=== PATIENT | female | born 1985 | race Caucasian/White ===

== ENCOUNTER 2021-10-06 13:30 | Outpatient (CLI) | payer SELFPAY | END 2021-10-06 13:31 | disposition home or self-care (01) | LOC: NFLDREF 10-12 15:04 | PROVIDERS: Visit Provider Physician Assistant | DX: O30.041 Twin pregnancy, dichorionic/diamniotic, first trimester (principal); Z3A.01 Less than 8 weeks gestation of pregnancy; Z11.3 Encounter for screening for infections with a predominantly sexual mode of transmission; Z36.89 Encounter for other specified antenatal screening | CPT/HCPCS: 36415; 76817; 86592; 86703; 86762; 86803; 86850; 86900; 86901; 87086; 87340; 87491; 87591 ==

== ENCOUNTER 2022-01-05 10:29 | Outpatient (CLI) | payer OTHER, SELFPAY ==
--- OUTSIDE RECORDS SUMMARY | 2022-01-05 11:50 | XMS_ITS | Encounter Summary ---
:1985 Author Organization [place] Address [address] [facility] [address] Care Team Providers Name Role Phone Preeti Bravo MD Unavailable Reason for Visit Reason Comments Ultrasound L2-Di/di twins, AMA, obesity Encounter Details Date Type Department Care Team Description 01/01/2022 Office Visit [facility] Preeti Tapia MD [address] [place], [place] [id number] Dichorionic Maternal Candy Arnold DO [address] [place] [address] diamniotic twin Medicine Center in second [place] trimester (Primary [address]) [address] [place] [address] Social History Tobacco Use Types Packs/Day Years Used Date Smoking Tobacco: Never Assessed Sex Assigned at Date Recorded Not on file COVID-19 Exposure Response Date Recorded In the last 10 days, have you been in contact with No / Unsu re 01/01/2022 8:32 AM PRESSURE DISPATCHER someone who was confirmed or suspected to have Coronavirus/COVID-19? documented as of this encounter Progress Notes Candy Arnold DO - 01/01/2022 10:00 AM CST Please see Imaging tab under Chart Review for details of today's US. Candy Arnold DO SURE DISPATCHER documented in this encounter Plan of Treatment Not on filedocumented as of this encounter Visit Diagnoses Diagnosis Dichorionic diamniotic twin in second trimester - Primary Twin , antepartum documented in this encounter Care Teams Software Configuration Analyst Relationship Specialty Start Date End Date Preeti Bravo MD Assigned OBGYN Provider 11/11/[address] [place] [address] [address] [place] [address] documented as of this encounter
--- OUTSIDE RECORDS SUMMARY | 2022-01-05 11:50 | XMS_ITS | Encounter Summary ---
:1985 Author Organization [place] Address [address] [place] [address] Care Team Providers Name Role Phone Unavailable Primary Care Provider Unavailable Reason for Visit Reason Comments Drug Screen preemployment [employer] Encounter Details Date Type Department Care Team Description 05/29/2007 Office Visit [facility] Health Nurse, Maye [facility] EXAM[facility] System in [place] [facility] SURVEY (Primary Dx) Occupational Medicin e [address] [place] [address] [address] [place] [address] Social History Tobacco Use Types Packs/Day Years Used Date Smoking Tobacco: Never Assessed Sex Assigned at Date Recorded Not on file documented as of this encounter Nursing Notes 05/29/2007 12:15 PM CDT >> KRISS GREEN 05/29/2007 12:18 pm Pre employment uds for [employer] uneventful collection. documented in this encounter Plan of Treatment Not on filedocumented as of this encounter Visit Diagnoses Diagnosis Health examination of defined subpopulat ion - Primary documented in this encounter
--- OUTSIDE RECORDS SUMMARY | 2022-01-05 11:50 | XMS_ITS | Clinical Summary ---
:1985 Author Organization [facility] Address [address] [place] [id number] Care Team Providers Name Role Phone Preeti Bravo MD Unavailable Encounters Date Type Specialty Care Team Description 01/01/2022 Office Visit Maternal and Preeti Bravo Dichorionic Medicine diamniotic twin Arnold, in se cond Candy Galvan, trimester ( Primary DO Dx) 01/01/2022 Hospital Encounter Radiology. Preeti Bravo, Dichpepito onic diamniotic twin in first trimester; Multigravida of advanced maternal age in first trimester Candy Arnold DO 01/01/2022 Travel 11/03/2021 Office Visit Maternal and May Dichorionic diamniotic twin in first trimester (Primary Dx); Medicine Franklyn Interiano Multigravida of advanced maternal age in first trimester MD Lawrence Novak Sabrina, MD 11/03/2021 Office Visit Maternal and [place] Multigravida of advanced maternal age in first trimester (Primary Dx); Medicine Franklyn Interiano re lated condition, antepartum; MD Kishore Twin Preeti Bravo MD Stoner, Natalie E 11/03/2021 Hospital Encounter Radiology. Rosette, May il related Franklyn Interiano conditionKishore MD antepartum Preeti Bravo MD 11/03/2021 Travel 10/28/2021 PRE VISIT Maternal and [place] Ultrasound Medicine DEON Weaver (US-confirm chorionicity); Genetic Front Desk Receptionist ing (-twin pregna ncy, AMA) 10/12/2021 Transcribe Orders Maternal and Fitzloff, May Pregnan cy related Medicine condition, antepartum (Mary Lou leilani Dx) 10/07/2021 Transcribe Orders Maternal and Fitzloff, May Pregnan cy related Medicine condition, antepartum (Mary Lou leilani Dx) 10/06/2021 Medical Correspondence Scan, MATER NAL Non-Provider MEDICINE CENTER PROVIDER SERVIC E REQUEST- OUTPAT [facility] from Last 3 Months Social History Tobacco Use Types Packs/Day Years Used Date Smoking Tobacco: Never Assessed Estimated Date of Delivery Comments Yes 05/23/2022 Based on last menstr ual period of 08/16/2021 Sex Assigned at Date Recorded Not on file COVID-19 Exposure Response Date Recorded In the last 10 days, have you been in contact with No / Unsu re 01/01/2022 8:32 AM EXPLOSIVE OPERATOR FUSE someone who was confirmed or suspected to have Coronavirus/COVID-19? Plan of Treatment Health Maintenance Due Date Last Done Comments ADVANCE CARE PLANNING 1985 ANNUAL REVIEW OF HM ORDERS 1985 HEPATITIS B IMMUNIZATION (1 1985 of 3 - 3-dose series) YEARLY PREVENTIVE VISIT 1985 COVID-19 Vaccine (#1) 05/24/1986 HIV SCREENING 2000 HEPATITIS C SCREENING 11/24/2003 PHQ-2 (once per calendar 02/14/2021 year) INFLUENZA VACCINE (#1) 2021 12/11/2008, 12/11/2008 MATERNAL SCREENING 11/29/2021 OBGCT (OB) 01/31/2022 DTAP/TDAP/TD IMMUNIZATION (4 03/30/2023 03/30/2013, - Td or Tdap) 03/12/2013, 05/28/1998 PAP 10/06/2024 10/06/2021, 11/25/2020 IPV IMMUNIZATION Aged Out No longer eligi ble based on patient's age to complete this to pic MENINGITIS IMMUNIZATION Aged Out No longe r eligible based on patient's age to complete this to pic Pneumococcal Vaccine: Aged Out No longer eligible based Pediatrics (0 to 5 Years) and on patient's age to At-Risk Patients (6 to 64 comple te this topic Years) Procedures Procedure Name Priority Date/Time Associated Comments Diagnosis MFM TWINS US Routine 01/01/2022 10:01 Dichorionic Results for this COMPREHENSIVE AM EXPLOSIVE OPERATOR FUSE diamniotic twin procedure a re in in first the resul ts trimester section. Multigravida of advanced maternal age in first trimester MFM TWINS NUCHAL Routine 11/03/2021 9:43 AM related Results for this TRANSLUCENCY W US CDT condition, procedure are in antepartum the results section. from Last 3 Months Results MFM Twins US Comprehensive (01/01/2022 10:01 AM EXPLOSIVE OPERATOR FUSE) Anatomical Region Laterality Modality Ultrasound Specimen (Source) Anatomical Collection Method Collection Time Re ceived Time Location / / Volume Laterality 01/01/2022 8:22 AM EXPLOSIVE OPERATOR FUSE Impressions 01/01/2022 4:57 PM EXPLOSIVE OPERATOR FUSE IMPRESSION 1) Diamniotic dichorionic twin at 19 5/7 weeks gestational age. 2) None of the anomalies commonly detect ed by ultrasound were evident in the detailed anatomic survey described above in either twin. 3) Growth parameters and estimated weight were consistent with an appropriate for gestation age pattern of growth in both twins. The intertwin discordance is within normal limits. 4) The amniotic fluid volume appeared no rmal around both twins. Narrative 01/01/2022 4:57 PM EXPLOSIVE OPERATOR FUSE Comprehensive Pat. Name: MILKA COREA Study Date: 03/03/2021 8:22am Pat. NO: [id number] Referring ??MD: ANDRÉS TOMAS Site: [facility] Engineering Model Maker: Leilani Horne RD MS : 1985 Age: 36 INDICATION Advanced Maternal Age, Obesity - BMI 36. Dichorionic, Diamniotic Twin gestation. METHOD Transabdominal ultrasound examination. V iew: Suboptimal view: limited by maternal body habitus Twin . Dichorionic-diamniotic. Number of fetuses: 2 DATING ? Date ?Details ?Gest. age ?NANCY LMP ?08/16/2021 ? 19 w + 5 d ? 05/23/2022 Prior assessment ? GA: 7 w + 1 d ?19 w + 4 d ? 05/24/2022 U/S Fetus 1 ? 01/01/2022 ? based upon AC, BPD, Femur, HC ? 20 w + 3 d ? 05/18/2022 U/S Fetus 2 ?based upon AC, BPD, Femur, HC ?20 w + 2 d ? 05/19/2022 Assigned dating ?Dating performed on 01/01/2022, based on the LMP ? 19 w + 5 d ? 05/23/2022 Fetus 1: GENERAL EVALUATION Cardiac activity present. FHR 149 bpm. movements present. Presentation breech, maternal left. Placenta Anterior, thick dividing membra ne. Umbilical cord 3 vessel cord. Amniotic fluid Amount of AF: normal. MVP 6.0 cm. Fetus 2: GENERAL EVALUATION Cardiac activity present. FHR 153 bpm. movements present. Presentation breech, maternal right. Placenta Posterior, thick dividing membr ane. Umbilical cord 3 vessel cord. Amniotic fluid Amount of AF: normal. MVP 6.2 cm. Fetus 1: BIOMETRY Main Biometry: BPD ?47.8 ?mm ? 20w 3d ?Hadlock OFD ?64.8 ?mm ? 20w 4d ?Nicolaides HC ?180.8 ?mm ?20w 3d ?Hadlock Cerebellum tr ?21.2 ? mm ?20w 1d ?Nicolaides AC ?150.3 ?mm ?20w 2d ?64% ?Hadlock Femur ?33.6 ? mm ?20w 4d ?Hadlock Humerus ?32.0 ?mm ? 20w 5d ?Tatiana Weight Calculation: EFW ? 352 ? g ? 82% ?Hadlock EFW (lb,oz) ? 0 lb 12 ? oz EFW by ? Hadlock ([id number]) EFW discordance ? 0.6 ? % Head / Face / Neck Biometry: Other Sports Coach Or Instructor ? 6.5 ? mm CM ?5.6 ? mm Nasal bone ? 6.8 ? mm Nuchal fold ? 5.0 ? mm Fetus 2: BIOMETRY Main Biometry: BPD ?46.2 ?mm ? 20w 0d ?Hadlock OFD ?63.1 ?mm ? 20w 2d ?Nicolaides HC ?175.2 ?mm ?20w 0d ?Hadlock Cerebellum tr ?19.8 ? mm ?18w 6d ?Nicolaides AC ?145.4 ?mm ?19w 6d ?49% ?Hadlock Femur ?35.6 ? mm ?21w 2d ?Hadlock Humerus ?34.4 ?mm ? 21w 5d ?Tatiana Weight Calculation: EFW ? 354 ? g ? 83% ?Hadlock EFW (lb,oz) ? 0 lb 12 ? oz EFW by ? Hadlock ([id number]) EFW discordance ? 0.6 ? % Head / Face / Neck Biometry: Other Sports Coach Or Instructor ? 6.8 ? mm CM ?5.1 ? mm Nasal bone ? 6.6 ? mm Nuchal fold ? 4.8 ? mm Fetus 1: ANATOMY The following structures appear normal: Head / Neck ? Cranium. Head size. Head shape. Lateral ventricles. Choroid plexus. Midline falx. Cavum septi pellucidi. Cerebellum. Cisterna magna. ? Parenchyma. Thalami. Vermis. ? Neck. Nuchal fold. Face ? Lips. Profile. Nose. Maxilla. Mandible. Orbits. Lens. Heart / Thorax ?4-chamber view. RVOT view. LVOT view. Situs. Aortic arch view. Bicaval view. Ductal arch view. Superior vena cava. Inferior vena cava. 3-vessel ? view. 6-kjaquj-tgcpjgn view. Cardiac position. Cardiac size. Cardiac rhythm. ? Right lung. Left lung. Diaphragm. Abdomen ? Abdominal wall. Cord insertion. Stomach. Kidneys. Bladder. Liver. Bowel. Genitals. Spine ?Cervical spine. Thoracic spine. Lumbar spine. Sacral spine. Extremities / Skeleton ?Rig ht hand. Left hand. Right foot. Left foot. Gender: female. Fetus 2: ANATOMY The following structures appear normal: Head / Neck ? Cranium. Head size. Head shape. Lateral ventricles. Choroid plexus. Midline falx. Cavum septi pellucidi. Cerebellum. Cisterna magna. ? Parenchyma. Thalami. Vermis. ? Neck. Nuchal fold. Face ? Lips. Profile. Nose. Maxilla. Mandible. Orbits. Lens. Heart / Thorax ?4-chamber view. RVOT view. LVOT view. Situs. Aortic arch view. Bicaval view. Ductal arch view. Superior vena cava. Inferior vena cava. 3-vessel ? view. 1-rpbiew-lpgtkkg view. Cardiac position. Cardiac size. Cardiac rhythm. ? Right lung. Left lung. Diaphragm. Abdomen ? Abdominal wall. Cord insertion. Stomach. Kidneys. Bladder. Liver. Bowel. Genitals. Spine ?Cervical spine. Thoracic spine. Lumbar spine. Sacral spine. Extremities / Skeleton ?Rig ht hand. Left hand. Right foot. Left foot. Gender: female. MATERNAL STRUCTURES Cervix ?Visualized ? Appearance: Appears Closed ? Approach - Transabdominal: Cervical length 56.7 mm Right Ovary ?Visualized Left Ovary ?Visualized RECOMMENDATION We discussed the findings on today's ult rasound with the patient. Patient declined genetic screening. We r eviewed the limitations of ultrasound in the diagnosis of aneuploidy and defects. Serial growth US every 4 weeks are advis ed with primary ob team. Patient should be started on a baby ASA due to moderate risk factors for preE- discussed this recommendation with patient today. S Weekly BPPs at 36 weeks unless indicated earlier. Delivery at 38 weeks. Return to primary provider for continued care. Thank you for the opportunity to partici drake in the care of this patient. If you have questions regarding today's evaluation or if we can be of further service, please contact the [facility]. anomalies may be present but not detected Procedure Note Candy Arnodl DO - 01/01/2022 Comprehensive Pat. Name:Akbar COREA Date:12/15 8:22am Pat. NO: [id number] MD:MAY [facility]Leilani Horne RDMS :1985Age:36 INDICATION Advanced Maternal Age, Obesity - BMI 36. Dichorionic, Diamniotic Twin gestation. METHOD Transabdominal ultrasound examination. V iew: Suboptimal view: limited by maternal body habitus Twin . Dichorionic-diamniotic. Number of fetuses: 2 DATING Date Details Gest. age NANCY LMP 08/16/2021 19 w + 5 d 05/23/2022 Prior assessment 10/06/2021 GA: 7 w + 1 d 19 w + 4 d 05/24/2022 U/S Fetus 1 01/01/2022 based upon AC, BP D, Femur, HC 20 w + 3 d 05/18/2022 U/S Fetus 2 based upon AC, BPD, Femur, H C 20 w + 2 d 05/19/2022 Assigned dating Dating performed on 12/15, based on the LMP 19 w + 5 d 05/23/2022 Fetus 1: GENERAL EVALUATION Cardiac activity present. FHR 149 bpm. movements present. Presentation breech, maternal left. Placenta Anterior, thick dividing membra ne. Umbilical cord 3 vessel cord. Amniotic fluid Amount of AF: normal. MVP 6.0 cm. Fetus 2: GENERAL EVALUATION Cardiac activity present. FHR 153 bpm. movements present. Presentation breech, maternal right. Placenta Posterior, thick dividing membr ane. Umbilical cord 3 vessel cord. Amniotic fluid Amount of AF: normal. MVP 6.2 cm. Fetus 1: BIOMETRY Main Biometry: BPD 47.8 mm 20w 3d Hadlock OFD 64.8 mm 20w 4d Nicolaides HC 180.8 mm 20w 3d Hadlock Cerebellum tr 21.2 mm 20w 1d Nicolaides AC 150.3 mm 20w 2d 64% Hadlock Femur 33.6 mm 20w 4d Hadlock Humerus 32.0 mm 20w 5d Tatiana Weight Calculation: EFW 352 g 82% Hadlock EFW (lb,oz) 0 lb 12 oz EFW by Hadlock ([id number]) EFW discordance 0.6 % Head / Face / Neck Biometry: Other Sports Coach Or Instructor 6.5 mm CM 5.6 mm Nasal bone 6.8 mm Nuchal fold 5.0 mm Fetus 2: BIOMETRY Main Biometry: BPD 46.2 mm 20w 0d Hadlock OFD 63.1 mm 20w 2d Nicolaides HC 175.2 mm 20w 0d Hadlock Cerebellum tr 19.8 mm 18w 6d Nicolaides AC 145.4 mm 19w 6d 49% Hadlock Femur 35.6 mm 21w 2d Hadlock Humerus 34.4 mm 21w 5d [facility] Weight Calculation: EFW 354 g 83% Hadlock EFW (lb,oz) 0 lb 12 oz EFW by Hadlock ([id number]) EFW discordance 0.6 % Head / Face / Neck Biometry: Other Sports Coach Or Instructor 6.8 mm CM 5.1 mm Nasal bone 6.6 mm Nuchal fold 4.8 mm Fetus 1: ANATOMY The following structures appear normal: Head / Neck Cranium. Head size. Head sha pe. Lateral ventricles. Choroid plexus. Midline falx. Cavum septi pellucidi. Cerebellum. Cisterna magna. Parenchyma. Thalami. Vermis. Neck. Nuchal fold. Face Lips. Profile. Nose. Maxilla. Sera ble. Orbits. Lens. Heart / Thorax 4-chamber view. RVOT view . LVOT view. Situs. Aortic arch view. Bicaval view. Ductal arch view. Superior vena cava. Inferior vena cava. 3-vessel view. 3-joaefw-zveddrz view. Cardiac po sition. Cardiac size. Cardiac rhythm. Right lung. Left lung. Diaphragm. Abdomen Abdominal wall. Cord insertion. Stomach. Kidneys. Bladder. Liver. Bowel. Genitals. Spine Cervical spine. Thoracic spine. Beatriz mbar spine. Sacral spine. Extremities / Skeleton Right hand. Left hand. Right foot. Left foot. Gender: female. Fetus 2: ANATOMY The following structures appear normal: Head / Neck Cranium. Head size. Head sha pe. Lateral ventricles. Choroid plexus. Midline falx. Cavum septi pellucidi. Cerebellum. Cisterna magna. Parenchyma. Thalami. Vermis. Neck. Nuchal fold. Face Lips. Profile. Nose. Maxilla. Sera ble. Orbits. Lens. Heart / Thorax 4-chamber view. RVOT view . LVOT view. Situs. Aortic arch view. Bicaval view. Ductal arch view. Superior vena cava. Inferior vena cava. 3-vessel view. 9-tzxgmk-drupewh view. Cardiac po sition. Cardiac size. Cardiac rhythm. Right lung. Left lung. Diaphragm. Abdomen Abdominal wall. Cord insertion. Stomach. Kidneys. Bladder. Liver. Bowel. Genitals. Spine Cervical spine. Thoracic spine. Beatriz mbar spine. Sacral spine. Extremities / Skeleton Right hand. Left hand. Right foot. Left foot. Gender: female. MATERNAL STRUCTURES Cervix Visualized Appearance: Appears Closed Approach - Transabdominal: Cervical katie gth 56.7 mm Right Ovary Visualized Left Ovary Visualized RECOMMENDATION We discussed the findings on today's joe rasrashaad with the patient. Patient declined genetic screening. We r eviewed the limitations of ultrasound in the diagnosis of aneuploidy and defects. Serial growth US every 4 weeks are advis ed with primary ob team. Patient should be started on a baby ASA due to moderate risk factors for preE- discussed this recommendation with patient today. S Weekly BPPs at 36 weeks unless indicated earlier. Delivery at 38 weeks. Return to primary provider for continued care. Thank you for the opportunity to partici drake in the care of this patient. If you have questions regarding today's evaluation or if we can be of further service, please contact the [facility]. anomalies may be present but not detected IMPRESSION 1) Diamniotic dichorionic twin at 19 5/7 weeks gestational age. 2) None of the anomalies commonly detect ed by ultrasound were evident in the detailed anatomic survey described above in either twin. 3) Growth parameters and estimated weight were consistent with an appropriate for gestation age pattern of growth in both twins. The intertwin discordance is within normal limits. 4) The amniotic fluid volume appeared no rmal around both twins. Preeti Bravo MD [facility] US ORDERABLES [facility] Twins Nuchal Trans w/US (11/03/2021 9:43 AM CDT) Anatomical Region Laterality Modality Ultrasound Specimen (Source) Anatomical Collection Method Collection Time Re ceived Time Location / / Volume Laterality 11/03/2021 9:03 AM CDT Impressions 11/03/2021 10:25 AM CDT IMPRESSION 1. Dichorionic diamniotic twins at 11w2d here for first trimester aneuploidy risk assessment. 2. There are separate placentas with a t hick inter-twin membrane consistent with a dichorionic diamniotic twin intrauterine . 3. Measurements are consistent with esta blished dates for both twins. 4. The nuchal translucency measurement i s within the normal range in both twins. 5. The nasal bone was visualized in both twins. 6. Visualized anatomy appears normal for early gestational age. 7. Evidence of prior subchorionic hemorr justen noted in lower placenta. Narrative 11/03/2021 10:25 AM CDT NT Pat. Name: MILKA COREA Study Date: 0 11/03/2021 9:03am Pat. NO: [id number] Referring ??MD: ANDRÉS TOMAS Site: [facility] Engineering Model Maker: Mabel Nielson RDMS : 1985 Age: 35 INDICATION Twins- Confirm Chorionicity, Advanced Ma ternal Age, Obesity - BMI 36 METHOD Transabdominal ultrasound examination. V iew: Suboptimal view: limited by maternal body habitus Twin . Number of fetuses: 2 Membrane Description: thick dividing mem brane visualized between fetuses 1 and 2 DATING ? Date ?Details ?Gest. age ?NANCY LMP ?08/16/2021 ? 11 w + 2 d ? 05/23/2022 Prior assessment ? 8/ ? GA: 7 w + 1 d ?11 w + 1 d ? 05/24/2022 U/S Fetus 1 ? 11/03/2021 ? based upon CRL ?11 w + 6 d ?05/19/2022 U/S Fetus 2 ?based upon CRL ? 12 w + 0 d ? 05/18/2022 Assigned dating ?Dating performed on 11/03/2021, based on the LMP ?11 w + 2 d ?05/23/2022 Fetus 1: GENERAL EVALUATION Cardiac activity present. Placenta anterior, thick dividing membra ne. Cord vessels normal insertion. Amniotic fluid normal amount. A subchorionic bleed was seen in the low er uterus that measured 16 x 9 x 7 mm and 19 x 13 x 21 mm . Fetus 2: GENERAL EVALUATION Cardiac activity present. Placenta posterior, thick dividing membr ane. Cord vessels normal insertion. Amniotic fluid normal amount. Fetus 1: BIOMETRY FHR ?167 ? bpm CRL ? 51.0 ? mm ?11w 6d ?Hadlock NT ? 1.20 ?mm Fetus 2: BIOMETRY FHR ?167 ? bpm CRL ? 52.8 ? mm ? 12w 0d ? Hadlock NT ? 1.10 ? mm Fetus 1: ANATOMY Face: Nasal bone present Neck: Normal Nuchal Translucency The following structures appear normal: Cranium. Abdominal wall. Stomach. Arms. Legs. The following structures could not be vi sualized: Bladder. Fetus 2: ANATOMY Face: Nasal bone present Neck: Normal Nuchal Translucency The following structures appear normal: Cranium. Abdominal wall. Stomach. Kokie rOnofre Arms. Legs. MATERNAL STRUCTURES Cervix ?Visualized ? Appearance: Appears Closed Right Ovary ?Not visualized Left Ovary ?Not visualized RECOMMENDATION Thank-you for referring your patient for a nuchal translucency ultrasound. We discussed the results of the ultrasou nd with the patient. She also met with genetic counseling and opted not to proceed with any genetic testing today. We discussed the finding of a subchorion ic hemorrhage on today's ultrasound. She reports bleeding early in the first trimester but did not have any subsequent symptoms. Today, we were also able to confirm that this is a dichorionic diamniotic twin intrauterine . Multiple gestation is associated with higher rates of almost every potential complication of , wit h the exceptions of post-term and macrosomia. Twin pregnancies are associated with higher rates of hypertensive disorders of , gestational diab etes, growth restriction and/or discordant growth, malpresentation, and hemorrhage. The most serious risk is that of spontaneous deli very (PTD), which plays a major role in the increased mortality and short-term and long-term morbidity observed in these infants. Higher rates of intrauterine gr owth restriction (IUGR), congenital anomalies, and cerebral palsy also contribute to adverse outcome in twin births. More than 50% of twin gestations are likely to be deliver ed via . Dichorionic/diamniotic twin pregnancies have the most favorable outcomes of twin pregnancies. Recommendations include a targeted comprehensive anatomy examination at 18-20 weeks followed by serial growth ultrasound every 4 weeks until delivery. The routine use of antepartum testing, such as nonstress tests (NST), biophysical profiles (BPP), amniotic fluid determination, and Doppler velocimetry in uncomplicated DCDA twin pregnancies has not been demonstrated to be beneficial. Kumar catherine, it is our practice to offer weekly BPP (or NST and MVP) starting at 36w0d. Mode of delivery is dependent on presentation as well as the comfort of her providers with potential breech extraction. Recommend delivery at 38-38w6d gestation if otherwise undelivered, given the increased risk of adverse outcomes with prolonged gestatio n. She was scheduled for her comprehensive anatomy examination today. Return to primary provider for continued care. If you have questions regarding today's evaluation or if we can be of further service, please contact the [facility]. anomalies may be present but not detected Procedure Note Preeti Bravo MD - 11/03/2021 NT Pat. Name:Akbar COREA Date:10/16 9:03am Pat. NO: [id number] MD:YANELI SERRANO [facility]LA Brandt :1985Age:35 INDICATION Twins- Confirm Chorionicity, Advanced Ma ternal Age, Obesity - BMI 36 METHOD Transabdominal ultrasound examination. V iew: Suboptimal view: limited by maternal body habitus Twin . Number of fetuses: 2 Membrane Description: thick dividing mem brane visualized between fetuses 1 and 2 DATING Date Details Gest. age NANCY LMP 08/16/2021 11 w + 2 d 05/23/2022 Prior assessment 10/06/2021 GA: 7 w + 1 d 11 w + 1 d 05/24/2022 U/S Fetus 1 11/03/2021 based upon CRL 11 w + 6 d 05/19/2022 U/S Fetus 2 based upon CRL 12 w + 0 d Assigned dating Dating performed on 10/16, based on the LMP 11 w + 2 d 05/23/2022 Fetus 1: GENERAL EVALUATION Cardiac activity present. Placenta anterior, thick dividing membra ne. Cord vessels normal insertion. Amniotic fluid normal amount. A subchorionic bleed was seen in the low er uterus that measured 16 x 9 x 7 mm and 19 x 13 x 21 mm . Fetus 2: GENERAL EVALUATION Cardiac activity present. Placenta posterior, thick dividing membr ane. Cord vessels normal insertion. Amniotic fluid normal amount. Fetus 1: BIOMETRY FHR 167 bpm CRL 51.0 mm 11w 6d Hadlock NT 1.20 mm Fetus 2: BIOMETRY FHR 167 bpm CRL 52.8 mm 12w 0d Hadlock NT 1.10 mm Fetus 1: ANATOMY Face: Nasal bone present Neck: Normal Nuchal Translucency The following structures appear normal: Cranium. Abdominal wall. Stomach. Arms. Legs. The following structures could not be vi sualized: Bladder. Fetus 2: ANATOMY Face: Nasal bone present Neck: Normal Nuchal Translucency The following structures appear normal: Cranium. Abdominal wall. Stomach. Bladde r. Arms. Legs. MATERNAL STRUCTURES Cervix Visualized Appearance: Appears Closed Right Ovary Not visualized Left Ovary Not visualized RECOMMENDATION Thank-you for referring your patient for a nuchal translucency ultrasound. We discussed the results of the ultrasou nd with the patient. She also met with genetic counseling and opted not to proceed with any genetic testing today. We discussed the finding of a subchorion ic hemorrhage on today's ultrasound. She reports bleeding early in the first trimester but did not have any subsequent symptoms. Today, we were also able to confirm that this is a dichorionic diamniotic twin intrauterine . Multiple gestation is associated with higher rates of almost every potential complication of , wit h the exceptions of post-term and macrosomia. Twin pregnancies are associated with higher rates of hypertensive disorders of , gestational diab etes, growth restriction and/or discordant growth, malpresentation, and hemorrhage. The most serious risk is that of spontaneous deli very (PTD), which plays a major role in the increased mortality and short-term and long-term morbidity observed in these infants. Higher rates of intrauterine gr owth restriction (IUGR), congenital anomalies, and cerebral palsy also contribute to adverse outcome in twin births. More than 50% of twin gestations are likely to be deliver ed via . Dichorionic/diamniotic twin pregnancies have the most favorable outcomes of twin pregnancies. Recommendations include a targeted comprehensive anatomy examination at 18-20 weeks followed by serial growth ultrasound every 4 weeks until delivery. The routine use of antepartum testing, such as nonstress tests (NST), biophysical profiles (BPP), amniotic fluid determination, and Doppler velocimetry in uncomplicated DCDA twin pregnancies has not been demonstrated to be beneficial. Kumar catherine, it is our practice to offer weekly BPP (or NST and MVP) starting at 36w0d. Mode of delivery is dependent on presentation as well as the comfort of her providers with potential breech extraction. Recommend delivery at 38-38w6d gestation if otherwise undelivered, given the increased risk of adverse outcomes with prolonged gestatio n. She was scheduled for her comprehensive anatomy examination today. Return to primary provider for continued care. If you have questions regarding today's evaluation or if we can be of further service, please contact the [facility]. anomalies may be present but not detected IMPRESSION 1. Dichorionic diamniotic twins at 11w2d here for first trimester aneuploidy risk assessment. 2. There are separate placentas with a t hick inter-twin membrane consistent with a dichorionic diamniotic twin intrauterine . 3. Measurements are consistent with esta blished dates for both twins. 4. The nuchal translucency measurement i s within the normal range in both twins. 5. The nasal bone was visualized in both twins. 6. Visualized anatomy appears normal for early gestational age. 7. Evidence of prior subchorionic hemorr justen noted in lower placenta. 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
--- OUTSIDE RECORDS SUMMARY | 2022-01-05 11:50 | XMS_ITS | Clinical Summary ---
:1985 Author Organization [facility] [place] [address] Care Team Providers Name Role Phone Clinic, No Pcp Or Primary Care Provider Unavailable Allergies Active Allergy Reactions Severity Noted Date Comments Chicken Derived 04/12/2006 Pork/Porcine Containing Products 04/12/19 07 Medications Medication Sig Dispensed Refills Start Date End Date Status ZYRTEC 10 MG TAB take 1 tablet 0 08/07/2007 Active (10 mg) by oral route once daily FLUoxetine (PROZAC) 10 Take 1 capsule 90 capsule 1 02/24/2016 Active mg capsuleIndications: by mouth every Depression with anxiety morning. To take with 20 mg for total daily dose of 30 mg FLUoxetine (PROZAC) 20 Take 1 capsule 90 capsule 1 02/24/2016 Active mg capsuleIndications: by mouth every Depression with anxiety morning. Take with 10 mg dose for a total of 30 mg daily. desogestrel-ethinyl Take 1 tablet by 3 Package 3 02/24/2016 Active estradiol 0.15-30 mouth once mg-mcg (ORTHO-CEPT, daily. 28,) tabletIndications: General counseling for prescription of oral contraceptives acyclovir (ZOVIRAX) 800 Take 1 tablet by 35 tablet 4 7 Active mg tabletIndications: mouth 5 times Herpes simplex without daily. mention of complication Active Problems Problem Noted Date Depression with anxiety 12/20/2013 ASCUS with positive high risk HPV cervical 05/15/2010 Overview: 05/2010. Plan: Pap/HPV 02/2019 Unspecified asthma(493.90) 04/25/2008 Moderate dysplasia of cervix 04/22/2006 Overview: Colposcopy x3 BALJINDER ll on colpo 03/2005 BALJINDER l on colpo 07/22/2005 Neg on colpo 07/02/10 NIL pap/neg HPV testing on 10/10/13 Therefore paps q3 years Allergic rhinitis due to animal (cat) (dog) hair and d bonnie 04/12/2006 BALJINDER II (cervical intraepithelial neoplasia II) 006 Overview: 04/01/2005 [place]: BALJINDER II ASCCP recommends: History of CIN2 - CIN3 : Cotesting every 3 years for 20 years. Plan: Pap/HPV 02/2019 Low grade squamous intraepithelial lesion (LGSIL) at r isk for high grade 03/04/2005 squamous intraepithelial lesion (HGSIL) on cytologic s mear of cervix Overview: 03/04/2005 Cannot exclude HSIL Resolved Problems Problem Noted Date Resolved Date Supervision of normal first 06/18/2008 Major depressive disorder, single episode, moderate 09/12/19 08 01/27/2012 Allergic rhinitis, cause unspecified 04/12/2006 Encounters Date Type Specialty Care Team Description 10/07/2021 Lab Requisition Lizabeth Dinero PA-C from Last 3 Months Immunizations Name Administration Dates Next Due Tdap 03/12/2013 Family History Medical History Relation Name Comments Good Health Father Cancer Maternal Grandmother pancreatic cancer Diabetes Maternal Grandmother Hyperlipidemia Maternal Grandmother Good Health Mother Cancer-breast Other maternal great a unt Cancer-breast Paternal Grandmother Hyperlipidemia Sister Relation Name Status Comments Father Maternal Grandmother Mother Other Paternal Grandmother Sister Social History Tobacco Use Types Packs/Day Years Used Date Former Smoker Quit: 02/14/19 05 Smokeless Tobacco: Never Used Tobacco Cessation: Counseling Given: Yes Alcohol Use Standard Drinks/Week Comments Yes 0 (1 standard drink = 0.6 oz pure alcoho l) 1x/month Alcohol Habits Answer Date Recorded How often do you have a drink containing alcohol? Not asked How many drinks containing alcohol do you have on a typical Not asked day when you are drinking? How often do you have six or more drinks on one occasion? No t asked Comment: 1x/month 01/27/2012 Sex Assigned at Date Recorded Not on file Obstetrics History Para Term AB IAB SAB Ectopic Multiple Living Live Births 4 1 1 3 3 1 Date Outcome GA Total Labor/2nd/3rd Weight Sex Delivery Anes PTL Shirlene A 1 A5 Name Clin Labor Term 41w 4.68 kg M 0d (10 lb 5 oz) SAB 4w0 d SAB 4w0 d SAB 4w0 d Last Filed Vital Signs Vital Sign Reading Time Taken Comments Blood Pressure 121/74 02/24/2016 10:39 AM SCENIC ARTIST Pulse 80 02/24/2016 10:39 AM SCENIC ARTIST Temperature 36.7 ??C (98 ??F) 11/04/2015 9:15 AM CDT Respiratory Rate - - Oxygen Saturation 97% 02/24/2016 10:39 AM SCENIC ARTIST Inhaled Oxygen Concentration - - Weight 100.2 kg (220 lb 12.8 oz) 02/24/2016 10:39 AM SCENIC ARTIST Height 170.2 cm (5' 7) 02/24/2016 10:39 AM SCENIC ARTIST Body Mass Index 34.58 02/24/2016 10:39 AM SCENIC ARTIST Plan of Treatment Health Maintenance Due Date Last Done Comments COVID-19 vaccine series (#1) 05/24/1986 BMI (ht and wt on same day) for 02/23/2017 02/24/2016, 10/16, age 18+ 05/30/2015 Depression screening for age 12+ 02/23/2017 02/24/2016, 09/2015, 04/22/2015 Influenza for age 9-49 10/15/2021 Tetanus booster 03/12/2023 03/12/2013 Pap test for age 21-65 10/06/2024 10/06/2021, 10/06/2021, 11/25/2020, Additional history exists Hepatitis C screening for age Completed 05/06/2006 18-79 Tdap Completed 03/12/2013 Procedures Procedure Name Priority Date/Time Associated Diagnosis Comme nts LAB TRACKING EVENT Routine 10/06/2021 1:30 PM CDT TRAVEL FREIGHT AND PASSENGER AGENT THIN PREP PAP Routine 10/06/2021 1:30 PM Resu lts for this SCREEN IMAGED CDT procedure are in the results section. HPV THIN PREP Routine 10/06/2021 1:30 PM Results for this CDT procedure are i n the results section. from Last 3 Months Results LAB TRACKING EVENT (10/06/2021 1:30 PM CDT) Specimen Anatomical Collection Method Collection Time Receive d Time (Source) Location / / Volume Laterality Other (Other) Client Collect / 10/06/2021 1:30 PM 09/15 4:15 Unknown CDT PM CDT Lizabeth Dinero PA-C LAB BILL ONLY Performing Organization Address City/State/ZIP Code Phon e Number [facility] [address] [place] [address] LABORATORY-CENTRAL 2000 LABORATORY (ABNORMAL) TRAVEL FREIGHT AND PASSENGER AGENT THIN PREP PAP SCREEN IMAGED (10/06/2021 1:30 PM CDT) Component Value Ref Test Analysis Performed At [facility] gist Range Method Time Signature Case Report Gynecologic Cytology Report ? Case: [id number] ? 10/21/2021 [facility] Authorizing Provider: ??Lizabeth So PA-C ?Collected: ? 10/06/2021 1330 ? 5:14 PM HEALTH Ordering Location: ? [facility] CENTRAL LAB ?Received: ?10/07/2021 1642 ? CDT [place] BORATORY-C First Screen: ? Selina Castillo ? ENTRAL Pathologist: ? Jose Rosado MD ? LABORATORY Specimen: ?TRAVEL FREIGHT AND PASSENGER AGENT ThinPrep Vial Screening, Cervical ? INTERPRETATI LOW GRADE SQUAMOUS (none) 10/21/2021 [facility] Electronically ON/RESULT INTRAEPITHELIAL 5:14 PM HEALTH sign ed by LESION (LSIL) (A) CDT LABORATORY-C Jose Rosado MD on LABORATORY 10/21/2021 at 5:14 PM ORGANISM(S) Shift in ethna 10/21/2021 [facility] suggestive of 5:14 PM HEALTH bacterial CDT LABORATORY-C vaginosis ENTRAL LABORATORY SPECIMEN Satisfactory for evaluation 10/21/2021 [facility] ADE[facility]AC[facility] No endocervical component seen in a patient 5:14 PM HEALTH CDT LABORATORY-C ENTRAL LABORATORY HPV REQUEST HPV and PAP 10/21/2021 [facility] 5:14 PM HEALTH CDT LABORATORY-C ENTRAL LABORATORY Date of LMP 10/21/2021 [facility] 5:14 PM HEALTH CDT LABORATORY-C ENTRAL LABORATORY Comment: unknown Last Pap Date 10/24/2018 10/21/2021 5:14 PM [facility] CDT LABORATORY-CENTRAL LABORATORY Abnormal Pap or [place] No 10/21/2021 5:14 PM [facility] Bx in last 5 years CDT LABORATORY- CENTRAL LABORATORY Menstrual Status 10/21/2021 5:14 PM ABHILASH [facility] CDT LABORATORY-CENTRAL LABORATORY [place] Bx Done Today No 10/21/2021 5:14 PM AL Ey[facility] T LABORATORY-CENTRAL LABORATORY Additional 10/21/2021 5:14 PM [facility] Information CDT LABORATORY-CENTRAL LABORATORY Comment: Interpreted at [facility], Central Laboratory - [address], [place] [address] Automated Review Successful 10/21/2021 5:14 PM CDT [facility] LABORATORY-CENTRAL L ABORATORY Comment: Specimen processed successfully by automated telegraph service clerk device, ThinPrep Imaging System, [employer] ANCILLARY TESTING HPV Ordered, 10/21/2021 5:14 PM [facility] TRAVEL FREIGHT AND PASSENGER AGENT Please see CDT LABORATORY-CENTRAL separate report LABORATORY Note The pap test is a 10/21/2021 5:14 PM AL Eyen[facility]ze screening CDT LABORATORY-CENTRAL technique, not a LABORATORY diagnostic procedure. It is used primarily to screen for squamous cancers and precursor lesions. Published studies have shown that it is subject to both false negative and false positive results. The pap test should not be used as the sole means to diagnose or exclude pre-malignant and malignant lesions. Specimen Anatomical Collection Method Collection Time Receive d Time (Source) Location / / Volume Laterality Other (Cervical) 10/06/2021 1:30 PM 10/07 4:42 CDT PM CDT May Meryl Dinero PA-C PATHOLOGY/CYTOLOGY Performing Organization Address City/[facility] Code Phon e Number [facility] [phone] [place] [address] [place] [address] LABORATORY-CENTRAL 1999 LABORATORY (ABNORMAL) HPV HIGH RISK (10/06/2021 1:30 PM CDT) [facility] gist Method Time Signature TYPE 16 Negative Negative 10/09/2021 [facility] 2:56 PM CDT LABORATORY-[place] TRAL LABORATORY TYPE 18 Negative Negative 10/09/2021 [facility] 2:56 PM CDT LABORATORY-[place] TRAL LABORATORY OTHER HIGH Positive (A) Negative 10/09/2021 [facility] RISK TYPES 2:56 PM CDT LABORATORY-[place] TRAL LABORATORY Specimen Anatomical Collection Method Collection Time Receive d Time (Source) Location / / Volume Laterality Other (Cervical) 10/06/2021 1:30 PM 10/07 4:42 CDT PM CDT Narrative [facility] LABORATORY-CENTRAL LABORAT ORY - 10/09/2021 2:56 PM CDT Specimen is positive for the DNA of any one of, or combination of, the following high risk HPV types: 31, 33, 35, 39, 45, 51, 52, 56, 58, 59, 66, 68. HPV types 16 and 18 DNA were undetectable or below the pre-set threshold. ? Methodology: Felecia Farnaz 4800 HPV Test May Meryl Dinero PA-C MICROBIOLOGY Performing Organization Address City/[facility] Phon e Number [facility] [address] [place] [address] [place] [address] LABORATORY-CENTRAL 1999 LABORATORY from Last 3 Months Care Teams Television Mechanic Relationship Specialty Start Date End Date Clinic, No Pcp Or PCP - General 09/17/16 .
--- OUTSIDE RECORDS SUMMARY | 2022-01-05 11:50 | XMS_ITS | Encounter Summary ---
:1985 Author Organization [facility] Address [address] [place] [address] Care Team Providers Name Role Phone Unavailable Primary Care Provider Unavailable Reason for Referral Consultation (Routine: Next available opening) - Pending Review Specialty Diagnoses / Procedures Referred By Contact Refer red To Contact Diagnoses related condition, antepartum Lizabeth Dinero [place] [address] [place] [address] Referral ID Status Reason Start Date Expiration Date Visits V isits Requested Authorized [id number] Pending 10/12/2021 10/12/2022 1 1 Review Encounter Details Date Type Department Care Team Description 10/12/2021 Transcribe Orders [facility] Rosette Ap ril related Maternal [facility] MEDICAL antepartum (Primary [place] [address] [address]) [address] [place], [place] [address] [address] [place], [place] [phone] [address] (Work) [phone] Social History Tobacco Use Types Packs/Day Years Used Date Smoking Tobacco: Never Assessed Sex Assigned at Date Recorded Not on file documented as of this encounter Plan of Treatment Scheduled Referrals Name Type Priority Associated Diagnoses Order S cheduambrose MFM Genetic Referral Routine: Next related Expected: Counseling available opening condition, 10/12/2021 antepartum (Approximate), Expires: 11/05/2021 documented as of this encounter Visit Diagnoses Diagnosis related condition, antepartum - Primary documented in this encounter
--- OUTSIDE RECORDS SUMMARY | 2022-01-05 11:50 | XMS_ITS | Encounter Summary ---
:1985 Author Organization [facility] Address [address] [place] [address] Care Team Providers Name Role Phone Unavailable Primary Care Provider Unavailable Reason for Referral Diagnostic Imaging Ultrasound (Routine) - Pending Review Specialty Diagnoses / Procedures Referred By Contact Refer red To Contact Diagnoses Dichorionic diamniotic twin in first trimester Multigravida of advanced maternal age in first trimester Preeti Bravo MD Procedures MFM Twins [facility] [address] [facility] [address] [place], [place] [address] Referral ID Status Reason Start Date Expiration Date Visits V isits Requested Authorized [id number] Pending 11/03/2021 11/03/2022 1 1 Review Reason for Visit Reason Comments Genetic Counseling AMA Ultrasound 1st trimester complete-Confi rm chorionicity, AMA, obesity Encounter Details Date Type Department Care Team Description 11/03/2021 Office Visit [facility] [place] [address] [facility] [place] [id number] Dichorionic diamniotic twin in first trimester (Primary Dx); Maternal Franklyn Interiano MD [address] [facility] [address] [place] [address] Multigravida of advanced maternal age in first trimester Medicine Center Preeti Bravo MD [address] [facility] [address] [place] [address] Ault Yaritza [facility] [address] [place] [address] Social History Tobacco Use Types Packs/Day Years Used Date Smoking Tobacco: Never Assessed Sex Assigned at Date Recorded Not on file COVID-19 Exposure Response Date Recorded In the last 10 days, have you been in contact with No / Unsu re 11/03/2021 7:41 AM CDT someone who was confirmed or suspected to have Coronavirus/COVID-19? documented as of this encounter Progress Notes Preeti Bravo MD - 11/03/2021 9:15 AM CDT Please see the full imaging report from the ViewPoint program under the imaging tab. Preeti Bravo MD Maternal Medicine documented in this encounter Plan of Treatment Not on filedocumented as of this encounter Results MFM Twins US Comprehensive (01/01/2022 10:01 AM ADMISSIONS CONSULTANT) Anatomical Region Laterality Modality Ultrasound Specimen (Source) Anatomical Collection Method Collection Time Re ceived Time Location / / Volume Laterality 01/01/2022 8:22 AM ADMISSIONS CONSULTANT Impressions 01/01/2022 4:57 PM ADMISSIONS CONSULTANT IMPRESSION 1) Diamniotic dichorionic twin at 19 [...] around both twins. Narrative 01/01/2022 4:57 PM ADMISSIONS CONSULTANT Comprehensive Pat. Name: MILKA COREA Study Date: 03/03/2021 8:22am Pat. NO: [id number] Referring ??MD: ANDRÉS TOMAS Site: [facility] Supervisor Cap And Hat Production: Leilani Horne RD MS : 1985 Age: 36 INDICATION Advanced Maternal Age, Obesity - BMI 36. Dichorionic, Diamniotic Twin gestation. METHOD Transabdominal ultrasound examination. V iew: Suboptimal view: limited by maternal body habitus Twin . Dichorionic-diamniotic. Number of fetuses: 2 DATING ? Date ?Details ?Gest. age ?NANCY LMP ?08/16/2021 ? 19 w + 5 d ? 05/23/2022 Prior assessment ? 8/ [...] 12 ? oz EFW by ? [place] ([id number]) EFW discordance ? 0.6 ? % Head / Face / Neck Biometry: Extrusion Process Operator ? 6.5 ? mm CM ?5.6 ? [...] 12 ? oz EFW by ? [place] ([id number]) EFW discordance ? 0.6 ? % Head / Face / Neck Biometry: Extrusion Process Operator ? 6.8 ? mm CM ?5.1 ? [...] cava. Inferior vena cava. 3-vessel ? view. 0-kizclk-orufblf view. Cardiac position. Cardiac size. Cardiac rhythm. [...] cava. Inferior vena cava. 3-vessel ? view. 6-oeghyp-fezwsns view. Cardiac position. Cardiac size. Cardiac rhythm. [...] We discussed the findings on today's ult rasrashaad with the patient. Patient declined genetic [...] present but not detected Procedure Note Candy Arnold, - 01/01/2022 Comprehensive Pat. Name:Akbar COREA Date:12/15 8:22am Pat. NO: [id number] MD:YANELI SERRANO [facility]Leilani Horne RDMS :1985Age:36 INDICATION Advanced [...] 0 lb 12 oz EFW by [place] ([id number]) EFW discordance 0.6 % Head / Face / Neck Biometry: Extrusion Process Operator 6.5 mm CM 5.6 mm Nasal bone 6.8 mm Nuchal fold 5.0 mm Fetus 2: BIOMETRY Main Biometry: BPD 46.2 mm 20w 0d [place] OFD 63.1 mm 20w 2d Nicolaides HC 175.2 mm 20w 0d [place] Cerebellum tr 19.8 mm 18w 6d Nicolaides AC 145.4 mm 19w 6d 49% [place] Femur 35.6 mm 21w 2d [place] Humerus 34.4 mm 21w 5d Tatiana Weight Calculation: EFW 354 g 83% [place] EFW (lb,oz) 0 lb 12 oz EFW by [place] ([id number]-FL) EFW discordance 0.6 % Head / Face / Neck Biometry: Extrusion Process Operator 6.8 mm CM 5.1 mm Nasal bone [...] vena cava. Inferior vena cava. 3-vessel view. 0-ddcrgn-zbebkxc view. Cardiac po sition. Cardiac size. Cardiac [...] vena cava. Inferior vena cava. 3-vessel view. 4-vtemdk-azkspfh view. Cardiac po sition. Cardiac size. Cardiac [...] RECOMMENDATION We discussed the findings on today's [facility] rasound with the patient. Patient declined genetic [...] rmal around both twins. Preeti Bravo MD [facility] US ORDERABLES documented in this encounter Visit Diagnoses Diagnosis Dichorionic diamniotic twin in first trimester - Primary Twin , antepartum Multigravida of advanced maternal age in first trimester Dichorionic diamniotic twin in first trimester Twin , antepartum Multigravida of advanced maternal age in first trimester documented in this encounter
--- OUTSIDE RECORDS SUMMARY | 2022-01-05 11:50 | XMS_ITS | Encounter Summary ---
:1985 Author Organization [facility] Address [address] [place] [address] Care Team Providers Name Role Phone Preeti Bravo MD Unavailable Reason for Visit Reason Comments Ultrasound US-confirm chorionicity Genetic Counseling GC-twin , AMA Encounter Details Date Type Department Care Team Description 10/28/2021 PRE VISIT [facility] [place] Ultra sound (US-confirm Maternal Medicine RN chor [facility]); Genetic Center [place] [facility] (GC-twin [address] pregnanc y, AMA) [address] [place] [address] Social History Tobacco Use Types Packs/Day Years Used Date Smoking Tobacco: Never Assessed Sex Assigned at Date Recorded Not on file documented as of this encounter Plan of Treatment Not on filedocumented as of this encounter Visit Diagnoses Not on filedocumented in this encounter Care Teams Diabetes Clinical Manager Relationship Specialty Start Date End Date Preeti Bravo MD Assigned OBGYN Provider 11/11/[address] [place] [address] [address] [place] [address] documented as of this encounter
--- OUTSIDE RECORDS SUMMARY | 2022-01-05 11:50 | XMS_ITS | Encounter Summary ---
:1985 Author Organization [facility] Address [address] [place] [address] Care Team Providers Name Role Phone Unavailable Primary Care Provider Unavailable Encounter Details Date Type Department Care Team Description 11/03/2021 Travel Social History Tobacco Use Types Packs/Day Years Used Date Smoking Tobacco: Never Assessed Sex Assigned at Date Recorded Not on file COVID-19 Exposure Response Date Recorded In the last 10 days, have you been in contact with No / Unsu re 11/03/2021 7:41 AM CDT someone who was confirmed or suspected to have Coronavirus/COVID-19? documented as of this encounter Plan of Treatment Not on filedocumented as of this encounter Visit Diagnoses Not on filedocumented in this encounter
--- OUTSIDE RECORDS SUMMARY | 2022-01-05 11:50 | XMS_ITS | Encounter Summary ---
:1985 Author Organization [place] Address Formerly [facility] [place] [address] Care Team Providers Name Role Phone Preeti Bravo MD Unavailable Reason for Referral Diagnostic Imaging Ultrasound (Routine) - Pending Review Specialty Diagnoses / Procedures Referred By Contact Refer red To Contact Diagnoses Dichorionic diamniotic twin in first trimester Multigravida of advanced maternal age in first trimester Preeti Bravo MD Procedures MFM Twins [facility] [address] [facility] [address] [place], [place] [address] Referral ID Status Reason Start Date Expiration Date Visits V isits Requested Authorized [id number] Pending 11/03/2021 11/03/2022 1 1 Review OPERATOR Reason for Visit Diagnostic Imaging Ultrasound (Routine) - Pending Review Specialty Diagnoses / Procedures Referred By Contact Refer red To Contact Diagnoses Dichorionic diamniotic twin in first trimester Multigravida of advanced maternal age in first trimester Preeti Bravo MD Procedures MFM Twins [facility] [address] [facility] [address] [place], [place] [address] Referral ID Status Reason Start Date Expiration Date Visits V isits Requested Authorized [id number] Pending 11/03/2021 11/03/2022 1 1 Review Encounter Details Date Type Department Care Team Description 01/01/2022 Hospital Encounter [facility] Yordy Bravo MD [address] [facility] [address] [facility] [address] [place] [address] Dichorionic diamniotic twin in first trimester; Maternal Warren Arnoldora BlankeDO [address] [place] [address] Multigravida of advanced maternal age in first trimester [facility] [place] [address] [facility] [address] [place] [address] Social History Tobacco Use Types Packs/Day Years Used Date Smoking Tobacco: Never Assessed Sex Assigned at Date Recorded Not on file COVID-19 Exposure Response Date Recorded In the last 10 days, have you been in contact with No / Unsu re 01/01/2022 8:32 AM DYE OPERATOR someone who was confirmed or suspected to have Coronavirus/COVID-19? documented as of this encounter Plan of Treatment Not on filedocumented as of this encounter Procedures Procedure Name Priority Date/Time Associated Comments Diagnosis MFM TWINS US Routine 01/01/2022 10:01 Dichorionic Results for this COMPREHENSIVE AM DYE OPERATOR diamniotic twin procedure a re in in first the resul ts trimester section. Multigravida of advanced maternal age in first trimester documented in this encounter Results MFM Twins US Comprehensive (01/01/2022 10:01 AM DYE OPERATOR) Anatomical Region Laterality Modality Ultrasound Specimen (Source) Anatomical Collection Method Collection Time Re ceived Time Location / / Volume Laterality 01/01/2022 8:22 AM DYE OPERATOR Impressions 01/01/2022 4:57 PM DYE OPERATOR IMPRESSION 1) Diamniotic dichorionic twin at 19 [...] around both twins. Narrative 01/01/2022 4:57 PM DYE OPERATOR Comprehensive Pat. Name: MILKA COREA Study Date: 03/03/2021 8:22am Pat. NO: [id number] Referring ??MD: ANDRÉS TOMAS Site: [facility] Vehicle Service Attendant: Leilani Horne RD MS : 1985 Age: [...] Biometry: BPD ?47.8 ?mm ? 20w 3d ?Kemal CROWE ?64.8 ?mm ? 20w 4d ?Nicolaides HC ?180.8 ?mm ?20w 3d ?Hadlock Cerebellum tr ?21.2 ? mm ?20w 1d ?Nicolaides AC ?150.3 ?mm ?20w 2d ?64% ?Hadlock Femur ?33.6 ? mm ?20w 4d ?Hadlock Humerus ?32.0 ?mm ? 20w 5d ?Tatiana Weight Calculation: EFW ? 352 ? g ? 82% ?Hadlock EFW (lb,oz) ? 0 lb 12 ? oz EFW by ? Hadlock ([id number]) EFW discordance ? 0.6 ? % Head / Face / Neck Biometry: Mammalogy Teacher ? 6.5 ? mm CM ?5.6 ? [...] 12 ? oz EFW by ? Hadlock ([id number]-BK-[id number]-FL) EFW discordance ? 0.6 ? % Head / Face / Neck Biometry: Mammalogy Teacher ? 6.8 ? mm CM ?5.1 ? [...] cava. Inferior vena cava. 3-vessel ? view. 3-xtxvbg-ehjlqyu view. Cardiac position. Cardiac size. Cardiac rhythm. [...] cava. Inferior vena cava. 3-vessel ? view. 1-pqiklr-nyqadtv view. Cardiac position. Cardiac size. Cardiac rhythm. [...] RECOMMENDATION We discussed the findings on today's ulunique rasound with the patient. Patient declined genetic [...] Procedure Note Candy Arnold, - 01/01/2022 Comprehensive Lawanda. Name:Charlie COREAnaldo Date:12/15 8:22am Pat. NO: [id number] MD:YANELI SERRANO [facility]Leilani Horne RDMS :1985Age:36 INDICATION Advanced Maternal Age, [...] 0 lb 12 oz EFW by Hadlock ([id number]-PQ-IE-FL) EFW discordance 0.6 % Head / Face / Neck Biometry: Mammalogy Teacher 6.5 mm CM 5.6 mm Nasal bone [...] 0 lb 12 oz EFW by Hadlock ([id number]-QQ-CY-[id number]) EFW discordance 0.6 % Head / Face / Neck Biometry: Mammalogy Teacher 6.8 mm CM 5.1 mm Nasal bone [...] vena cava. Inferior vena cava. 3-vessel view. 6-ozqwfj-hpqvszz view. Cardiac po sition. Cardiac size. Cardiac [...] vena cava. Inferior vena cava. 3-vessel view. 2-ostpay-cjvkgjy view. Cardiac po sition. Cardiac size. Cardiac [...] rmal around both twins. Preeti Bravo MD [facility] US ORDERABLES documented in this encounter Visit Diagnoses Diagnosis Dichorionic diamniotic twin in first trimester Twin , antepartum Multigravida of advanced maternal age in first trimester documented in this encounter Care Teams Manager Shell Relationship Specialty Start Date End Date Preeti Bravo MD Assigned OBGYN Provider 11/11/[address] [place] [address] documented as of this encounter
--- OUTSIDE RECORDS SUMMARY | 2022-01-05 11:50 | XMS_ITS | Encounter Summary ---
:1985 Author Organization [place] Address [address] [place] [address]. [place] [address] Care Team Providers Name Role Phone Unavailable Primary Care Provider Unavailable Encounter Details Date Type Department Care Team Description 10/06/2021 Medical Correspondence [facility] Scan, MATERNAL Health Info Mgmt [facility]-Provider [facility] SERV[facility] [address] [place] [address] [place] [address] [facility] [phone] [place] Social History Tobacco Use Types Packs/Day Years Used Date Smoking Tobacco: Never Assessed Sex Assigned at Date Recorded Not on file documented as of this encounter Plan of Treatment Not on filedocumented as of this encounter Visit Diagnoses Not on filedocumented in this encounter
--- OUTSIDE RECORDS SUMMARY | 2022-01-05 11:50 | XMS_ITS | Encounter Summary ---
:1985 Author Organization [place] Address [address] [place] [address] Care Team Providers Name Role Phone Unavailable Primary Care Provider Unavailable Reason for Referral Consultation (Routine) - Pending Review Specialty Diagnoses / Procedures Referred By Contact Refer red To Contact Diagnoses related condition, antepartum Lizabeth Dinero Maternal [facility] [address] [address] Phone: Fax: Referral ID Status Reason Start Date Expiration Date Visits V isits Requested Authorized [id number] Pending 10/07/2021 10/07/2022 1 1 Review Encounter Details Date Type Department Care Team Description 10/07/2021 Transcribe Orders [facility] Timo Dinero related Maternal [facility] condition, [facility] MEDICAL antepartum (Primary Mala [address] Dx) [address] [place], [place] [address] [address] [place], [place] [phone] [address] (Work) [phone] Social History Tobacco Use Types Packs/Day Years Used Date Smoking Tobacco: Never Assessed Sex Assigned at Date Recorded Not on file documented as of this encounter Plan of Treatment Scheduled Referrals Name Type Priority Associated Diagnoses Order S chedule Mat Med Ctr Referral Routine related Expec dalila: 10/14/2021 Referral - condition, antepartu m (Approximate), Expires: 2022 documented as of this encounter Visit Diagnoses Diagnosis related condition, antepartum - Primary documented in this encounter
--- OUTSIDE RECORDS SUMMARY | 2022-01-05 11:50 | XMS_ITS | Encounter Summary ---
:1985 Author Organization [place] Address [address] [facility] [place] [address] Care Team Providers Name Role Phone Unavailable Primary Care Provider Unavailable Reason for Visit Diagnostic Imaging Ultrasound (Routine) - Pending Review Specialty Diagnoses / Procedures Referred By Contact Refer red To Contact Diagnoses related condition, antepartum Non-Fv Credentialed Procedures MFM Twins Nuchal Trans w/US MFM Twins US OB Complete 1st Tri Provider, Radiology Referral ID Status Reason Start Date Expiration Date Visits V isits Requested Authorized [id number] Pending 10/12/2021 10/12/2022 1 1 Review Encounter Details Date Type Department Care Team Description 11/03/2021 Hospital Encounter [facility] Elle Tomas [address] [place] [address] related Maternal Franklyn Interiano MD [address] [place] [address] condition, Medicine Center Preeti Bravo MD [address] [facility] [address] [facility] [address] [place] [address] antepartum [place] [address] [facility] [address] [place] [address] Social History Tobacco Use Types [...] Priority Date/Time Associated Comments Diagnosis MFM TWINS NUCHAL Routine 11/03/2021 9:43 AM related Results for this TRANSLUCENCY W US CDT condition, procedure are in antepartum the results section. documented in this encounter Results MFM Twins Nuchal Trans w/US (11/03/2021 9:43 AM [...] 11/03/2021 10:25 AM CDT NT Pat. Name: COLLETTE COREA Study Date: 0 11/03/2021 9:03am Pat. NO: [id number] Referring ??MD: ANDRÉS TOMAS Site: [facility] Former: Mabel Nielson RDMS : 1985 Age: 35 [...] Bladde r. Arms. Legs. MATERNAL STRUCTURES Cervix ?Visualized ? [...] Preeti Bravo MD - 11/03/2021 NT Pat. Name:THA COREADomitila Date:10/16 9:03am Pat. NO: [id number] MD:YANELI SERRANO Site:[facility]ographer:CHELA Brandt :1985Age:35 INDICATION Twins- Confirm Chorionicity, Advanced [...] hemorr justen noted in lower placenta. [facility] documented in this encounter Visit Diagnoses Diagnosis related condition, antepartum documented in this encounter
--- OUTSIDE RECORDS SUMMARY | 2022-01-05 11:50 | XMS_ITS | Encounter Summary ---
:1985 Author Organization [place] Address [facility] [place] [address] Care Team Providers Name Role Phone Unavailable Primary Care Provider Unavailable Reason for Visit Reason Comments Genetic Counseling Advanced maternal age- twin Consultation (Routine: Next available opening) - Pending Review Specialty Diagnoses / Procedures Referred By Contact Refer red To Contact Diagnoses related condition, antepartum [place] [address] [place] [address] Referral ID Status Reason Start Date Expiration Date Visits V isits Requested Authorized [id number] Pending 10/12/2021 10/12/2022 1 1 Review Encounter Details Date Type Department Care Team Description 11/03/2021 Office Visit [facility] Tab Dinero [place] [address] [place] [address] Multigravida of advanced maternal age in first trimester (Primary Dx); Maternal RaukFranklyn MD [address] [place], [place] [address] related condition, antepartum; Medicine Center Preeti Bravo MD [address] [facility] [address] [place] [address] Twin Olamide Hoover GC [address] [place] [address] [address] [facility] [address] [place] [address] Social History Tobacco Use Types Packs/Day Years Used Date Smoking Tobacco: Never Assessed Sex Assigned at Date Recorded Not on file COVID-19 Exposure Response Date Recorded In the last 10 days, have you been in contact with No / Unsu re 11/03/2021 7:41 AM CDT someone who was confirmed or suspected to have Coronavirus/COVID-19? documented as of this encounter Progress Notes Olamide Barraza, GC - 11/03/2021 8:00 AM CDT [facility] Genetic Counseling Consult Patient: Collette Corea Date of : 1985 Date of Service: 11/03/21 Collette Corea was seen at [facility] for genetic consultationto discuss the options for screening and testing for chromosome abnormalities. The indication for genetic counseling is advanced maternal age. She has a twin with unknown chorionicity. She was accompanied to the appointment by her mother, Joseline. Impression/Plan: 1. Collette had a genetic counseling session and a first trimester ultrasound. See ultrasound report for details. She declined all genetic testing, including NIPT, CVS, amniocentesis, and carrier screening. 2. Maternal serum AFP (single marker screen) is recommended after 15 weeks to screen for open neuraltube defects. A quad screen should not be performed. 3. An 18-20 week comprehensive ultrasound is standard of care for all women 35 or older at delivery. History: /Parity: Age at Delivery: 36 year old NANCY: 05/23/2022, by Last Menstrual Period Gestational Age: 11w2d ??? No significant complications or exposures were reported in the current . ??? Collette???s history is significant for four prior miscarriages, one of a twin .She also had a son born via section who is now 13. ??? This is her first with this partner. She is with twins, and chorionicity is unknown. Medical History: Collette reports that she has struggled with her mental health, specifically with depression. We discussed how mental illnesses are thought to be inherited in a multifactorial fashion, meaning many factors are involved in the development of this condition. These factors usually include both genetic and environmental aspects and a combination of these aspects lead to the condition. Given that there is a genetic component, the couple's children may be at increased risk to develop a mental illness and were encouraged to share this information with their steam station supervisor and have awareness for early signs andsymptoms. Collette said she used to take medication, but is no longer medicated. We discussed how a past medical history of depression increases the risk someone will experience depression. depression is common and includes symptoms like a depressed mood, overwhelming fatigue, withdrawal, and reduced interest in activities that used to bring enjoyment. There are treatments like medication and therapy which are effective. Collette was encouraged to update her healthcare team if she finds herself struggling with her mental health during or after . Otherwise, Collette???s reported medical history is not expected to impact management or risks to development. Family History: A three-generation pedigree was obtained, and is scanned under the ???Media?? tab. The following significant findings were reported by Collette: ??? Collette has a son (12y) from a previous relationship who is reportedly healthy. ??? Collette's sister (38y) has a history of 3-4 miscarriages. Collette's mother reports that Collette's sister was worked up for her miscarriages at the [facility], and it was determined that it was due to a paternally inherited cause. Collette and her mother had no additional information. They were encouraged to ask Collette's sister for more information and to update us if they learn more. Without knowing the explanation for Collette's sister's losses we cannot provide an accurate risk for Collette's pregnancies. ??? Collette's sister has a son (15y) who was recently diagnosed with postural orthostatic tachycardia syndrome (POTS). This is a condition where the heart rate increases with changes to posture and can lead to dizziness, or fainting. ??? Collette's paternal grandfather was diagnosed with leukemia at 50. They report that this was attributed to Agent [place] exposure. ??? Collette reports that she has limited information about the family medical history for the father of the babies. She reports that he has two daughters (14y, 11y) who are healthy to her knowledge. Otherwise, the reported family history is negative for stillbirths, defects, intellectual disability, cancer <50y, known genetic conditions, and consanguinity. Carrier Screening: The patient reports that she is of ancestry: ?? Cystic fibrosis is an autosomal recessive genetic condition that occurs with increased frequency in individuals of ancestry and carrier screening for this condition is available. In addition, screening in the [facility] includes cystic fibrosis. ?? Expanded carrier screening for mutations in a large panel of genes associated with autosomal recessive conditions including cystic fibrosis, spinal muscular atrophy, and others, is now available. ?? The patient has declined the carrier screening options reviewed today. Risk Assessment for Chromosome Conditions: We explained that the risk for chromosome abnormalities increases with maternal age. We discussed specific features of common chromosome abnormalities, including Down syndrome, trisomy 13, trisomy 18, and sex chromosome trisomies. ??? - At age 36 at delivery, the midtrimester risk to have one or both babies with Down syndrome in a twin is 1 in 106. ??? - At age 36 at delivery, the midtrimester risk to have one or both babies with any chromosome abnormality in a twin is 1 in 56. Testing Options: We discussed the following options: Non-invasive Testing (NIPT) ?? Maternal plasma cell-free DNA testing; first trimester ultrasound with nuchal translucency and nasal bone assessment is recommended, when appropriate ?? Screens for trisomy 21, trisomy 13, trisomy 18, and sex chromosome aneuploidy ?? Cannot screen for open neural tube defects; maternal serum AFP after 15 weeks is recommended Chorionic villus sampling (CVS) ?? Invasive procedure typically performed in the first trimester by which placental villi are obtained for the purpose of chromosome analysis and/or other genetic analysis ?? Diagnostic results; >99% sensitivity for chromosome abnormalities ?? Cannot test for open neural tube defects; maternal serum AFP after 15 weeks is recommended Genetic Amniocentesis ?? Invasive procedure typically performed in the second trimester by which amniotic fluid is obtained for the purpose of chromosome analysis and/or other genetic analysis ?? Diagnostic results; >99% sensitivity for chromosome abnormalities ?? AFAFP measurement tests for open neural tube defects Comprehensive (Level II) ultrasound ?? Detailed ultrasound performed between 18-22 weeks gestation to screen for major defects andmarkers for aneuploidy. Nuchal Translucency (NT) ??? An NT scan is a common screening test that occurs during the first trimester of . This test measures the size of the clear tissue, called the nuchal translucency, at the back of your baby's neck. If this pocket of fluid is larger than expected, it can increase the risk for chromosomal aneuploidy, or heart defects. Collette declined NIPT, CVS, and amniocentesis today. She is aware that they remain available. We reviewed the benefits and limitations of this testing. Screening tests provide a risk assessment specific to the for certain chromosome abnormalities, but cannot definitively diagnose or exclude a chromosome abnormality. Follow-up genetic counseling and consideration of diagnostic testing is recommended with any abnormal screening result. Diagnostic tests carry inherent risks- including risk of miscarriage- that require careful consideration. These tests can detect chromosome abnormalities with greater than 99% certainty. Results can be compromised by maternal cell contamination or mosaicism, and are limited by the resolution of c ytogenetic G-banding technology. There is no screening nor diagnostic test that can detect all formsof defects or mental disability. It was a pleasure to be involved with Collette???s care. Xuev-ij-grvo time of the meeting was 45 minutes. Olamide Barraza MS, [facility] Certified Genetic Counselor [facility] Pager: [phone] Office: [phone] documented in this encounter Plan of Treatment Not on filedocumented as of this encounter Visit Diagnoses Diagnosis Multigravida of advanced maternal age in first trimester - Primary related condition, antepartum Twin Twin , unspecified as to episod e of care documented in this encounter
--- OUTSIDE RECORDS SUMMARY | 2022-01-05 11:50 | XMS_ITS | Encounter Summary ---
:1985 Author Organization [place] Address [address] [place] [address] Care Team Providers Name Role Phone Preeti Bravo MD Unavailable Encounter Details Date Type Department Care Team Description 01/01/2022 Travel Social History Tobacco Use Types Packs/Day Years Used Date Smoking Tobacco: Never Assessed Sex Assigned at Date Recorded Not on file COVID-19 Exposure Response Date Recorded In the last 10 days, have you been in contact with No / Unsu re 01/01/2022 8:32 AM HARBOR BOAT PILOT someone who was confirmed or suspected to have Coronavirus/COVID-19? documented as of this encounter Plan of Treatment Not on filedocumented as of this encounter Visit Diagnoses Not on filedocumented in this encounter Care Teams Machine Programmer Relationship Specialty Start Date End Date Preeti Bravo MD Assigned OBGYN Provider 11/11/[address] [place] [address] [address] [place], [place] [id number] documented as of this encounter
[2022-01-06 11:33] LABS: Beta-2-Microglob Serum/Plasma 1.8 mg/L (0.8-2.4)
[2022-01-06 16:45] LABS: Cardiolipin Antibody IgA <10 APL (<=11); Cardiolipin Antibody IgG <10 GPL (<=14); Cardiolipin Antibody IgM <10 MPL (<=12)
[2022-01-11 01:41] LABS: Prothrombin Time 12.3 sec (12.0-15.5); dRVVT Screen 38 sec (33-44)
== END 2022-01-05 10:30 | disposition home or self-care (01) ==
PROVIDERS: Obstetrics & Gynecology; Visit Provider Obstetrics & Gynecology
DX: O30.042 Twin pregnancy, dichorionic/diamniotic, second trimester (principal); Z3A.20 20 weeks gestation of pregnancy
CPT/HCPCS: 82232; 84443; 85610; 85613; 85730; 86147

== ENCOUNTER 2022-02-02 10:29 | Outpatient (CLI) | payer OTHER, MEDICAID, SELFPAY ==
[2022-02-04 08:42] LABS: Rapid Plasma Reagin (RPR) Non Reactive (Non Reactive)
== END 2022-02-02 10:30 | disposition home or self-care (01) ==
PROVIDERS: Visit Provider Obstetrics & Gynecology
DX: O30.023 Conjoined twin pregnancy, third trimester (principal); Z3A.24 24 weeks gestation of pregnancy
CPT/HCPCS: 76816; 86592

== ENCOUNTER 2022-02-10 10:37 | Outpatient (CLI) | payer OTHER, MEDICAID, SELFPAY ==
[2022-02-10 08:08] LABS: Glucose Fasting Check 86 mg/dl (60-115)
[2022-02-10 12:55] LABS: Glucose GTT-Gestational 3 Hr 92 mg/dl (70-140)
[2022-02-10 12:55] LABS: Glucose 1 Hour Gest 159 mg/dl (70-180)
== END 2022-02-10 10:38 | disposition home or self-care (01) ==
PROVIDERS: Visit Provider Obstetrics & Gynecology
DX: Z34.90 Encounter for supervision of normal pregnancy, unspecified, unspecified trimester (principal)
CPT/HCPCS: 82951; 82952

== ENCOUNTER 2022-03-02 08:24 | Outpatient (CLI) | payer MEDICAID, SELFPAY ==
--- NOTE | 2022-03-02 08:15 | CRLHL7_ITS ---
For Patients: As a result of the Century Cures Act, medical imaging exams and procedure reports are released immediately into your electronic medical record. You may view this report before your referring provider. If you have questions, please contact your health care provider. 3rd TRIMESTER TWIN GROWTH INDICATION: Third trimester scan, evaluate growth in a twin gestation. COMPARISON: 02/02/2022 TECHNIQUE: Real-time grayscale imaging of the twins was performed as well as color Doppler and spectral Doppler analysis of the umbilical arteries. FINDINGS: Sonographic imaging demonstrates a living twin intrauterine gestation. Twin A demonstrates a regular cardiac rate of 146 beats per minute. Twin A has a maternal left vertex position. The placenta lies anterior. Amniotic fluid volume appears normal and the largest fluid pocket measures 5.1 cm. The estimated weight is 1311 gm which lies at the 63rd percentile. BPD 62nd percentile. HC 60th percentile. AC 67th percentile. FL 43rd percentile. The HC/AC ratio measures 1.09 range (0.99-1.21). Twin B demonstrates a regular cardiac rate of 148 beats per minute. Twin B has a maternal right in vertex position. The placenta lies posterior. Amniotic fluid volume appears normal and the largest fluid pocket measures 4.5 cm. The estimated weight is 1290 gm which lies at the 58th percentile. BPD 75th percentile. HC 73rd present. AC 80th percentile. FL 10th percentile. The HC/AC ratio measures 1.08 range (0.99-1.21). IMPRESSION: Twin A: Sonographic gestational age 29 weeks 1 day and sonographic due date 05/17/2022. Sonographic age is 6 days ahead of the clinical age. Estimated weight 63rd percentile. Abdominal circumference 67th percentile. Twin B: Sonographic gestational age 29 weeks 0 days and sonographic due date of 05/18/2022. Sonographic age is 5 days ahead of the clinical age. Estimated weight 58th percentile. Abdominal circumference 80th percentile. Dictated by Jayro Addison MD @ 03/02/2022 10:16:51 AM (Electronically Signed)
== END 2022-03-02 08:25 | disposition home or self-care (01) ==
PROVIDERS: Visit Provider Obstetrics & Gynecology
DX: O30.043 Twin pregnancy, dichorionic/diamniotic, third trimester (principal); Z3A.28 28 weeks gestation of pregnancy
CPT/HCPCS: 76816

== ENCOUNTER 2022-03-30 08:58 | Outpatient (CLI) | payer OTHER, SELFPAY ==
--- NOTE | 2022-03-30 09:15 | CRLHL7_ITS ---
For Patients: As a result of the Cures Act, medical imaging exams and procedure reports are released immediately into your electronic medical record. You may view this report before your referring provider. If you have questions, please contact your health care provider. 3rd TRIMESTER TWIN GROWTH INDICATION: Third trimester scan, evaluate growth in a twin gestation. COMPARISON: 03/02/2022 TECHNIQUE: Real-time grayscale imaging of the twins was performed. FINDINGS: Sonographic imaging demonstrates a living twin intrauterine gestation. Twin A demonstrates a regular cardiac rate of 150 beats per minute. Twin A has a maternal left vertex position. The placenta lies anterior. Amniotic fluid volume appears normal and the largest fluid pocket measures 2.7 cm. The estimated weight is 1843 gm which lies at the 25th percentile. BPD 87th percentile. HC 51st percentile. AC 17th percentile. FL 26th percentile. The HC/AC ratio measures 1.12 range (0.96-1.12). Sonographic gestational age 32 weeks 5 days and sonographic due date 05/20/2022. Twin B demonstrates a regular cardiac rate of 143 beats per minute. Twin B has a maternal right vertex position. The placenta lies posterior. Amniotic fluid volume appears normal and the largest fluid pocket measures 3.7 cm. The estimated weight is 1975 gm which lies at the 44th percentile. BPD 85th percentile. HC 57th percentile. AC 41st percentile. FL 37th percentile. The HC/AC ratio measures 1.09 range (0.96-1.11). Sonographic gestational age 33 weeks 0 days and sonographic due date 05/18/2022. IMPRESSION: Appropriate interval growth of the twins. Dictated by Jayro Addison MD @ 03/30/2022 10:55:23 AM (Electronically Signed)
== END 2022-03-30 08:59 | disposition home or self-care (01) ==
LOC: US 08:58
PROVIDERS: Visit Provider Obstetrics & Gynecology
DX: O30.003 Twin pregnancy, unspecified number of placenta and unspecified number of amniotic sacs, third trimester (principal)
CPT/HCPCS: 76816

== ENCOUNTER 2022-04-02 15:40 | Outpatient (CLI) | payer OTHER, SELFPAY ==
[2022-04-02 15:28] VITALS: BP 126/72; PULSE 78; RESP 12; TEMP 36.1; O2SAT 100; BMI 38.2
[2022-04-02 16:02] VITALS: BP 96/55; PULSE 65; RESP 18; TEMP 36.6
[2022-04-02] MEDS: PANTOPRAZOLE SODIUM 40 MG INJ IVP (16:56)
[2022-04-02] MEDS: CALCIUM CARBONATE 500 MG CHEW PO (16:56)
[2022-04-02] MEDS: LACTATED RINGERS 1000 ML 1,000 ML IV (16:56)
[2022-04-02] MEDS: ONDANSETRON 2 MG/ML inj 4 MG IVP (16:56)
[2022-04-02] MEDS: GI COCKTAIL (VISC LIDO/ANTACID) 30 ML PO (18:05)
--- NOTE | 2022-04-02 18:34 | W.PM.OBO ---
OB Outpatient HPI History of Present Illness History of Present Illness: 36 year old -0-4-1 woman at 32 5/7 weeks gestation in di-di twin presents with chief complaint of severe epigastric pain. She reported having a [place]isian food last night, subsequently developing nausea, vomiting, and belly pain today. She has had no fevers. Bleeding: No Contractions: No Other comments: OB Problem List: Repeat delivery with bilateral salpingectomy 05/10/[address] Mann. Specific Issues/Plans 1. conceived with the Mirena IUD.? IUD was removed 09/15/2021.? 2. Di/Di twin gestation 81 mg of aspirin starting at 12 weeks MFM consult and genetics consult: 01/01/22 [] Reportedly normal, records pending 11/03/2021:? Confirmed Di/Di twins, normal nuchal translucency for both twins and nasal bone visualized in both twins. Recommendations: Level 2 ultrasound at 18-20 week:? Normal anatomy, inter twin discordance is within normal limits, normal amniotic fluid Serial growth ultrasounds every 4 weeks 24 weeks.? Twin A, maternal left:? Cephalic, SDP 4.1, EFW 18%, AC 12%.? Twin B, maternal right:? Cephalic, SDP 4.6, EFW 46%, AC 41%.? Discordance 10.5%. 28 weeks. ? Twin A, maternal left:? EFW 63%, all growth parameters within normal ranges, cephalic, SDP 5.1 cm.? Twin B, maternal right:? EFW 58%, all growth parameters within normal ranges.? Cephalic, SDP 5 cm.? 32 weeks.? Twin A, maternal left:? Cephalic, SDP 2.7 cm, EFW 25% with all growth parameters within normal ranges, 1843 g.? Twin B, maternal right:? Cephalic, SDP 3.7 cm, EFW 1975 g = 44%, with all growth parameters within normal ranges. testing weekly starting at 36 weeks Recommend delivery at 38-38 6/7 if otherwise undelivered? 3. AMA Level 2 ultrasound: Declined genetic screening at this time, will consult with Genetics:? Consulted with genetics 11/03/21: declined screening 4. History recurrent loss, 4 No evaluation for recurrent loss *May need antiphospholipid antibody testing: Ordered on 12/08/21 5. Asthma Rare albuterol use 6. History of , postdates induction secondary arrest of dilation and descent Desires repeat as early as possible in Scheduled for Tuesday05/10/[address] Mann = 38 1/7 weeks.? 7.? Desires sterilization.? Tubal consent forms signed 03/02/22. 7. History of macrosomia, 10 lb 5 oz Given this and twin , early 1 hr GTT at 24 weeks.? 8. History of genital herpes Begin Valtrex 500 mg BID at 36 weeks.? 9. History of cervical dysplasia for years, with 2-3 colposcopies.? No LEEPs Pap 10/06/2021: LSIL / HPV +, non 16 or 18 Colposcopy 11/10/21:? No obvious dysplasia Repeat pap with HPV testing . 10. Migraines 11. History of depression, doing well without treatment 12.? BMI 36.6 at NOB 13.? Early 1 hr GCT elevated at 24 weeks.? 3 hr GTT with 1/4 values elevated; no diabetes.? Repeat 3 hr GTT in 3rd trimester:? 1/4 values elevated, no diabetes.? 14.? Anemia, with Hb 10.9 at 28 weeks.? Intolerant of iron pills.? Prescription sent for liquid iron QOD.? Consider IV iron if unable to tolerate. Meds Home Medications and Allergies Home Medications Medication Instructions Recorded Confirmed Type docosahexaenoic acid 200 mg mg PO 11/10/21 03/30/22 History capsule ( DHA) cetirizine 10 mg capsule (Zyrtec) 10 mg PO QDAY PRN 03/16/22 03/30/22 History Allergies Allergy/AdvReac Type Severity Reaction Status Date / Time chicken derived Allergy Intermediate Hives Verified 03/30/22 09:59 pork/porcine Allergy Mild Hives Uncoded 03/30/22 09:59 productderivatives,chicken derived. [facility] Medical History (Updated 04/02/22 @ 18:38 by Lana Claros MD) Cervical dysplasia Encounter for initial prescription of contraceptive pills History of herpes genitalis History of oral contraceptive use History of recurrent miscarriages Hyperlipidemia Major depressive disorder Migraine with aura Obesity Positive test for human papillomavirus (HPV) (2019) Recurrent loss Seasonal allergic rhinitis Surgical History (Updated 03/02/22 @ 19:25 by Lana Claros MD) History of appendectomy History of section (2008) History of colposcopy with cervical biopsy Family History Maternal Grandmother Breast cancer, Onset Age: 65 Diabetes DVT (deep venous thrombosis) High cholesterol Pancreatic cancer Family/Other Breast cancer High blood pressure Thyroid disease Sister High cholesterol PCOS (polycystic ovarian syndrome) Paternal Grandfather Leukemia Other Miscarriage Social History (Updated 09/25/21 @ 10:08 by Christina Callahan) Narrative: Drinks alcohol History of tobacco use Tattoos Smoking Status: Former smoker Little interest or pleasure in doing things: not at all Feeling down, depressed, or hopeless: not at all History History 6 Elective abortions Para 1 Spontaneous abortions 4 Hx # Term Pregnancies 1 Ectopic pregnancies Hx # Pregnancies Multiple births Number of Living Children 1 Past Pregnancies Del. Date GA/Weeks Outcome Route wt Inf Gender Labor Lgth Anesthesia Location Provider [facility] 11/27/08 41 live - full term low transverse 10 lb 5 oz Male epidural [facility] - [facility]: Exam Physical Exam Vital signs: Temp Pulse Resp BP Pulse Ox O2 Del Method 98 F 65 18 96/55 L 100 04/02/22 16:02 04/02/22 16:02 04/02/22 16:02 04/02/22 16:02 04/02/22 15:28 04/02/22 15:28 Narrative: NST reactive, reassuring for both twins Constitutional Constitutional: no acute distress Assessment and Plan Assessment and plan (1) Viral gastroenteritis: Problem comment: with nausea, vomiting and epigastric pain Status: Acute Assessment and Plan: She was treated with GI cocktail, Zofran, IV hydration, and finally with morphine 2 mg IV. I suspect that symptoms will pass within the day. (2) Dichorionic diamniotic twin gestation: Status: Acute Assessment and Plan: Follow up in clinic as scheduled.
== END 2022-04-02 18:35 | disposition home or self-care (01) ==
LOC: OB OUT 15:42 → OB 15:42
PROVIDERS: Visit Provider Obstetrics & Gynecology
DX: O30.043 Twin pregnancy, dichorionic/diamniotic, third trimester (principal); Z3A.33 33 weeks gestation of pregnancy
CPT/HCPCS: 59025; 99213; A9270; C9113; J2405; J7120

== ENCOUNTER 2022-04-04 13:10 | Outpatient (CLI) | payer OTHER, SELFPAY ==
[2022-04-04] VITALS (7 sets, daily range): BP systolic 117–120; BP diastolic 56–62; PULSE 64–137; RESP 16; TEMP 36.8–37.1; O2SAT 85–97
[2022-04-04 14:08] LABS: Amnisure Rom* Negative
--- NOTE | 2022-04-04 14:18 | CRLHL7_ITS ---
For Patients: As a result of the Century Cures Act, medical imaging exams and procedure reports are released immediately into your electronic medical record. You may view this report before your referring provider. If you have questions, please contact your health care provider. INDICATION: Abdominal pain COMPARISON: 03/1922 TECHNIQUE: Real time moncada scale imaging of both fetuses was performed. Without non-stress testing. FINDINGS: Sonographic imaging demonstrates a twin living diamniotic dichorionic intrauterine gestation. Twin A: Fetus demonstrates a regular cardiac rate of 147 beats per minute. Fetus has a maternal left vertex position. The amniotic fluid volume appears normal and there is a single deepest pocket measurement of 3.6 cm. The fetus was active and without normal breathing movements. There was normal flexion and extension of the trunk and extremities. Twin B: Fetus demonstrates a regular cardiac rate of 139 beats per minute. Fetus has a maternal right vertex position. The amniotic fluid volume appears normal and there is a single deepest pocket measurement of 5.2 cm. The fetus was active and without normal breathing movements. There was normal flexion and extension of the trunk and extremities. IMPRESSION: Twin A: Biophysical profile 6/8 with absent respiratory activity. Twin B: Biophysical profile 6/8 with absent respiratory activity. Dictated by Jayro Addison MD @ 04/04/2022 4:48:04 PM (Electronically Signed)
--- NOTE | 2022-04-04 14:24 | CRLHL7_ITS ---
For Patients: As a result of the Century Cures Act, medical imaging exams and procedure reports are released immediately into your electronic medical record. You may view this report before your referring provider. If you have questions, please contact your health care provider. INDICATION: Abdominal pain. TECHNIQUE: Ultrasound abdomen limited. Sonographic images of the right upper quadrant were obtained using moncada-scale and color Doppler images. COMPARISON: None FINDINGS: Liver: Normal in size and echotexture. No masses. No intrahepatic biliary dilatation. The main portal vein demonstrates hepatopetal flow. Gallbladder: Shadowing stones and layering sludge. Normal wall thickness. No pericholecystic fluid. Positive sonographic Dunbar`s sign. Common bile duct: The common duct is prominent measuring 9 mm in diameter. Pancreas: Not well visualized due to overlying bowel gas. Right kidney: Measures 10.6 x 5.6 x 5.6 cm. Normal echotexture and cortex. No masses, stones, or hydronephrosis. Vasculature: Visualized proximal abdominal aorta and IVC are normal. IMPRESSION: 1. Cholelithiasis and layering sludge. Positive sonographic Dunbar sign. Findings are suspicious for acute cholecystitis. 2. The common duct is prominent measuring 9 mm in diameter. No common duct stone was visualized. Dictated by Chapis Pablo MD @ 04/04/2022 4:46:01 PM (Electronically Signed)
[2022-04-04] MEDS: LACTATED RINGERS 1000 ML 1,000 ML IV ×2 (14:33→16:45)
[2022-04-04] MEDS: FAMOTIDINE 10 MG/ML inj 20 MG IVP (14:39)
[2022-04-04] MEDS: ONDANSETRON 2 MG/ML inj 4 MG IVP (14:46)
[2022-04-04] MEDS: MORPHINE 2 MG/ML inj IVP ×2 (14:47→16:47)
[2022-04-04 15:08] LABS: Basophils Absolute Auto 0.04 K/uL (0.00-0.30); Basophils Percent Auto 0.6 % (0.0-3.0); Eosinophils Absolute Auto 0.06 K/uL (0.00-0.50); Eosinophils Percent Auto 0.9 % (0.0-7.0); Hematocrit 34.2 % (33.0-51.0); Hemoglobin* 11.1 gm/dL (12.0-16.0); Immature Granulocytes Abs Auto 0.08 K/uL (0.00-0.30); Immature Granulocytes Pct Auto 1.2 %; Lymphocytes Percent Auto 14.5 % (20-44); Mean Corpuscular HGB Conc 33 gm/dL (32-36); Mean Corpuscular Hemoglobin 28 pg (26-34); Mean Corpuscular Volume 86 fL (80-100); Monocytes Percent Auto 8.8 % (0.0-11.0); Platelet Count* 194 K/uL (140-440); RDW Coefficient of Variation % 13.9 % (11.5-15.5); Red Blood Count 3.97 m/uL (4.00-5.20); White Blood Count* 6.78 K/uL (4.50-11.00)
[2022-04-04 15:10] LABS: Slide Review Reflex No
[2022-04-04 15:28] LABS: Albumin* 3.6 g/dL (3.3-5.0); Chloride* 107 mmol/L (96-114)
[2022-04-04 15:29] LABS: Potassium* 3.9 mmol/L (3.6-5.1); Sodium* 134 mmol/L (135-149)
[2022-04-04 15:31] LABS: Alkaline Phosphatase* 278 U/L (40-150); Amylase* 101 U/L (18-89); Aspartate Amino Transferase* 62 U/L (12-35); Bilirubin Direct* 2.2 mg/dL (0.0-0.5); Blood Urea Nitrogen* 6 mg/dL (5-24); Carbon Dioxide* 21 mmol/L (20-32); Creatinine* 0.7 mg/dL (0.5-1.5); Estimated Glomerular Filt Rate 115 ml/min; Glucose* 92 mg/dL (60-115); Total Protein* 6.9 g/dL (6.0-8.3)
[2022-04-04 15:32] LABS: Alanine Aminotransferase* 85 U/L (4-35); Calcium* 8.6 mg/dL (8.4-10.6); Lipase* 251 U/L (23-300)
[2022-04-04 16:06] LABS: INR 0.92 (0.91-1.10)
[2022-04-04 16:07] LABS: Fibrinogen* 516 mg/dL (200-450)
[2022-04-04 16:36] LABS: Appearance Urine Clear (Clear); Bilirubin Urine 2+ (Negative); Blood Urine Negative (Negative); Color Urine Orange (Yellow); Glucose Urine Negative (Negative); Ketones Urine 4+ (Negative); Leukocyte Esterase Urine Negative (Negative); Nitrite Urine Negative (Negative); Protein Urine 1+ (Negative)
--- NOTE | 2022-04-04 16:40 | W.PM.OBO ---
OB Outpatient HPI History of Present Illness Time Seen by Provider: 16:40 Date Seen: 04/04/22 History of Present Illness: 36 year old with Di/Di twin at 33 0/7 weeks gestation by LMP, NANCY 05/23/22 , presents with worsening abdominal pain. Patient was seen on Tuesday04/02/22 with complaints of nausea, vomiting and abdominal pain. Patient stated that she had eaten austrian food and symptoms started after that, her son also had similar symptoms. Patient was given IV hydration, GI cocktail and symptoms improved and she was discharged home. Patient states that she vomited again that same night but was able to fall asleep. Tuesday morning woke up and felt much better, she did try drinking fluids but then again started with abdominal pain, vomiting that has been worsening and she decided to come in for re evaluation. Patient states that pain is localized to her upper midline abdomen, today also felt like it radiated towards her upper back. Patient tried to eat toast this morning at 10:30am but vomited again. She denies fever, states to have been feeling chills. She has been dealing with constipation throughout , has not worsened, denied dysuria, urgency or frequency. Patient states that since she has been vomiting so much she has felt some episodes of a watery like discharge, but unsure if it is urine. Patient has had appendectomy in the past. Vital signs show normal blood pressure, no history of elevated blood pressures during this , no headaches or visual changes. Today, we completed lab work and abdominal imaging that showed findings consistent/worrisome for acute cholecystitis, dilated common bile duct, lab work findings concerning for obstructing gallstone. Aminisure completed found negative, imaging showing normal amniotic fluid for both fetuses. Abdominal ultrasound results: Impression: Cholelithiasis and layering sludge. Positive sonographic Dunbar sign. Findings are suspicious for acute cholecystitis. The common duct is prominent measuring 9 mm in diameter. No common duct stone was visualized. OB pelvis ultrasound: Fetus a: Heart rate 147 beats per minute. Vertex presentation. Single deepest pocket of amniotic fluid 3.6 cm. BPP 6/8. Absent respiratory activity. NSTA: 125bpm/positive accelerations/negative decelerations/moderate variability NSTB: 130bpm/positive accelerations/negative decelerations/moderate variability Sporadic asymptomatic uterine contractions Lab work results: White blood cell count: 6.78, hemoglobin 11.1, platelets [id number]. Sodium: 134, BUN: 6, creatinine: 0.7, glucose: 92, AST: 62, ALT: 85. Total bilirubin: 3.0, direct bilirubin: 2.2. Amylase: 101, lipase: 251. Urinalysis ketones 4+, protein +1, bili +2. Specific Issues/Plans 1. conceived with the Mirena IUD.? IUD was removed 09/15/2021.? 2. Di/Di twin gestation 81 mg of aspirin starting at 12 weeks MFM consult and genetics consult: 01/01/22 Reportedly normal, records pending 11/03/2021:? Confirmed Di/Di twins, normal nuchal translucency for both twins and nasal bone visualized in both twins. Recommendations: Level 2 ultrasound at 18-20 week:? Normal anatomy, inter twin discordance is within normal limits, normal amniotic fluid Serial growth ultrasounds every 4 weeks 24 weeks.? Twin A, maternal left:? Cephalic, SDP 4.1, EFW 18%, AC 12%.? Twin B, maternal right:? Cephalic, SDP 4.6, EFW 46%, AC 41%.? Discordance 10.5%. 28 weeks. ? Twin A, maternal left:? EFW 63%, all growth parameters within normal ranges, cephalic, SDP 5.1 cm.? Twin B, maternal right:? EFW 58%, all growth parameters within normal ranges.? Cephalic, SDP 5 cm.? 32 weeks.? Twin A, maternal left:? Cephalic, SDP 2.7 cm, EFW 25% with all growth parameters within normal ranges, 1843 g.? Twin B, maternal right:? Cephalic, SDP 3.7 cm, EFW 1975 g = 44%, with all growth parameters within normal ranges. testing weekly starting at 36 weeks Recommend delivery at 38-38 6/7 if otherwise undelivered? 3. AMA Level 2 ultrasound: Declined genetic screening at this time, will consult with Genetics:? Consulted with genetics 11/03/21: declined screening 4. History recurrent loss, 4 No evaluation for recurrent loss *May need antiphospholipid antibody testing: Ordered on 12/08/21 5. Asthma Rare albuterol use 6. History of , postdates induction secondary arrest of dilation and descent Desires repeat as early as possible in Scheduled for Tuesday05/10/[address] Mann = 38 1/7 weeks.? 7.? Desires sterilization.? Tubal consent forms signed 03/02/22. 7. History of macrosomia, 10 lb 5 oz Given this and twin , early 1 hr GTT at 24 weeks.? 8. History of genital herpes Begin Valtrex 500 mg BID at 36 weeks.? 9. History of cervical dysplasia for years, with 2-3 colposcopies.? No LEEPs Pap 10/06/2021: LSIL / HPV +, non 16 or 18 Colposcopy 11/10/21:? No obvious dysplasia Repeat pap with HPV testing . 10. Migraines 11. History of depression, doing well without treatment 12.? BMI 36.6 at NOB 13.? Early 1 hr GCT elevated at 24 weeks.? 3 hr GTT with 1/4 values elevated; no diabetes.? Repeat 3 hr GTT in 3rd trimester:? 1/4 values elevated, no diabetes.? 14.? Anemia, with Hb 10.9 at 28 weeks.? Intolerant of iron pills.? Prescription sent for liquid iron QOD.? Consider IV iron if unable to tolerate. Tdap 03/16/22 Baby moving naturally: Yes Bleeding: No Contractions: No Leaking fluid: No Discharge: No Heartburn: No Back pain: Yes Meds Home Medications and Allergies Home Medications Medication Instructions Recorded Confirmed Type docosahexaenoic acid 200 mg mg PO 11/10/21 03/30/22 History capsule ( DHA) cetirizine 10 mg capsule (Zyrtec) 10 mg PO QDAY PRN 03/16/22 04/04/22 History Allergies Allergy/AdvReac Type Severity Reaction Status Date / Time chicken derived Allergy Intermediate Hives Verified 03/30/22 09:59 pork/porcine Allergy Mild Hives Uncoded 03/30/22 09:59 productderivatives,chicken derived. [facility] Medical History (Updated 04/04/22 @ 17:29 by Mercedes Arrington MD) Cervical dysplasia Encounter for initial prescription of contraceptive pills History of herpes genitalis History of oral contraceptive use History of recurrent miscarriages Hyperlipidemia Major depressive disorder Migraine with aura Obesity Positive test for human papillomavirus (HPV) (2019) Recurrent loss Seasonal allergic rhinitis Surgical History (Updated 03/02/22 @ 19:25 by Lana Claros MD) History of appendectomy History of section (2008) History of colposcopy with cervical biopsy Family History Maternal Grandmother Breast cancer, Onset Age: 65 Diabetes DVT (deep venous thrombosis) High cholesterol Pancreatic cancer Family/Other Breast cancer High blood pressure Thyroid disease Sister High cholesterol PCOS (polycystic ovarian syndrome) Paternal Grandfather Leukemia Other Miscarriage Social History (Updated 09/25/21 @ 10:08 by Christina Callahan) Narrative: Drinks alcohol History of tobacco use Tattoos Smoking Status: Former smoker Little interest or pleasure in doing things: not at all Feeling down, depressed, or hopeless: not at all History History 6 Elective abortions Para 1 Spontaneous abortions 4 Hx # Term Pregnancies 1 Ectopic pregnancies Hx # Pregnancies Multiple births Number of Living Children 0 Past Pregnancies Del. Date GA/Weeks Outcome Route wt Inf Gender Labor Lgth Anesthesia Location Provider [facility] 11/27/08 41 live - full term low transverse 4.678 kg Male epidural [facility] - [facility]: Exam Physical Exam Vital signs: Temp Pulse Resp BP Pulse Ox 98.2 F 71 16 117/62 97 04/04/22 13:29 04/04/22 13:31 04/04/22 13:29 04/04/22 13:31 04/04/22 13:27 Narrative: VITAL SIGNS: As noted above. GENERAL APPEARANCE: Alert, cooperative female in pain. MOOD & AFFECT: Normal. ABDOMEN: Gravid, tender to palpation at the epigastrium, positive Dunbar's sign. Bowel sounds diminished. No uterine tenderness. : No abnormal vaginal discharge. EXTREMITIES: Nonedematous. Well perfused. Nontender. Labs Labs Laboratory Tests 04/04/22 04/04/22 04/04/22 Range/Units 16:30 14:56 14:47 WBC 6.78 (4.50-11.00) K/uL RBC 3.97 L (4.00-5.20) m/uL Hgb 11.1 L (12.0-16.0) gm/dL Hct 34.2 (33.0-51.0) % MCV 86 (80-100) fL MCH 28 (26-34) pg MCHC 33 (32-36) gm/dL RDW Coeff of Scott 13.9 (11.5-15.5) % Plt Count 194 (140-440) K/uL Neut % (Auto) 74.0 H (42.0-72.0) % Lymph % (Auto) 14.5 L (20-44) % Greenlee % (Auto) 8.8 (0.0-11.0) % Eos % (Auto) 0.9 (0.0-7.0) % Baso % (Auto) 0.6 (0.0-3.0) % Neut # (Auto) 5.00 (1.7-7.0) K/uL Lymph # (Auto) 1.00 (0.90-2.90) K/uL Greenlee # (Auto) 0.60 (0.00-0.90) K/UL Eos # (Auto) 0.06 (0.00-0.50) K/uL Baso # (Auto) 0.04 (0.00-0.30) K/uL INR 0.92 (0.91-1.10) Fibrinogen 516 H (200-450) mg/dL Sodium (135-149) mmol/L Potassium (3.6-5.1) mmol/L Chloride (96-114) mmol/L Carbon Dioxide (20-32) mmol/L BUN (5-24) mg/dL Creatinine (0.5-1.5) mg/dL Estimated GFR ml/min Glucose (60-115) mg/dL Calcium (8.4-10.6) mg/dL Total Bilirubin (0.1-1.5) mg/dL Direct Bilirubin (0.0-0.5) mg/dL AST (12-35) U/L ALT (4-35) U/L Alkaline Phosphatase (40-150) U/L Total Protein (6.0-8.3) g/dL Albumin (3.3-5.0) g/dL Amylase (18-89) U/L Lipase (23-300) U/L Urine Color Pending Urine Appearance Pending Urine pH Pending Ur Specific [place] Pending Urine Protein Pending Urine Glucose (UA) Pending Urine Ketones Pending Urine Blood Pending Urine Nitrite Pending Urine Bilirubin Pending Urine Urobilinogen Pending Ur Leukocyte Esterase Pending Membrane Rupture 04/04/22 04/04/22 Range/Units 14:47 13:44 WBC (4.50-11.00) K/uL RBC (4.00-5.20) m/uL Hgb (12.0-16.0) gm/dL Hct (33.0-51.0) % MCV (80-100) fL MCH (26-34) pg MCHC (32-36) gm/dL RDW Coeff of Scott (11.5-15.5) % Plt Count (140-440) K/uL Neut % (Auto) (42.0-72.0) % Lymph % (Auto) (20-44) % Greenlee % (Auto) (0.0-11.0) % Eos % (Auto) (0.0-7.0) % Baso % (Auto) (0.0-3.0) % Neut # (Auto) (1.7-7.0) K/uL Lymph # (Auto) (0.90-2.90) K/uL Greenlee # (Auto) (0.00-0.90) K/UL Eos # (Auto) (0.00-0.50) K/uL Baso # (Auto) (0.00-0.30) K/uL INR (0.91-1.10) Fibrinogen (200-450) mg/dL Sodium 134 L (135-149) mmol/L Potassium 3.9 (3.6-5.1) mmol/L Chloride 107 (96-114) mmol/L Carbon Dioxide 21 (20-32) mmol/L BUN 6 (5-24) mg/dL Creatinine 0.7 (0.5-1.5) mg/dL Estimated GFR 115 ml/min Glucose 92 (60-115) mg/dL Calcium 8.6 (8.4-10.6) mg/dL Total Bilirubin 3.0 H (0.1-1.5) mg/dL Direct Bilirubin 2.2 H (0.0-0.5) mg/dL AST 62 H (12-35) U/L ALT 85 H (4-35) U/L Alkaline Phosphatase 278 H (40-150) U/L Total Protein 6.9 (6.0-8.3) g/dL Albumin 3.6 (3.3-5.0) g/dL Amylase 101 H (18-89) U/L Lipase 251 (23-300) U/L Urine Color Urine Appearance Urine pH Ur Specific [place] Urine Protein Urine Glucose (UA) Urine Ketones Urine Blood Urine Nitrite Urine Bilirubin Urine Urobilinogen Ur Leukocyte Esterase Membrane Rupture Negative Assessment and Plan Assessment and plan (1) Acute cholecystitis: Status: Acute (2) Dichorionic diamniotic twin gestation: Status: Acute Plan 36 y/o with Dichorionic twin at 33 0/7 weeks presenting with worsening abdominal pain. Imaging with findings consistent with acute cholecystitis, possible dilation of the CBD. Lab work showing mild transaminitis, elevated bilirubin, normal lipase. Patient has received IV hydration and pain management and has remained NPO during evaluation today. Discussed findings with patient and mother and recommended admission to hospital setting, recommended transfer of care for inpatient GI consult and availability of additional consultants (surgery, infectious disease, ICU) if needed in case of complications like gallstone pancreatitis, cholangitis, sepsis etc... Patient was in agreement with this plan. Obstetrics patton patient stable. No concerns at this moment for labor, PPROM. Imaging performed today as well as continuos monitoring has been reassuring. Called [facility] and spoke with provider extrusion process operator Dr. England who accepted case. Patient will be transferred via ambulance.
[2022-04-04 16:51] LABS: Bacteria Urine Few; RBC Urine 0-2 (0-2); Squamous Epithelial Cell Urine Few (None-Few); WBC Urine 0-2 (0-5)
[2022-04-04] MEDS: LACTATED RINGERS 1000 ML 1,000 ML 125 ML IV (18:18)
[2022-04-04] MEDS: PIPERACILLIN/TAZOBACTAM 3.375 GM in 0.9 % SODIUM CHLORIDE Mini-bag 100 ML IVPB (18:36)
--- NOTE | 2022-04-04 19:31 | PC.OBNST ---
The provider's electronic signature indicates the NST is reactive/appropriate for gestational age. *Note to provider: If an addendum is required, open the patient's chart and click on the note under the Nurse/Allied Health tab.
== END 2022-04-04 18:58 | disposition other institution (70) ==
LOC: OB OUT 13:11 → OB 13:11
PROVIDERS: Visit Provider Obstetrics & Gynecology
DX: O30.049 Twin pregnancy, dichorionic/diamniotic, unspecified trimester (principal)
CPT/HCPCS: 36415; 59025; 76705; 76819; 80053; 80076; 81003; 81015; 82150; 83690; 84112; 85025; 85384; 85610; 87086; 99213; J2270; J2405; J2543; J7120; S0028

== ENCOUNTER 2022-04-04 18:52 | Outpatient (CLI) | payer OTHER, SELFPAY | END 2022-04-04 18:53 | disposition home or self-care (01) | PROVIDERS: Visit Provider Family Medicine | DX: O99.613 Diseases of the digestive system complicating pregnancy, third trimester (principal); K80.20 Calculus of gallbladder without cholecystitis without obstruction; Z3A.33 33 weeks gestation of pregnancy | CPT/HCPCS: A0425; A0434 ==

== ENCOUNTER 2022-04-13 15:15 | Outpatient (CLI) | payer OTHER, SELFPAY ==
[2022-04-13 17:41] LABS: Bilirubin Total* 0.8 mg/dL (0.1-1.5)
[2022-04-13 17:42] LABS: Alanine Aminotransferase* 49 U/L (4-35); Aspartate Amino Transferase* 22 U/L (12-35)
== END 2022-04-13 15:16 | disposition home or self-care (01) ==
PROVIDERS: Visit Provider Obstetrics & Gynecology
DX: O30.043 Twin pregnancy, dichorionic/diamniotic, third trimester (principal); Z3A.34 34 weeks gestation of pregnancy
CPT/HCPCS: 82247; 84450; 84460

== ENCOUNTER 2022-04-27 08:47 | Outpatient (CLI) | payer OTHER, SELFPAY ==
--- NOTE | 2022-04-27 08:45 | CRLHL7_ITS ---
For Patients: As a result of the Cures Act, medical imaging exams and procedure reports are released immediately into your electronic medical record. You may view this report before your referring provider. If you have questions, please contact your health care provider. INDICATION: [place] Twins BPP and Growth TECHNIQUE: Real time moncada scale imaging of the fetus was performed. COMPARISON: 03/30/2022, 04/04/2022 FINDINGS: Sonographic imaging demonstrates a twin intrauterine gestation. TWIN A: Fetus demonstrates a regular cardiac rate of 142 beats per minute. Fetus has a left vertex position. The placenta lies anterior. Amniotic fluid volume appears normal and there is a single deepest pocket of 2.4 cm. The estimated weight is 2606gm which lies at the 23rd %. On the prior OB ultrasound dated 03/30/2022 the estimated weight was at the 25th percentile. BPD 81st percentile. HC 35th percentile. AC 13th percentile. FL 19th percentile. The fetus was active and demonstrated normal breathing movements. There was normal flexion and extension of the trunk and extremities. TWIN B: Fetus demonstrates a regular cardiac rate of 141 beats per minute. Fetus has a right vertex position. The placenta lies anteriorly. Amniotic fluid volume appears normal and there is a single deepest pocket of 3.1 cm. The estimated weight is 2659gm which lies at the 28th %. On the prior OB ultrasound dated 03/30/2022 the estimated weight was at the 44th percentile. BPD 91st percentile. HC 58th percentile. AC 21st percentile. FL 9th percentile. The fetus was active and there is absent breathing movements. There was normal flexion and extension of the trunk and extremities. IMPRESSION: TWIN A: Normal biophysical profile score 8/8. Sonographic gestational age 35 weeks 6 days and sonographic due date of 05/26/2022. Estimated weight 23rd percentile. Abdominal circumference 13th percentile. TWIN B: Biophysical profile 6/8 with absent respiratory activity. Sonographic gestational age 36 weeks 2 days and sonographic due date 05/23/2022. Estimated weight 28th percentile. Abdominal circumference 21st percentile. Dictated by Jayro Addison MD @ 04/27/2022 10:22:51 AM (Electronically Signed)
== END 2022-04-27 08:48 | disposition home or self-care (01) ==
PROVIDERS: Visit Provider Obstetrics & Gynecology
DX: O30.043 Twin pregnancy, dichorionic/diamniotic, third trimester (principal); Z3A.36 36 weeks gestation of pregnancy
CPT/HCPCS: 76816; 76819

== ENCOUNTER 2022-04-27 11:13 | Outpatient (CLI) | payer OTHER, SELFPAY ==
[2022-04-28 12:57] LABS: Strep B DNA Probe NEGATIVE (Negative)
[2022-04-28 13:08] LABS: Strep B Pen/Amox Allergy No
== END 2022-04-27 11:14 | disposition home or self-care (01) ==
PROVIDERS: Visit Provider Obstetrics & Gynecology
DX: O30.043 Twin pregnancy, dichorionic/diamniotic, third trimester (principal); Z3A.35 35 weeks gestation of pregnancy
CPT/HCPCS: 80076; 87081; 87210; 87653

== ENCOUNTER 2022-05-03 09:07 | Inpatient (IN) | payer OTHER, SELFPAY ==
[2022-05-03] VITALS (19 sets, daily range): BP systolic 108–129; BP diastolic 58–79; PULSE 48–214; RESP 14–18; TEMP 36.3–37; O2SAT 79–99; BMI 37.9
[2022-05-03] MEDS: LACTATED RINGERS 1000 ML 1,000 ML 999 ML IV ×2 (09:25→10:25)
[2022-05-03 09:35] LABS: Basophils Absolute Auto 0.03 K/uL (0.00-0.30); Basophils Percent Auto 0.4 % (0.0-3.0); Eosinophils Absolute Auto 0.18 K/uL (0.00-0.50); Eosinophils Percent Auto 2.2 % (0.0-7.0); Hematocrit 32.5 % (33.0-51.0); Hemoglobin* 10.5 gm/dL (12.0-16.0); Immature Granulocytes Abs Auto 0.09 K/uL (0.00-0.30); Immature Granulocytes Pct Auto 1.1 %; Lymphocytes Absolute Auto 1.64 K/uL (0.90-2.90); Lymphocytes Percent Auto 20.3 % (20-44); Mean Corpuscular HGB Conc 32 gm/dL (32-36); Mean Corpuscular Hemoglobin 27 pg (26-34); Mean Corpuscular Volume 84 fL (80-100); Neutrophils Absolute Auto 5.41 K/uL (1.7-7.0); Platelet Count* 192 K/uL (140-440); RDW Coefficient of Variation % 14.3 % (11.5-15.5); Red Blood Count 3.89 m/uL (4.00-5.20); White Blood Count* 8.08 K/uL (4.50-11.00)
[2022-05-03 09:43] LABS: Slide Review Reflex No
[2022-05-03 10:31] LABS: SARS PCR* Negative SARS-CoV-2 (Negative)
--- NOTE | 2022-05-03 10:44 | W.ANESCHARGE ---
Anesthesia Charges Start Date/Time Anesthesia Start Date: 05/03/22 Anesthesia Start Time: 10:53 Stop Date/Time Anesthesia Stop Date: 05/03/22 Anesthesia Stop Time: 12:20
[2022-05-03] MEDS: CEFAZOLIN 2 GM in 0.9 % SODIUM CHLORIDE Mini-bag 100 ML IVPB (11:00)
--- NOTE | 2022-05-03 12:07 | P.LDBA_ITS ---
Subjective History of Present Illness Narrative: Patient is being admitted to Labor and Delivery for scheduled repeat delivery. She is a 36 year old -0-4-1 woman at 37 weeks, 1 day gestation. Specific Issues/Plans 1. conceived with the Mirena IUD.? IUD was removed 09/15/2021.? 2.?Di/Di twin gestation 81 mg of aspirin starting at 12 weeks MFM consult and genetics consult: 01/01/22 11/03/2021:? Confirmed Di/Di twins, normal nuchal translucency for both twins and nasal bone visualized in both twins. Recommendations: * Level 2 ultrasound at 18-20 week:? Normal anatomy, inter twin discordance is within normal limits, normal amniotic fluid * Serial growth ultrasounds every 4 weeks * 24 weeks.? Twin A, maternal left:? Cephalic, SDP 4.1, EFW 18%, AC 12%.? Twin B, maternal right:? Cephalic, SDP 4.6, EFW 46%, AC 41%.? Discordance 10.5%. * 28 weeks. ? Twin A, maternal left:? EFW 63%, all growth parameters within normal ranges, cephalic, SDP 5.1 cm.? Twin B, maternal right:? EFW 58%, all growth parameters within normal ranges.? Cephalic, SDP 5 cm.? * 32 weeks.? Twin A, maternal left:? Cephalic, SDP 2.7 cm, EFW 25% with all growth parameters within normal ranges, 1843 g.? Twin B, maternal right:? Cephalic, SDP 3.7 cm, EFW 1975 g = 44%, with all growth parameters within normal ranges. * ? 36 weeks: ? Twin a, maternal left:? BPP 8/8.? Cephalic.? EFW 23%, AC 13%.? Normal fluid.? Twin B, maternal right:? BPP 6/8, absent respiratory activity.? EFW 28%, with AC 21%.? Cephalic, normal fluid. * testing weekly starting at 36 weeks * Recommend delivery at 38-38 6/7 if otherwise undelivered? 3. AMA * Level 2 ultrasound:? 01/12/2022: Nineteen weeks, 5 days.? Twin a is maternal left, twin B maternal right.? EFW 82% / 83%.? Normal anatomy for both twins. * Declined genetic screening at this time, will consult with Genetics:? Consulted with genetics 11/03/21: declined screening 4. History recurrent loss, 4 ? Negative for antiphospholipid antibody this 5. Asthma Rare albuterol use 6.?History of , postdates induction secondary arrest of dilation and descent Desires repeat as early as possible in Scheduled for Tuesday05/03/[address] Claros = 37 1/7 weeks.? 7.? Desires sterilization.? Tubal consent forms signed 03/02/22. * Patient changed her mind on 04/13/2022.? Declines sterilization. 7. History of macrosomia, 10 lb 5 oz Given this and twin , early 1 hr GTT at 24 weeks.? 8. History of genital herpes Begin Valtrex 500 mg BID at 36 weeks.? ?prescription sent 04/27/2022. 9. History of cervical dysplasia for years, with 2-3 colposcopies.? No LEEPs Pap 10/06/2021: LSIL / HPV +, non 16 or 18 Colposcopy 11/10/21:? No obvious dysplasia Repeat pap with HPV testing . 10. Migraines 11. History of depression, doing well without treatment.??Begin sertraline during hospitalization.? 12.? BMI 36.6 at NOB 13.? Early 1 hr GCT elevated at 24 weeks.? 3 hr GTT with 1/4 values elevated; no diabetes.? Repeat 3 hr GTT in 3rd trimester:? 1/4 values elevated, no diabetes.? 14.? Anemia, with Hb 10.9 at 28 weeks.? Intolerant of iron pills.? Prescription sent for liquid iron QOD.? Consider IV iron if unable to tolerate. * Hb 11/1 on 04/04/22 * Repeat 04/27/22:? 10.5 15.?Cholelithiasis? * Hospitalized 04/04-04/07 at [facility] with right upper quadrant pain and elevated LFTs, gallstones and biliary sludge with mildly dilated common bile duct on ultrasound.? Imaging performed and notable for non-obstructing gallstones and no evidence of cholecystitis.? GI service consulted.? LFTs remained stable and pain improved.? Discharged with instructions to follow low-fat diet until gallbladder can be removed, hopefully 2-6 weeks after delivery.? Augmentin 10-day course prescribed as well as oxycodone for pain.? If she clinically develops cholecystitis prior to delivery, recommendation is for cholecystotomy tube until delivery. * Received betamethasone x2 during the hospital stay at [facility],04/05- 04/06. * ?given continuing requirement for regular oral oxycodone use, will move date to 37 weeks, 1 day. Her full history and physical was dictated by Dr. Claros on 04/27/2022. OB - Problem Based A/P Additional Plan (1) History of section: Status: Acute (2) Dichorionic diamniotic twin gestation: Status: Acute (3) Cholelithiasis: Status: Acute (4) Obesity: Status: Acute Plan Repeat delivery today. Given twin delivery, I will use TXA intraoperatively. Given this and BMI, I favor use of one dose of prophylactic lovenox . She was seen last week by [facility], who recommended cholecystectomy in 2-4 weeks. I have consulted Dr. Gomez, who will see her . Delivery/Labor/Induction Plan Plan: Section OB Exam Physical Exam Vital signs: Temp Pulse BP Pulse Ox 97.4 F L 79 119/72 79 L 05/03/22 09:46 05/03/22 09:46 05/03/22 09:46 05/03/22 09:45 Narrative: Gen - NAD Abd - soft, NT, gravid
--- NOTE | 2022-05-03 12:12 | PM.OBPRCCS ---
Procedure Pre-op/Post-op diagnoses: Pre-Op/Post-Op Diagnoses Operation Date: 05/03/22 11:40 <No data on this case meets the specified criteria> Procedure Done: Global Procedure Details: Procedures Operation Date: 05/03/22 11:40 Actual Procedure Side Surgeon p Repeat Section w/Twins Lana Claros MD Narrative: PREOPERATIVE DIAGNOSIS: 37 weeks, 1 day gestation Dichorionic, diamniotic twin gestation Cholelithiasis with persistent right upper quadrant pain requiring narcotic use Previous delivery POSTOPERATIVE DIAGNOSIS: 37 weeks, 1 day gestation Dichorionic, diamniotic twin gestation Cholelithiasis with persistent right upper quadrant pain requiring narcotic use Previous delivery PROCEDURE: Repeat low-transverse section SURGEON: Lana Claros MD ANESTHESIA: Spinal IV FLUIDS: 1500 mL crystalloid QBL: 576 mL FINDINGS: 1. Twin A was on maternal left, female in vertex presentation, Apgars 8 and 8, weight 6 lb, 2 oz. 2. Twin B was on maternal right, female in vertex presentation, Apgars of 8 and 9, weight 5 lb, 13 oz 2. Normal appearance to uterus, bilateral tubes and ovaries. COMPLICATIONS: None PROCEDURE IN DETAIL: Patient was taken to the operating room with IV running. She received cefazolin in preoperative prophylaxis. Spinal anesthesia had previously been administered. Mosley catheter was inserted. She was prepped and draped in the usual sterile fashion. Anesthesia was tested and found to be adequate. She was given cefazolin in preoperative prophylaxis. A low-transverse skin incision was made with a scalpel and carried through to the underlying layer of fascia with the scalpel. The subcutaneous fat was dissected off the underlying fascia with Bovie. The fascia was nicked in the midline with a scalpel, and this incision was extended laterally with scissors. The fascia was dissected off the underlying rectus muscles midline in the superior direction. Inferiorly, it was bluntly. The rectus muscles were in the midline. Peritoneum was identified and entered bluntly. Traction was used to widen this opening laterally. Carlo O retractor was inserted and tightened down, providing excellent visualization of the lower uterine segment. The bladder reflection was found to be well below the planned site for hysterotomy. Low-transverse uterine incision was made with a scalpel. Incision was widened bluntly. The the head of infant A was grasped through the hysterotomy and delivered with the help of fundal pressure. The remainder of the body delivered without incident. Cord was clamped and cut after 30 seconds. was handed off to attending nurses. The the head of infant B was grasped through the hysterotomy with the bag of water still intact. Head was delivered with the help of fundal pressure, and the bag broke in the process. The remainder of the body delivered without incident. Cord was clamped and cut after 30 seconds. Infant was handed off to attending nurses. The placentas were delivered with gentle traction on the cords. The uterus was cleaned of all clots and debris with the dry lap pad. The hysterotomy was reapproximated with 0 Vicryl in a running, locked fashion. Hemostasis was noted. The adnexa were examined and noted to be normal in appearance. The cul-de-sac and gutters were cleansed with dampened laparotomy sponge, removing any further clots and debris. The Carlo O retractor was removed. The hysterotomy was reexamined and found to be hemostatic. The peritoneum was reapproximated with 2 0 Vicryl in a running fashion. The rectus muscles were examined and Bovie was used at a few sites on the muscle until hemostasis was noted. The fascia was reapproximated with 0 Vicryl in a running fashion. Subcutaneous fat was irrigated and Bovie used on oozing vessels. The subcutaneous fat was reapproximated with 2 0 plain gut suture in an interrupted fashion. The skin was closed with a subcuticular stitch of 4-0 Monocryl. Surgical glue was applied above this. Patient tolerated procedure well was taken to recovery area in stable condition.
--- NOTE | 2022-05-03 12:40 | P.NB_ITS ---
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 Images saved: Yes Medications given in 5ml increments after negative aspiration: Marcaine %: 0.25 mL: 30 Needle gauge: 20 and Exparel mL: 10 Patient tolerated procedure well: Yes Additional comments: Needle noted adjacent to nerve Block Charges Block Charge (with Pro Fee): TAP Bilateral Use of Ultrasound Machine for Block: Yes- US Guidance/pain block
--- NOTE | 2022-05-03 13:59 | W.ANESCHARGE ---
Anesthesia Charges Start Date/Time Anesthesia Start Date: 05/03/22 Anesthesia Start Time: 10:53 Stop Date/Time Anesthesia Stop Date: 05/03/22 Anesthesia Stop Time: 12:20
[2022-05-03] MEDS: ONDANSETRON 2 MG/ML inj 4 MG IV (14:21)
[2022-05-03] MEDS: LACTATED RINGERS 1000 ML 1,000 ML 125 ML IV (14:30)
[2022-05-03] MEDS: SCOPOLAMINE 1 MG/3 DAY PATCH 1 PATCH TRANSDERMA (14:44)
[2022-05-03] MEDS: KETOROLAC 30 MG/ML inj IVP (18:46)
[2022-05-04] MEDS: ENOXAPARIN 40 MG/0.4 ML INJ SUBCUT (00:28)
[2022-05-04] MEDS: KETOROLAC 30 MG/ML inj IVP ×4 (00:28→18:32)
[2022-05-04 04:40] VITALS: BP 108/68; PULSE 52; RESP 16; TEMP 36.6; O2SAT 98
[2022-05-04 07:16] LABS: Hemoglobin* 9.4 gm/dL (12.0-16.0)
--- NOTE | 2022-05-04 07:19 | P.OBPN_ITS ---
OB - PN: A/P Assessment and Plan (1) History of section: Status: Acute (2) Dichorionic diamniotic twin gestation: Status: Acute (3) Cholelithiasis: Status: Acute (4) Obesity: Status: Acute Plan day: 1 Plan: routine postop care Comments: Assessment/Plan status post uncomplicated repeat . 1. ?Continue route PP cares 2. ?. ?May see if desired 3. ?Anticipate discharge home tomorrow or the following day per pt preference 4. ?Acute anemia. ?Iron supplement declined r/t tolerance. Will continue with liquid at home. 5. Hx of depression. Would like to start on medication now that she is PP. Will order zoloft 25 mg, increase to 50 mg in 1-2 weeks. OB - PN: Subj Subjective Time Seen by Provider: 07:19 Date Seen: 05/04/22 Interval history: Collette is a 36 y.o. who was admitted to L & D for repeat w/ twins. ?She had an uncomplicated . ? Patient comments: no complaints [place] infant status: bottle and [place] feeding status: breast and bottle feeding Narrative: The patient feels well. ?The pain is well controlled with current medications. ?She has no new complaints. ?She is breast feeding, pumping and supplementing and reports things are going well.? the patient has done well.? Vitals have been stable.? She has remained afebrile.? Has a good appetite, is tolerating a general diet. ?She is voiding without difficulty.? She is passing gas and has not had a bowel movement.? She is ambulating and denies any dizziness.? Has Small amount of rubra lochia.She has a hx of depression, has been stable this , but desires to restart on medication now that she is PP. Has previously taken prozac, but mentioned starting on something different w/ . Her hgb is still pending, but will likely be low. She has not been tolerating oral medication r/t her gallbladder, but has liquid iron at home to take. OB - PN: Obj Exam Physical Exam: Vital signs: Temp Pulse Resp BP Pulse Ox O2 Del Method 98 F 52 L 16 108/68 98 05/04/22 04:40 05/04/22 04:40 05/04/22 04:40 05/04/22 04:40 05/04/22 04:40 05/04/22 04:40 Narrative: VSS. Afebrile GENERAL APPEARANCE: ?normal affect, alert, no distress MOOD: ?appropriate HEENT: normocephalic, neck supple, full ROM CHEST: ?Symmetrical chest wall movement. ?Normal respiratory effort. ?Clear to auscultation HEART: ?regular rate and rhythm ABDOMEN: ?soft, non-tender. Uterine fundus is firm, at Umbilicus, Midline and is appropriate for the stage of recovery. ?Bowel sounds present. EXTREMITIES: ?normal and no edema SKIN: warm, dry. Dressing on, clean/dry/intact No signs of infection noted. Urinary Catheter Management: Mosley: Cath placed during this visit: yes, but has since been removed by the nurse Reason for continuing: surgical procedure Insertion date: 05/03/22 Insertion time: 11:00 Removal date: 05/03/22 Removal time: 18:50 OB - PN: Obj Data Labs Labs: Laboratory Results - last 24 hr 05/03/22 05/03/22 05/03/22 09:16 09:25 09:25 WBC RBC Hgb Cancelled Hct MCV MCH MCHC RDW Coeff of Scott Plt Count Neut % (Auto) Lymph % (Auto) [place] % (Auto) Eos % (Auto) Baso % (Auto) Neut # (Auto) Lymph # (Auto) [place] # (Auto) Eos # (Auto) Baso # (Auto) SARS-CoV-2 (PCR) Negative SARS-CoV-2 Blood Type AB Positive Antibody Screen NEGATIVE Crossmatch ([facility]) See Detail 05/03/22 09:25 WBC 8.08 RBC 3.89 L Hgb 10.5 L Hct 32.5 L MCV 84 MCH 27 MCHC 32 RDW Coeff of Scott 14.3 Plt Count 192 Neut % (Auto) 67.0 Lymph % (Auto) 20.3 [place] % (Auto) 9.0 Eos % (Auto) 2.2 Baso % (Auto) 0.4 Neut # (Auto) 5.41 Lymph # (Auto) 1.64 [place] # (Auto) 0.70 Eos # (Auto) 0.18 Baso # (Auto) 0.03 SARS-CoV-2 (PCR) Blood Type Antibody Screen Crossmatch ([facility])
[2022-05-04 08:25] VITALS: BP 99/62; PULSE 64; RESP 16; TEMP 36.7; O2SAT 96
[2022-05-04] MEDS: SERTRALINE 50 MG TABLET 25 MG PO (09:54)
[2022-05-04 12:10] VITALS: BP 96/60; PULSE 55; RESP 16; TEMP 36.8; O2SAT 96
--- NOTE | 2022-05-04 13:30 | PM.GSCN ---
History of Present Illness Consult details Date Seen: 05/04/22 Consult date: 05/04/22 Narrative: The patient is a 36-year-old female who I was asked to see for a history of choledocholithiasis in . Approximately 3 weeks ago she had an episode of severe right upper quadrant pain which radiated to her back. She was found to have an elevated bilirubin up to 3 as well as a dilated common bile duct and gallstones seen on ultrasound. There was concern for cholecystitis and choledocholithiasis. She was transferred to [facility] for further workup and management given her twin gestation as well as the choledocholithiasis. There, her total bilirubin had decreased down to 1.0. MRCP showed a possible common bile duct filling defect, however because her bilirubin had returned to normal no ERCP was pursued. She was seen by General surgery who recommended outpatient cholecystectomy 2 to 6 week after delivery. If she developed worsening cholecystitis in the interim they recommended cholecystostomy tube. Fortunately after this her pain has improved. She has had no further episodes. She has been able to eat without difficulty. She has not really been adhering to a low-fat diet as was suggested. She does have a history of constipation, having bowel movements sometimes only once a week. She states that she has had issues with reflux and heartburn a few times a month after eating. This has been going on for the past 2 years or so. This is associated with nausea and vomiting. Yesterday she underwent repeat and gave to twin daughters. This was uneventful. [facility] Medical History (Updated 05/04/22 @ 13:36 by Maria Fernanda Gomez MD) Anemia complicating Cervical dysplasia Choledocholithiasis Dichorionic diamniotic twin gestation Encounter for initial prescription of contraceptive pills History of herpes genitalis Hyperlipidemia Major depressive disorder Migraine with aura Obesity Positive test for human papillomavirus (HPV) (2019) Recurrent loss Seasonal allergic rhinitis Surgical History (Updated 05/03/22 @ 12:09 by Lana Claros MD) History of appendectomy History of section (2008) History of colposcopy with cervical biopsy Family History Maternal Grandmother Breast cancer, Onset Age: 65 Diabetes DVT (deep venous thrombosis) High cholesterol Pancreatic cancer Family/Other Breast cancer High blood pressure Thyroid disease Sister High cholesterol PCOS (polycystic ovarian syndrome) Paternal Grandfather Leukemia Other Miscarriage Social History (Updated 04/27/22 @ 11:05 by Lana Claros MD) Narrative: Lives in [place] 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 No alcohol or ilicit drug use. History of tobacco use Tattoos Smoking Status: Former smoker Little interest or pleasure in doing things: more than half the days Feeling down, depressed, or hopeless: more than half the days Meds Home Medications and Allergies Home Medications Medication Instructions Recorded Confirmed Type docosahexaenoic acid 200 mg mg PO 11/10/21 04/27/22 History capsule ( DHA) cetirizine 10 mg capsule (Zyrtec) 10 mg PO QDAY PRN 03/16/22 04/27/22 History acetaminophen 500 mg tablet 500 mg PO Q6H PRN 04/21/22 04/27/22 History (Tylenol Extra Strength) Allergies Allergy/AdvReac Type Severity Reaction Status Date / Time chicken derived Allergy Intermediate Hives Verified 04/27/22 09:29 pork/porcine Allergy Mild Hives Uncoded 04/27/22 09:29 productderivatives,chicken derived. Exam Narrative: Exam Narrative: General appearance: Alert, cooperative, and in no distress Eyes: PERRLA, eye lids clear, and sclera white HENT Head: Normocephalic Ears: External ears normal Pulmonary: Breathing nonlabored on room air Cardiovascular Heart: Regular rate Extremities: warm and well perfused Gastrointestinal Abdominal: Protuberant consistent with state. Bandage in place on lower abdomen. No scars or hernias noted in upper abdomen. Musculoskeletal: Extremities: Upper: Both upper extremities have normal joint range of motion and intact strength. Lower: Both lower extremities have normal joint range of motion and intact strength. Skin: Normal skin color, texture, and turgor. No rashes or lesions. Neurologic: No focal deficits Psychiatric: Alert, oriented, cooperative, normal affect. Const: Vital Signs, click to edit/add: Vital Signs - 24 hr 05/03/22 13:37 05/03/22 14:15 05/03/22 14:00 Temperature Pulse Rate [Blood Pressure Cuff] 61 60 65 Respiratory Rate Blood Pressure [Le ft Arm] 120/74 Blood Pressure [Ri ght Arm] 124/77 122/78 Pulse Oximetry Oxygen Delivery Me thod 05/03/22 14:30 05/03/22 14:45 05/03/22 16:45 Temperature 98.6 F Pulse Rate [Blood Pressure Cuff] 51 L 50 L 66 Respiratory Rate 14 Blood Pressure [Le ft Arm] Blood Pressure [Ri ght Arm] 128/79 113/72 122/73 Pulse Oximetry 98 Oxygen Delivery Me thod Room Air 05/03/22 23:02 05/04/22 04:40 05/03/22 19:30 Temperature 97.6 F 98 F 97.5 F L Pulse Rate [Blood Pressure Cuff] 52 L 52 L 48 L Respiratory Rate 16 16 16 Blood Pressure [Le ft Arm] Blood Pressure [Ri ght Arm] 108/69 108/68 116/75 Pulse Oximetry 96 98 99 Oxygen Delivery Me thod Room Air Room Air Room Air 05/04/22 08:25 05/04/22 12:10 Temperature 98.1 F 98.2 F Pulse Rate [Blood Pressure Cuff] 64 55 L Respiratory Rate 16 16 Blood Pressure [Le ft Arm] Blood Pressure [Ri ght Arm] 99/62 96/60 Pulse Oximetry 96 96 Oxygen Delivery Me thod Room Air Room Air Results Labs Labs: Most recent hemoglobin postop was 9.4. This is down from 10.5 preprocedure Total bilirubin from 04/27/2022 was 0.7. Remainder of LFTs within normal limits except for alk-phos switch remains elevated at 302. On 04/04/2022, total bilirubin was 3.0 with direct bilirubin 2.2. Alkaline phosphatase was 278 an AST and ALT were 62 and 85. Imaging Additional studies: MRCP done on 04/06/2022: 3 mm filling defect in the distal common bile duct concerning for choledocholithiasis. Cholelithiasis without wall thickening to suggest cholecystitis. Ultrasound abdomen from 04/04/2022 TECHNIQUE: Ultrasound abdomen limited. Sonographic images of the right upper quadrant were obtained using moncada-scale and color Doppler images. COMPARISON: None FINDINGS: Liver: Normal in size and echotexture. No masses. No intrahepatic biliary dilatation. The main portal vein demonstrates hepatopetal flow. Gallbladder: Shadowing stones and layering sludge. Normal wall thickness. No pericholecystic fluid. Positive sonographic Dunbar`s sign. Common bile duct: The common duct is prominent measuring 9 mm in diameter. Pancreas: Not well visualized due to overlying bowel gas. Right kidney: Measures 10.6 x 5.6 x 5.6 cm. Normal echotexture and cortex. No masses, stones, or hydronephrosis. Vasculature: Visualized proximal abdominal aorta and IVC are normal. IMPRESSION: 1. Cholelithiasis and layering sludge. Positive sonographic Dunbar sign. Findings are suspicious for acute cholecystitis. 2. The common duct is prominent measuring 9 mm in diameter. No common duct stone was visualized. Assessment and Plan Assessment and plan (1) Status post repeat low transverse section: Status: Acute (2) Cholelithiasis: Status: Acute (3) Choledocholithiasis: Status: Acute Plan The patient is a 36-year-old female who is postop day 1 from . She developed choledocholithiasis during , however likely passed the stone. She has since been asymptomatic for the past month. Recommendations at the outside hospital were for the patient undergo cholecystectomy after . Since she is doing well currently, I recommend that we wait 4 weeks to do the procedure. She and I talked about cholecystectomy as well as risks, benefits and recovery. I recommend that we attempted intraoperative cholangiogram given the MRCP having shown possibly a small stone though likely this has passed since her labs are all now normal. We talked about recovery from surgery as well as lifting restrictions and expectations regarding pain and activity. She understands that if her pain worsens in the interim that she should call and we could potentially do surgery sooner. She had the opportunity ask questions and expressed good understanding of the plan. We will reach out to her to schedule. She will be given a number to call if her symptoms change.
[2022-05-04 16:30] VITALS: BP 105/66; PULSE 56; RESP 16; TEMP 36.6; O2SAT 98
[2022-05-04] MEDS: FERROUS SULFATE 325 MG TABLET PO (20:31)
[2022-05-04 23:27] VITALS: BP 104/66; PULSE 49; RESP 16; TEMP 36.8; O2SAT 97
[2022-05-05 07:25] VITALS: BP 120/70; PULSE 56; RESP 16; TEMP 36.6; O2SAT 96
--- NOTE | 2022-05-05 07:30 | PM.OBDSCS1 ---
DS: Providers Provider Date Seen: 05/05/22 Date of admission: 05/03/22 09:07 Primary care physician: Not a Local Provider Admitting Clinician: Lizette Mann MD Consults: 05/03/22 12:11 Consult to Physician [CONS] Routine Comment: Consulting Provider: Maria Fernanda Gomez Has provider been notified: Yes Attending Physician on discharge: Lizette Mann MD Date of Discharge: 05/05/22 DS: Diagnosis Discharge Diagnosis (1) care following delivery: Status: Acute (2) Lactating mother: Status: Acute Exam Narrative: Exam Narrative: GENERAL APPEARANCE:? normal affect, alert, no distress? MOOD:? appropriate? CHEST:? clear to auscultation and percussion? HEART:? regular rate and rhythm? ABDOMEN:? soft, non-tender the uterine fundus is 1 cm Below Umbilicus, Midline and is appropriate for the stage of recovery. Incision well approximated without edema, redness, warmth, or drainage. Glue closure intact.? EXTREMITIES:? normal and no edema? Patient has no complaints? No active bleeding?? Doing well? She is requesting discharge home.? Const: Vital Signs, click to edit/add: Vital Signs - 24 hr 05/04/22 08:25 05/04/22 12:10 05/04/22 16:30 Temperature 98.1 F 98.2 F 98 F Pulse Rate [Blood Pressure Cuff] 64 55 L 56 L Respiratory Rate 16 16 16 Blood Pressure [Ri ght Arm] 99/62 96/60 105/66 Pulse Oximetry 96 96 98 Oxygen Delivery Me thod Room Air Room Air Room Air 05/04/22 23:27 Temperature 98.2 F Pulse Rate [Blood Pressure Cuff] 49 L Respiratory Rate 16 Blood Pressure [Ri ght Arm] 104/66 Pulse Oximetry 97 Oxygen Delivery Me thod Room Air Documenting provider has reviewed patient's vital signs: yes OB - DS: Summary Hospital Course Hospital Course: The patient is a 36 year old G 6 P 3 at 37.1 weeks gestation that was admitted to the Center on 05/03/22 for []. She had an uncomplicated delivery. She delivered a viable twin female infants. She is breast feeding and supplementing with formula. She feels the is going well but states that she isn't making any milk right now for her babies. she plans to continue to put them to breast and supplement as needed. the patient has done well.? Her pain is well controlled with current medications.? She has no new complaints.? Vitals have been stable. She has remained afebrile. She is voiding without difficulty. She is passing gas and has not had a bowel movement. Her Hgb is 9.4 but she is ambulating and denies any dizziness. Will plan on PO iron supplementation. She is planning and IUD or Nexplanon for control. Peripartum Data Procedures: Procedures Operation Date: 05/03/22 11:40 Actual Procedure Side Surgeon p Repeat Section w/Twins Lana Claros MD complications: none [place] Infant A Gender: Female Infant Discharge Plan: Home [place] B Gender: Female Infant Discharge Plan: Home Status at Discharge Functional status at discharge: independent ambulation Overall status at discharge: patient is progressing back to baseline Time Spent with Patient Time attestation: Total time spent providing and/or coordinating discharge services: Discharge Plan Discharge Disposition: Home, Self-Care Date of Admission: 05/03/22 09:07 Attending Provider on Discharge: Amarilys Grijalva Consulting Providers: Maria Fernanda Gomez Primary Care Provider: Provider,Not a Local Condition: Stable Anticipated Discharge Date/Time: 05/05/22 15:00 Discharge Medications: New ibuprofen 600 mg Tablet 600 mg PO Q6H PRN (Reason: Pain) Qty: 60 0RF sertraline 50 mg Tablet 25 mg PO DAILY Qty: 30 0RF Continued DHA 200 mg capsule PO Zyrtec 10 mg capsule 10 mg PO QDAY PRN docusate sodium [Colace] 100 mg capsule 100 mg PO BID PRN (Reason: constipation in ) Qty: 60 3RF polyethylene glycol 3350 [Miralax] 17 gram/dose powder 17 g PO QDAY Qty: 238 2RF acetaminophen [Tylenol Extra Strength] 500 mg tablet 500 mg PO Q6H PRN ferrous sulfate 220 mg (44 mg iron)/5 mL elixir 220 mg PO BID Qty: 473 1RF Rx Instructions: Use twice daily *every other day* as tolerated. oxycodone 5 mg capsule 5 mg PO Q6H PRN (Reason: pain) Qty: 20 0RF clotrimazole [Clotrimazole-7] 1 % cream 1 appful vaginal QHS Qty: 45 0RF Discontinued valacyclovir [Valtrex] 500 mg tablet 500 mg PO BID Qty: 14 0RF ondansetron 4 mg tablet,disintegrating 4 mg PO Q6H PRN (Reason: nausea and vomiting) Qty: 30 0RF Discharge Orders: Discharge Order (Routine); Ordered 05/05/22 Ordered By: Amarilys Grijalva Consulting provider completed their portion of the discharge: Yes Patient Education: OB /Bottle Feeding Additional Instructions: Discharge instructions were reviewed with the patient including signs and symptoms of infection and home going medications? ?? Activity restrictions:? Lifting Restrictions: 20 pounds for 6 weeks? No high-impact or core exercises for 6 weeks.?? No not submerge incision under water X 2 weeks?? Nothing vaginally for 6 weeks: no tampons or intercourse? Do not drive while taking narcotic pain medication(s)? Off Work or School for 8 weeks? ?? Symptoms to report to doctor:? -Bleeding that saturates more than one pad per hour? -Passing clots larger than the size of a golf ball? -Pain not relieved by prescribed medication? -Fever above 100.4 degrees Fahrenheit? -A foul vaginal odor? -Difficulty in emotions, mood and functions? -Thoughts of hurting yourself and/or ? -Painful, reddened area in your breast? -Any drainage, redness or tenderness in your IV/epidural site? -Severe headache that doesn't improve after taking medications? -Changes in vision, including temporary loss of vision, blurred vision, and/or light sensitivity? -Upper abdominal pain (usually under ribs on the right side)? -Decrease in urination or painful, frequent urinating? -Chest pain? -Shortness of breath? -Tenderness or pain with redness and/swelling in the calf(s) of your leg? Follow up visits:?? 1. 1 week visit:? incision check.? 2. 2-week visit: discuss feeding/care concerns, review control options and screen for anxiety/depression.? 3. 6-week visit for an annual exam.? ?? consultation services are available to all mothers and babies for the first year after delivery.? To make an appointment, please call [phone].? Activity Level: Other Activity Detail: See provider notes regarding weight restrictions and activity. Discharge Diet: Regular Follow Up Appointments: [facility] [Provider Group] Provider,Not a Local [Primary Care Provider] - Forms: [employer] Info Instructions
[2022-05-05 12:48] VITALS: BP 120/70; PULSE 56; RESP 16; TEMP 36.6
== END 2022-05-05 13:40 | disposition home or self-care (01) | DRG 540 ==
PROVIDERS: Obstetrics & Gynecology; Admitting Provider Obstetrics & Gynecology; Visit Provider Obstetrics & Gynecology
PROC: 10D00Z1 Extraction of Products of Conception, Low, Open Approach (ICD-10-PCS; CPT 59514; principal; 2022-05-03 11:30)
DX: O34.211 Maternal care for low transverse scar from previous cesarean delivery (principal); O99.62 Diseases of the digestive system complicating childbirth; K80.70 Calculus of gallbladder and bile duct without cholecystitis without obstruction; O30.043 Twin pregnancy, dichorionic/diamniotic, third trimester; O98.32 Other infections with a predominantly sexual mode of transmission complicating childbirth; A60.00 Herpesviral infection of urogenital system, unspecified; O99.344 Other mental disorders complicating childbirth; F32.A Depression, unspecified; O99.02 Anemia complicating childbirth; D64.9 Anemia, unspecified; O99.214 Obesity complicating childbirth; E66.9 Obesity, unspecified; Z3A.37 37 weeks gestation of pregnancy; Z37.2 Twins, both liveborn
CPT/HCPCS: 01961; 36415; 51798; 76942; 85018; 85025; 86850; 86900; 86901; 86922; 87635; 88307; A9270; C9290; J0690; J1650; J1885; J2274; J2370; J2405; J2590; J3490; J7120

== ENCOUNTER 2022-06-03 06:08 | Day surgery (SDC) | payer OTHER, SELFPAY ==
[2022-06-03] VITALS (20 sets, daily range): BP systolic 121–154; BP diastolic 68–93; PULSE 56–86; RESP 12–24; TEMP 36.3–36.8; O2SAT 92–99; BMI 32.2
--- NOTE | 2022-06-03 06:22 | SUR.PREOP ---
HOME COVID TEST NEGATIVE.
[2022-06-03 06:41] LABS: Ur HCG Qualitative* Negative (Negative)
[2022-06-03] MEDS: LACTATED RINGERS 1000 ML 1,000 ML 100 ML IV ×2 (06:45→09:44)
[2022-06-03] MEDS: SODIUM CHLORIDE 0.9 % (FLUSH) 10 ML SYRINGE IVF (06:45)
--- NOTE | 2022-06-03 07:30 | CRLHL7_ITS ---
For Patients: As a result of the Century Cures Act, medical imaging exams and procedure reports are released immediately into your electronic medical record. You may view this report before your referring provider. If you have questions, please contact your health care provider. INDICATION : Laparoscopic cholecystectomy. TECHNIQUE : Intraoperative cholangiogram. Contrast injected via gallbladder neck and cystic duct. FINDINGS : Fluoroscopy time was 109.8 seconds. 3 images were obtained. IMPRESSION : Contrast is present in the cystic duct extending to the common bile duct and duodenum. There is an ovoid filling defect within the distal common bile duct measuring 5.9 millimeters which is present on 2 images. This may suggest a common bile duct stone. Dictated by Jayro Addison MD @ 06/03/2022 12:20:00 PM (Electronically Signed)
--- NOTE | 2022-06-03 08:23 | P.GSOP_ITS ---
Operative Note Date of procedure: 06/03/22 Pre-op diagnosis: 1. Cholecystitis during , now resolved 2. Choledocholithiasis during , now resolved 3. Biliary colic Post-op diagnosis: 1. Cholecystitis during , now resolved 2. Choledocholithiasis 3. Biliary colic Type of Procedure: 1. Laparoscopic cholecystectomy 2. Intraoperative cholangiogram Indications: The patient is a 36-year-old female with a history of choledocholithiasis during . She initially presented in late March/early April with an episode of severe right upper quadrant pain and was found to have bilirubin of 3 with common bile duct dilatation. MRCP showed a possible common bile duct filling defect at an outside hospital, however because her bilirubin then returned to normal and she was , no ERCP was performed. She was advised to undergo laparoscopic cholecystectomy . I saw her in consultation last month and her symptoms had improved. We recommended cholecystectomy with intraoperative cholangiogram to prevent further complications from gallstones. After discussion of options she agreed to proceed with cholecystectomy. Since I saw her she has had only 1 episode of abdominal pain after eating. Procedure Description: After discussing the risks and benefits of the procedure, the patient signed informed consent.? The operative site was marked and the patient was brought to the operating room and placed on the operating table in supine position.? Care was taken to pad the patient's pressure points.?? The patient was then intubated by anesthesia.?? The operative site was then prepped and draped in the usual sterile fashion.? A time-out was then performed. Entrance to the abdomen was gained via a 5 mm Visiport in the left upper quadrant. The abdomen was insufflated and briefly surveyed for signs of injury. There was none. A 10 mm umbilical port was placed as well as 2 working ports along the right costal margin, all under direct vision. The patient was then placed in reverse Trendelenburg position with the right side up. The gallbladder fundus was grasped and retracted cephalad. The infundibulum was grasped. A combination of hook cautery and blunt dissection was used to carefully dissect out the cystic duct and artery until they could clearly be seen entering the gallbladder without any intervening structures. The gallbladder was dissected off the cystic plate to achieve the critical view. Once this was achieved the cystic artery was clipped with 2 clips proximally and 1 clip distally and transected with the scissors. There was another small vessel going directly into the gallbladder which was also clipped. The cystic duct was noted to be too large for a clip; however 1 was placed proximally and a ductotomy was created below this. A cholangiocatheter was advanced and sealed. A leak test was negative. Fluoroscopy was brought into the field and it was clear that the gallbladder was filling as well. I repositioned the catheter then and performed another leak test and was able to get a good seal. Contrast was then injected into the catheter and there was filling of the cystic duct, common bile duct and right and left hepatic ducts. It did not appear as though there was a filling defect distally, however there was no filling of the duodenum initially. Looking at the cystic duct on imaging, it appeared as though the ductotomy was possibly created in the gallbladder itself as there were stones noted just distal to the instrument cl amp across the ductotomy. It appeared as though the stones were pooled in the infundibulum of the gallbladder and the distal gallbladder was just extremely narrow. The cystic duct was long and tortuous. I removed the cholangiocatheter and stones poured from the cystic duct/distal gallbladder. I then dissected down farther down on the cystic duct to ensure that the entire gallbladder and the area where the stones had been sitting were removed. I was unable to deliver any further stones from the distal end of the gallbladder sauce cystic duct. I then replaced the cholangiocatheter and clam ped across the cystic duct. Contrast was then injected after bringing fluoroscopy into the field and performing a saline leak test. There had been filling of the duodenum in the interim, however now there was a clear filling defect in the distal common bile duct. There were no stones noted in the cystic duct. 1 mg of glucagon was given and attempts were made to flush the stone after waiting 5 minutes, however this was unsuccessful. I then removed the cholangiocatheter, allowed the duct to decompressed, and then transected the cystic duct. In 0 PDS and an 0 Vicryl endoloop were each placed on the cystic duct stump. The gallbladder was then taken off of the liver bed and removed from the abdomen using an Endo-Catch bag. Small stones that had spilled were removed from the abdomen. The abdomen was meticulously explored and irrigated in the right upper quadrant to ensure that these were removed. The gallbladder bed was surveyed for hemostasis which appeared adequate. The abdomen was desufflated. The ports were removed and the umbilical port fascia was closed with 0 Vicryl. The skin was closed with absorbable subcuticular suture. Instrument sponge and needle counts were correct at the end of the case. The patient was then woken and transferred to the PACU in stable condition. ? Sterile dressings were then applied. ? The patient was then woken and transported to the recovery area in stable condition. ? The patient tolerated the procedure well. Findings: 1. Cholelithiasis 2. Choledocholithiasis Anesthesia: TANIYA Surgeon: Maria Fernanda Gomez MD Estimated blood loss (mL): 10 Specimen: Gallbladder Condition: stable Disposition: PACU
[2022-06-03] MEDS: CEFAZOLIN 2 GM INJ IVP (08:30)
--- NOTE | 2022-06-03 08:34 | W.ANESCHARGE ---
Anesthesia Charges Start Date/Time Anesthesia Start Date: 06/03/22 Anesthesia Start Time: 08:18 Stop Date/Time Anesthesia Stop Date: 06/03/22 Anesthesia Stop Time: 10:52
[2022-06-03] MEDS: IOPAMIDOL 50 ML VIAL INJECTION (10:00)
[2022-06-03] MEDS: 0.9% SODIUM CHL 50 ML VIAL INJECTION (10:30)
[2022-06-03] MEDS: BUPIVACAINE 0.25% 30 ML INJECTION (10:38)
--- NOTE | 2022-06-03 10:55 | W.ANESCHARGE ---
Anesthesia Charges Start Date/Time Anesthesia Start Date: 06/03/22 Anesthesia Start Time: 08:18 Stop Date/Time Anesthesia Stop Date: 06/03/22 Anesthesia Stop Time: 10:52
[2022-06-03] MEDS: ONDANSETRON 2 MG/ML inj 4 MG IVP (11:03)
[2022-06-03] MEDS: fentaNYL 100 MCG/2 ML inj 50 MCG IVP (11:22)
[2022-06-03] MEDS: METOCLOPRAMIDE HCL 5 MG/ML INJ 10 MG IVP (11:33)
--- NOTE | 2022-06-03 12:00 | SUR.PHASEI ---
patient met discharge criteria per anesthesia
--- NOTE | 2022-06-03 12:09 | SUR.PHASEII ---
PATIENT COMPLAINS OF NAUSEA, ICE PACK TO NECK, COOL WASH CLOTH TO FOREHEAD AND Q-EASY ESSENTIAL OIL GIVEN.
[2022-06-03] MEDS: SCOPOLAMINE 1 MG/3 DAY PATCH 1 PATCH TRANSDERMA (12:55)
== END 2022-06-03 13:00 | disposition home or self-care (01) ==
PROVIDERS: Anesthesiology; PCP Family Medicine; Visit Provider Surgery
PROC: 0FT44ZZ Resection of Gallbladder, Percutaneous Endoscopic Approach (ICD-10-PCS; CPT 47563; principal; 2022-06-03 07:30)
DX: O99.63 Diseases of the digestive system complicating the puerperium (principal); K80.44 Calculus of bile duct with chronic cholecystitis without obstruction
CPT/HCPCS: 47562; 00790; 74300; 76000; 81025; 88304; A9270; J0330; J0690; J1100; J1170; J1610; J2250; J2405; J2704; J2765; J3010; J3490; J7120; Q9967

== ENCOUNTER 2022-09-27 17:47 | Emergency (ER) | payer OTHER, MEDICARE, SELFPAY ==
[2022-09-27 17:52] VITALS: BP 130/89; PULSE 75; RESP 18; TEMP 36.5; O2SAT 99; BMI 31.3
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
--- NOTE | 2022-09-27 18:27 | CRLHL7_ITS ---
For Patients: As a result of the Century Cures Act, medical imaging exams and procedure reports are released immediately into your electronic medical record. You may view this report before your referring provider. If you have questions, please contact your health care provider. CLINICAL HISTORY: Trauma. TECHNIQUE: Standard helical CT image acquisition of the brain was performed. COMPARISON: None available. FINDINGS: There is no intracranial hemorrhage, extra-axial collection, mass effect, or midline shift. Jaquez-white matter differentiation is preserved. The ventricles are normal in size and morphology for patient age. No displaced calvarial fracture. The orbits are unremarkable. Mild polypoid mucosal thickening of the maxillary sinuses with a mucous retention cyst in the right maxillary sinus. Mild mucosal thickening of the ethmoid air cells. The mastoid air cells are unremarkable. IMPRESSION: No CT evidence of acute intracranial abnormality or closed-head injury. Please note that all CT scans at this facility use dose modulation, iterative reconstruction, and/or weight-based dosing when appropriate to reduce radiation dose to as low as reasonably achievable. Dictated by Dannie Burnette MD @ 09/27/2022 7:34:27 PM (Electronically Signed)
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
[2022-09-27 19:06] VITALS: BP 130/79; PULSE 71; RESP 16; O2SAT 98
[2022-09-27] MEDS: HYDROCODONE-ACETAMIN 5-325 MG 1 TAB PO (19:42)
[2022-09-27 19:57] VITALS: BP 127/90; PULSE 70; RESP 16
== END 2022-09-27 19:58 | disposition home or self-care (01) ==
PROVIDERS: Emergency Provider Emergency Medicine Emergency Medical Services
DX: S43.402A Unspecified sprain of left shoulder joint, initial encounter (principal); V43.52XA Car driver injured in collision with other type car in traffic accident, initial encounter
CPT/HCPCS: 70450; 72125; 73030; 76604; 76705; 93308; 99284; 99291; A9270; G0390

== ENCOUNTER 2023-06-30 06:15 | Day surgery (SDC) | payer MEDICARE, SELFPAY ==
[2023-06-30] VITALS (12 sets, daily range): BP systolic 111–133; BP diastolic 55–83; PULSE 62–93; RESP 15–18; TEMP 36.1–36.6; O2SAT 93–98; BMI 34.4
--- OUTSIDE RECORDS SUMMARY | 2023-06-30 06:17 | XMS_ITS | Encounter Summary ---
Author Name Unknown Organization [facility] Address [address] [place] [id number] Care Team Providers Care Stave Jointer Name Role Phone Preeti Bravo MD Unavailable No Ref-Primary, Physician Primary Care Provider Reason for Visit * Reason Comments Ultrasound US-confirm chorionic ity Genetic Counseling GC-twin , A MA Encounter Details Date Type Department Care Team (Late st Contact Info) Description 10/28/2021 PRE VISIT [facility] [place] [address] [place] [address] Paris White RN Ultrasound (US-confirm chorionicity); Genetic Counseling (GC-twin , AMA) Social History Tobacco Use Types Packs/Day Years Used Date Smoking Tobacco: Never Assessed Comments Yes Sex and Gender Information Value Date Recorded Sex Assigned at Not on file Gender Identity Not on file Sexual Orientation Not on file documented as of this encounter Plan of Treatment Not on file documented as of this encounter Visit Diagnoses Not on filedocumented in this encounter Care Teams Stave Jointer Relationship Specialty Start Date End Date No Ref-Primary, Physician PCP - General 04/05/22 Preeit Bravo MD [address] [place] [address] [address] [place], [place] [id number] Assigned OBGYN Provider 11/11/21 documented as of this encounter
--- OUTSIDE RECORDS SUMMARY | 2023-06-30 06:17 | XMS_ITS | Clinical Summary ---
Author Name Unknown Organization [facility] [place] [address] Care Team Providers Care Product Engineering Manager Name Role Phone Clinic, No Pcp Or Primary Care Provider Unavaila ble Allergies Active Allergy Reactions Criticality Noted Date Comments Chicken Derived Anaphylaxis High 04/12/2006 Seasoning/ breading on chicken Pork/Porcine Containing Products Anaphylaxis High 04/12/2006 Seasoning in pork ( sausage) Medications Medication Sig Dispensed Refills Start Date End Date Status ZYRTEC 10 MG TAB take 1 tablet (10 mg) by oral route once daily 0 08/07/2007 Active FLUoxetine (PROZAC) 20 mg capsuleIndications:Dep ression with anxiety Take 1 capsule by mouth every morning. Take with 10 mg dose for a total of 30 mg daily. 90 capsule 1 02/24/2016 Active desogestrel-ethinyl estradiol 0.15-30 mg-mcg (ORTHO-CEPT, 28,) tabletIndications:Gene ral counseling for prescription of oral contraceptives Take 1 tablet by mouth once daily. 3 Package 3 02/24/2016 Active acyclovir (ZOVIRAX) 800 mg tabletIndications:Herp es simplex without mention of complication Take 1 tablet by mouth 5 times daily. 35 tablet 4 02/24/2016 Active sertraline (ZOLOFT) 100 mg tablet Take 100 mg by mouth once daily. Active Active Problems Problem Noted Date Diagnosed Date Depression with anxiety 12/20/2013 ASCUS with positive high risk HPV cervical 05/15 Overview: 05/2010. Plan: Pap/HPV 02/2019 Unspecified asthma(493.90) 04/25/2008 Moderate dysplasia of cervix 04/22/2006 Overview: Colposcopy x3 BALJINDER ll on colpo 03/2005 BALJINDER l on colpo 07/22/2005 Neg on colpo 07/02/10 NIL pap/neg HPV testing on 10/10/13 Therefore paps q3 years Allergic rhinitis due to animal (cat) (dog) hair and dander 04/12/2006 BALJINDER II (cervical intraepithelial neoplasia II) 0 04/01/2005 Overview: 04/01/2005 Cassandra: BALJINDER II ASCCP recommends: History of CIN2 - CIN3: Cotesting every 3 years for 20 years. Plan: Pap/HPV 02/2019 Low grade squamous intraepit helial lesion (LGSIL) at risk for high grade squamous intraepithelial lesion (HGSIL) on cytologic smear of cervix 03/04/2005 Overview: 03/04/2005 Cannot exclude HSIL Resolved Problems Problem Noted Date Diagnosed Date Resolved Date Supervision of normal first 06/18/2008 04/23/2009 Major depressive disorder, s laura episode, moderate 09/12/2007 01/27/2012 Allergic rhinitis, cause unspecified 04/12/2006 01/27/2012 Immunizations Name Administration Dates Next Due Tdap 03/12/2013 Family History Medical History Relation Name Comments Good Health Father Cancer Maternal Grandmother pancrea tic cancer Diabetes Maternal Grandmother Hyperlipidemia Maternal Grandmother Good Health Mother Cancer-breast Other maternal great aunt Cancer-breast Paternal Grandmother Hyperlipidemia Sister Relation Name Status Comments Father Maternal Grandmother Mother Other Paternal Grandmother Sister Social History Tobacco Use Types Packs/Day Years Used Date Smoking Tobacco: Former Cigarettes Q uit: 02/15/2004 Smokeless Tobacco: Never Tobacco Cessation:Counseling Given: Not Answered Alcohol Use Standard Drinks/Week Comments Yes 0 (1 standard drink = 0.6 oz pur e alcohol) 1x/month Sex and Gender Information Value Date Recorded Sex Assigned at Not on file Gender Identity Not on file Sexual Orientation Not on file Obstetrics History Para Term AB IAB SAB Ectopic Multiple Livin g Live Births 4 1 1 3 3 1 Date Outcome GA Total Labor Labor/2nd/3rd Weight Sex Delivery Anes PTL Shirlene A1 A5 Name Cl in Term 41w 0d 4.68 kg (10 lb 5 oz) M SAB 4w0 d SAB 4w0 d SAB 4w0 d Last Filed Vital Signs Vital Sign Reading Time Taken Comments Blood Pressure 131/79 06/11/2022 1:19 PM CDT Pulse 66 06/11/2022 1:19 PM CDT Temperature 36.6 ??C (97.9 ??F) 06/11/2022 1:19 PM CD T Respiratory Rate 16 06/11/2022 2:30 PM CDT Oxygen Saturation 100% 06/11/2022 1:19 PM CDT Inhaled Oxygen Concentration - - Weight 93.1 kg (205 lb 4 oz) 06/10/2022 2:56 PM CDT Height 170.2 cm (5' 7) 06/10/2022 2:56 PM CDT Body Mass Index 32.15 06/10/2022 2:56 PM CDT Plan of Treatment Health Maintenance Due Date Last Done Comments BMI (ht and wt on same day) for age 18+ 02/23/2017 02/24/2016, 11/04/2015, 05/30/2015 Depression screening for age 12+ 02/23/2017 02/24/2016, 10/23/2015, 04/22/2015 COVID-19 vaccine series (2022- season) 2022 Tetanus booster 03/12/2023 03/12/2013 Influenza for age 9-49 10/16/2023 Pap test for age 21-65 06/14/2025 3, 06/14/2022, 10/06/2021, Additional history exists Hepatitis C screening for age 18-79 Completed 05/06/2006 HIV for age 15-65 Completed 03/27/2008 Tdap Completed 03/12/2013 Pneumococcal series for age 6-64 Aged Out No longer eligible based on patient's age to complete this topic Procedures Procedure Name Priority Date/Time Associated Diagnosis Comments HPV THIN PREP Routine 06/14/2022 9:30 AM CDT ANTI HIV 1/2 Routine 03/27/2008 10:12 AM BAND SPLITTER Supervision of Normal First ANTI HCV Timed 05/06/2006 3:27 PM CDT from Last 3 Months or Most Recently Relevant to Health Maintenance Results * (ABNORMAL) HPV HIGH RISK (06/14/2022 9:30 AM CDT) TYPE 16 Negative Negative 06/17/2022 1:36 PM CDT [facility] TYPE 18 Negative Negative 06/17/2022 1:36 PM CDT [facility] OTHER HIGH RISK TYPES Positive(A) Negative 06/17/2022 1:36 PM CDT [facility] Other (Cervical) 06/14/2022 9:30 AM CDT 06/15/2022 2:28 PM CDT Narrative [facility] - 06/17/2022 1:36 PM CDT Specimen is positive for the DNA of any one of, or combination of, the following high risk HPV types: 31, 33, 35, 39, 45, 51, 52, 56, 58, 59, 66, 68. HPV types 16 and 18 DNA were undetectable or below the pre-set threshold. ? Methodology: Felecia Farnaz 4800 HPV Test Lana Claros MD MICROBIOLOGY [facility] [address] [place] [address], * HIV (03/27/2008 10:12 AM BAND SPLITTER) ANTI HIV 1/2 Non-reacti ve [facility] Blood specimen (specimen) BLOOD SPECIMEN / Unknown 03/27/2008 10:12 AM BAND SPLITTER 03/27/2008 10:01 AM BAND SPLITTER Yuridia Armijo NP SEND OUTS [facility] [place]NAL ZIP [id number] [place] [address] * ANTI HCV (05/06/2006 3:27 PM CDT) ANTI HCV Non-reactiv e [facility] 05/06/2006 3:27 PM CDT 05/07/2006 3:19 PM CDT Narrative [facility] - 05/11/2006 12:35 PM CDT Testing Performed By [place], [place] Kelsi Juarez MD [facility]END OUTS [facility] [address] [place] [address] from Last 3 Months or Most Recently Relevant to Health Maintenance Advance Directives * Full Code (Latest Code Status on File) Date Activated Date Inactivated Comments 06/11/2022 11:04 AM 06/12/2022 2:28 AM Question Answer Comments Code Status Discussion: Unable to Assess Preferences, Provider to review later * Full Code Date Activated Date Inactivated Comments 06/11/2022 11:04 AM 06/11/2022 11:04 AM Question Answer Comments Code Status Discussion: Unable to Assess Preferences, Provider to review later Care Teams Product Engineering Manager Relationship Specialty Start Date End Date Clinic, No Pcp Or . PCP - General 09/17/16
--- OUTSIDE RECORDS SUMMARY | 2023-06-30 06:17 | XMS_ITS | Referral Summary ---
Author Name Unknown Organization [facility] Address [address] [place] [address] Care Team Providers Care Adult Health Clinical Nurse Specialist Name Role Phone No Ref-Primary, Physician Primary Care Provider Allergies Active Allergy Reactions Criticality Noted Date Comments Chicken-Derived Products (Egg) 04/12 Pork (Porcine) Protein 04/12/2006 Medications Medication Sig Dispensed Refills Start Date End Date Status Vit-Fe Fumarate-FA ( MULTIVITAMIN W/IRON) 27-0.8 MG tablet Take 1 tablet by mouth daily Active alum & mag hydroxide-simethicon e (MAALOX) 200-200-20 MG/5ML SUSP suspension Take 30 mLs by mouth once as needed for indigestion Active cetirizine (ZYRTEC) 10 MG tablet Take 10 mg by mouth daily Active ferrous sulfate 220 (44 Fe) MG/5ML ELIX Take 220 mg by mouth daily Active oxyCODONE (ROXICODONE) 5 MG tabletIndications:Ac vidhi cholecystitis Take 1-2 tablets (5-10 mg) by mouth every 3 hours as needed for severe pain (7-10) 10 tablet 04/07/2022 Active acetaminophen (TYLENOL) 500 MG tablet Take 500-1,000 mg by mouth every 6 hours as needed for mild pain or pain Active Social History Tobacco Use Types Packs/Day Years Used Date Smoking Tobacco: Former Cigarettes Q uit: 2008 Smokeless Tobacco: Never Tobacco Cessation:Counseling Given: Not Answered Alcohol Use Standard Drinks/Week Comments Not Currently 0 (1 standard drink = 0.6 oz pur e alcohol) Adolescent Education Answer Date Record ed Getting School Help Needed Not on file 11/14 Sex and Gender Information Value Date Recorded Sex Assigned at Not on file Gender Identity Not on file Sexual Orientation Not on file Last Filed Vital Signs Vital Sign Reading Time Taken Comments Blood Pressure 123/73 04/19/2022 7:00 PM ASSOCIATE CONSULTING ENGINEER Pulse - - Temperature 36.8 ??C (98.2 ??F) 04/19/2022 7:00 PM CS T Respiratory Rate 18 04/19/2022 7:00 PM ASSOCIATE CONSULTING ENGINEER Oxygen Saturation 96% 04/04/2022 11:41 PM ASSOCIATE CONSULTING ENGINEER Inhaled Oxygen Concentration - - Weight - - Height - - Body Mass Index - - Plan of Treatment Not on file Procedures Procedure Name Priority Date/Time Associated Diagnosis Comments COMPREHENSIVE METABOLIC PANEL STAT 04/19/2022 8:04 PM ASSOCIATE CONSULTING ENGINEER HCL PAP SMEAR Routine 07/09/1998 1:18 PM CDT Gynecologic Examination from Last 3 Months or Most Recently Relevant to Health Maintenance Results * (ABNORMAL) Comprehensive metabolic panel (04/19/2022 8:04 PM ASSOCIATE CONSULTING ENGINEER) Sodium 135(L) 136 - 145 mmol/L 04/19/2022 8:[address] [facility] Potassium 4.3 3.4 - 5.3 mmol/L 04/19/2022 8:[address] [facility] Chloride 101 98 - 107 mmol/L 04/19/2022 8:[address] [facility] Carbon Dioxide (CO2) 22 22 - 29 mmol/L 04/19/2022 8:[address] [facility] Anion Gap 12 7 - 15 mmol/L 04/19/2022 8:[address] [facility] Urea Nitrogen 5.3(L) 6.0 - 20.0 mg/dL 04/19/2022 8:[address] [facility] Creatinine 0.87 0.51 - 0.95 mg/dL 04/19/2022 8:[address] [facility] Calcium 8.8 8.6 - 10.0 mg/dL 04/19/2022 8:[address] [facility] Glucose 79 70 - 99 mg/dL 04/19/2022 8:[address] [facility] Alkaline Phosphatase 281(H) 35 - 104 U/L 04/19/2022 8:[address] [facility] AST 59(H) 10 - 35 U/L 04/19/2022 8:36 PM [facility] ALT 55(H) 10 - 35 U/L 04/19/2022 8:36 PM [facility] Protein Total 6.0(L) 6.4 - 8.3 g/dL 04/19/2022 8:36 PM [facility] Albumin 3.4(L) 3.5 - 5.2 g/dL 04/19/2022 8:36 PM [facility] Bilirubin Total 1.0 <=1.2 mg/dL 04/19/2022 8:36 PM [facility] GFR Estimate 88 >60 mL/min/1.7 3m2 04/19/2022 8:36 PM [facility] Comment:eGFR calculated 2020 CKD-EPI equation. Blood STRUCTURE OF LEFT UPPER LIMB / Unknown Venipuncture / Unknown 04/19/2022 8:04 PM ASSOCIATE CONSULTING ENGINEER 04/19/2022 8:09 PM ASSOCIATE CONSULTING ENGINEER Sonja Cummings MD LAB - BLOOD [facility] Lab [address] [facility] (1st floor, no room number) [place] [address], [facility] [phone] * PAP SMEAR (07/09/1998 1:18 PM CDT) Unlabelled DNR [facility] Biopsy Sent DNR [facility] Source VAG,CERV,E NDOCERV [facility] LMP POST [facility] PARA 3 [facility] 2 [facility] Clinical History DNR [facility] Therapy DNR [facility] Last Pap Diagnosis WITHIN NORMAL LIMITS [facility] PAP Date [id number] [facility] Specimen # DNR [facility] Tissue DNR [facility] Tissue Date DNR [facility] Statement of Adequacy [facility] Comment: SATISFACTORY FOR INTERPRETATION POST MENOPAUSAL PATIENT. ??NO ENDOCERVICAL CELLS SEEN. General Categorization DNR [facility] Descriptive Diagnosis [facility] Comment: WITHIN NORMAL LIMITS ATROPHIC CELL PATTERN Recommendations DNR [facility] DNR 114,,,,,, [facility] DNR DNR [facility] DNR DNR [facility] DNR DNR [facility] . [facility] Comment: ?PAP SMEARS ARE SUBJECT TO BOTH FALSE NEGATIVE AND FALSE ? POSITIVE RESULTS EVIDENCED BY DATA PUBLISHED IN THE ? MEDICAL LITERATURE. ??YOUR PATIENT'S RESULT SHOULD BE ? INTERPRETED IN THIS CONTEXT, TOGETHER WITH THE PATIENT'S ? HISTORY AND CLINICAL FINDINGS. TESTING LOCATION ? THIS [facility] ? [address] [facility]. [id number] ? PHONE NUMBERS FOR CYTOLOGY INQUIRES, INCLUDING SLIDE REQUESTS ? EXT. [id number] ?? EXT. [id number] 07/07/1998 Kenzie Rivas MD LABORATORY [facility] from Last 3 Months or Most Recently Relevant to Health Maintenance Advance Directives For more information, please contact: [phone] * Full Code (Latest Code Status on File) Date Activated Date Inactivated Comments 04/05/2022 8:00 AM 04/07/2022 3:10 PM All basic an d advanced life-sustaining interventions are performed as appropriate Question Answer Comments Code status determined by: Discussion with elver kumar/ legal decision maker Care Teams Adult Health Clinical Nurse Specialist Relationship Specialty Start Date End Date No Ref-Primary, Physician PCP - General 04/05/22
--- OUTSIDE RECORDS SUMMARY | 2023-06-30 06:17 | XMS_ITS | Clinical Summary ---
Author Name Unknown Organization [facility] Address [address] [place] [address] Care Team Providers Care Tie Carrier Name Role Phone No Ref-Primary, Physician Primary [...] Comments Blood Pressure 123/73 04/19/2022 7:00 PM SYSTEM CONSULTANT Pulse - - Temperature 36.8 ??C (98.2 ??F) 04/19/2022 7:00 PM CS T Respiratory Rate 18 04/19/2022 7:00 PM SYSTEM CONSULTANT Oxygen Saturation 96% 04/04/2022 11:41 PM SYSTEM CONSULTANT Inhaled Oxygen Concentration - - Weight - - Height - - Body Mass Index - - Plan of Treatment Health Maintenance Due Date Last Done Comments ADVANCE CARE PLANNING 1985 ANNUAL REVIEW OF HM ORDERS 1985 YEARLY PREVENTIVE VISIT 1985 HIV SCREENING 2000 HEPATITIS C SCREENING 11/24/2003 HEPATITIS B IMMUNIZATION (1 of 3 - 19+ 3-dose series) 2004 COVID-19 Vaccine ( season) 2022 PHQ-2 (once per calendar year) 2023 INFLUENZA VACCINE (Season Ended) 2023 12/11/2008, 12/11/2008 PAP 10/06/2024 10/06/2021, 09/15, 11/25/2020, Additional history exists GLUCOSE 04/19/2025 04/19/2022, 03/18, 04/05/2022 DTAP/TDAP/TD IMMUNIZATION (5 - Td or Tdap) 03/16/2032 03/16/2022, 03/30/2013, 03/12/2013, Additional history exists HPV IMMUNIZATION Aged Out No longer e ligible based on patient's age to complete this topic IPV IMMUNIZATION Aged Out No longer e ligible based on patient's age to complete this topic MENINGITIS IMMUNIZATION Aged Out No l onger eligible based on patient's age to complete this topic Pneumococcal Vaccine: Pediatrics (0 to 5 Years) and At-Risk Patients (6 to 64 Years) Aged Out No longer eligible based on patient's age to complete this topic RSV MONOCLONAL ANTIBODY Aged Out No l onger eligible based on patient's age to complete this topic Procedures Procedure Name Priority Date/Time Associated Diagnosis Comments COMPREHENSIVE METABOLIC PANEL STAT 04/19/2022 8:04 PM SYSTEM CONSULTANT HCL PAP SMEAR Routine 07/09/1998 1:18 PM CDT Gynecologic Examination from Last 3 Months or Most Recently Relevant to Health Maintenance Results * (ABNORMAL) Comprehensive metabolic panel (04/19/2022 8:04 PM SYSTEM CONSULTANT) Sodium 135(L) 136 - 145 mmol/L 04/19/2022 8:36 PM [facility] Potassium 4.3 3.4 - 5.3 mmol/L 04/19/2022 8:36 PM [facility] Chloride 101 98 - 107 mmol/L 04/19/2022 8:36 PM [facility] Carbon Dioxide (CO2) 22 22 - 29 mmol/L 04/19/2022 8:36 PM [facility] Anion Gap 12 7 - 15 mmol/L 04/19/2022 8:36 PM [facility] Urea Nitrogen 5.3(L) 6.0 - 20.0 mg/dL 04/19/2022 8:36 PM [facility] Creatinine 0.87 0.51 - 0.95 mg/dL 04/19/2022 8:36 PM [facility] Calcium 8.8 8.6 - 10.0 mg/dL 04/19/2022 8:36 PM [facility] Glucose 79 70 - 99 mg/dL 04/19/2022 8:36 PM [facility] Alkaline Phosphatase 281(H) 35 - 104 U/L 04/19/2022 8:36 PM [facility] AST 59(H) 10 - 35 U/L 04/19/2022 8:36 PM [facility] ALT 55(H) 10 - 35 U/L 04/19/2022 8:36 PM [facility] Protein Total 6.0(L) 6.4 - 8.3 g/dL 04/19/2022 8:36 PM [facility] Albumin 3.4(L) 3.5 - 5.2 g/dL 04/19/2022 8:36 PM [facility] Bilirubin Total 1.0 <=1.2 mg/dL 04/19/2022 8:36 PM [facility] GFR Estimate 88 >60 mL/min/1.7 3m2 04/19/2022 8:36 PM [facility] Comment:eGFR calculated usin g 1 CKD-EPI equation. Blood STRUCTURE OF LEFT UPPER LIMB / Unknown Venipuncture / Unknown 04/19/2022 8:04 PM SYSTEM CONSULTANT 04/19/2022 8:09 PM SYSTEM CONSULTANT Sonja Cumminsg MD LAB - BLOOD [facility] Acute Care Lab [address] [facility] Lab (1st floor, no room number) [place] [address], [facility] [phone] * PAP SMEAR (07/09/1998 1:18 PM CDT) Unlabelled DNR [facility] Biopsy Sent DNR [facility] Source VAG,CERV,E NDOCERV [facility] LMP POST [facility] PARA 3 [facility] 2 [facility] Clinical History DNR [facility] Therapy DNR [facility] Last Pap Diagnosis WITHIN NORMAL LIMITS [facility] PAP Date [id number] [facility] Specimen # DNR [facility] Tissue DNR [facility] Tissue Date DNR [facility] Statement of Adequacy [facility] Comment: SATISFACTORY FOR INTERPRETATION POST MENOPAUSAL PATIENT. ??NO ENDOCERVICAL CELLS SEEN. General Categorization DNR [facility] Descriptive Diagnosis [facility] Comment: WITHIN NORMAL LIMITS ATROPHIC CELL PATTERN Recommendations DNR [facility] DNR 114,,,,,, [facility] DNR DNR [facility] DNR DNR [facility] DNR DNR [facility] . [facility] Comment: ?PAP SMEARS ARE SUBJECT TO BOTH FALSE NEGATIVE AND FALSE ? POSITIVE RESULTS EVIDENCED BY DATA PUBLISHED IN THE ? MEDICAL LITERATURE. ??YOUR PATIENT'S RESULT SHOULD BE ? INTERPRETED IN THIS CONTEXT, TOGETHER WITH THE PATIENT'S ? HISTORY AND CLINICAL FINDINGS. TESTING LOCATION ? THIS TEST WAS PERFORMED AT [facility] ? [address] [facility]. [id number] ? PHONE NUMBERS FOR CYTOLOGY INQUIRES, INCLUDING SLIDE REQUESTS ? EXT. [id number] ?? EXT. [id number] 07/07/1998 Kenzie Rivas MD LABORATORY [facility] from Last 3 Months or Most Recently Relevant to Health Maintenance Advance Directives For more information, please contact: [phone] * Full Code (Latest Code Status on File) Date Activated Date Inactivated Comments 04/05/2022 8:00 AM 04/07/2022 3:10 PM All basic an d advanced life-sustaining interventions are performed as appropriate Question Answer Comments Code status determined by: Discussion with elver kumar/ legal decision maker Care Teams Tie Carrier Relationship Specialty Start Date End Date No Ref-Primary, Physician PCP - General 04/05/22
[2023-06-30] MEDS: LACTATED RINGERS 1000 ML 1,000 ML 100 ML IV (06:40)
[2023-06-30] MEDS: SODIUM CHLORIDE 0.9 % (FLUSH) 10 ML SYRINGE IVF (06:40)
[2023-06-30 06:59] LABS: Hemoglobin* 13.6 gm/dL (12.0-16.0)
[2023-06-30 07:01] LABS: Ur HCG Qualitative* Negative (Negative)
--- NOTE | 2023-06-30 07:18 | W.PM.H&PU ---
History & Physical Update History & Physical Update H&P Reviewed and patient assessed: No changes noted
[2023-06-30] MEDS: BUPIVACAINE 0.25% 30 ML INJECTION (08:00)
--- NOTE | 2023-06-30 08:15 | W.ANESCHARGE ---
Anesthesia Charges Start Date/Time Anesthesia Start Date: 06/30/23 Anesthesia Start Time: 07:21 Stop Date/Time Anesthesia Stop Date: 06/30/23 Anesthesia Stop Time: 08:56
--- NOTE | 2023-06-30 09:47 | W.ANESCHARGE ---
Anesthesia Charges Start Date/Time Anesthesia Start Date: 06/30/23 Anesthesia Start Time: 07:21 Stop Date/Time Anesthesia Stop Date: 06/30/23 Anesthesia Stop Time: 08:56
--- NOTE | 2023-06-30 10:23 | P.GYNPRC_ITS ---
Procedure Note Date of procedure: 06/30/23 Will [facility] bill your pro fee for this procedure?: Yes Pre-op diagnosis: Undesired fertility Post-op diagnosis: Endometriosis Undesired fertility Procedure: Laparoscopy with fulguration and excision of endometriosis, bilateral salpingectomy Anesthesia: GETA Complications: None Surgeon: Lana Claros MD Machine Designer: Karissa Koehler Estimated blood loss (mL): 5 IV fluids (mL): 900 Urine Output (mL): 300 Pathology: specimen obtained, sent to pathology (1. Peritoneal biopsies. 2. Bilateral fallopian tubes ) Condition: stable Disposition: same day Findings: 1. Upon pelvic exam under anesthesia, the cervix and vagina were normal in appearance. Uterus was mobile and anteverted, of normal size and texture. There were no palpable adnexal masses. 2. Upon laparoscopy, survey of the upper abdomen revealed a normal appearance to the inferior edge of the liver and stomach. Bowels were grossly normal appearance. There was at least 1 spot of suspected endometriosis in the omentum. Survey of the pelvis revealed normal appearance to the uterus. There was scarring along the bladder reflection, consistent with previous cesareans. There were clusters of deep blue-black 1-2 mm nodules noted in the peritoneum overlying the bladder reflection and along the anterior leaf of the broad ligament bilaterally. There were smaller, clear, vesicular lesions noted diffusely in the posterior cul-de-sac. Bilateral tubes and ovaries were normal in appearance. Procedure Description: Patient was taken to the operating room with IV running. She was positioned in dorsal lithotomy position with her legs fully supported in Yellofin stirrups. General anesthesia was administered. She was prepped and draped in the usual sterile fashion. Bimanual exam was performed for the above-noted findings. Speculum was inserted. Cervix was visualized with IUD string noted. A single- toothed uterine manipulator was inserted through the cervix into the lower uterine segment, and affixed to the anterior cervical lip. Speculum was removed. Mosley catheter was placed. Patient's legs were placed in neutral position. Attention was turned to patient's abdomen. The infraumbilical area was infiltrated with small amount of Marcaine. An infraumbilical incision was made with a scalpel and carried through to the underlying layer of fascia with a hemostat. The 5 mm Fios Kii trocar was assembled with laparoscope within, and insufflator attached. While tenting up the abdomen manually, the trocar was passed through the anterior abdominal wall into the peritoneal cavity. Trocar was removed. Pneumoperitoneum was achieved. Survey of abdomen and pelvis revealed the above-noted findings. Two additional port sites were created. The first was in the patient's left lower quadrant, just superior medial to the left ASIS. The second was a hand's breath superior to and slightly medial to the first. Each was infiltrated with small amount of Marcaine prior to incision. A 5 mm incision was made at each site, making sure the large vessels were out of harm's way. A 5 mm Fios Kii port was inserted at each site, under direct visualization and without complication. The balloon on each of the three ports was inflated, holding each in place. Laparoscopic [place] and coleen were used to excise the above described endometriotic implants in the anteriorly for the broad ligament and the peritoneum of the bladder reflection. Hemostasis was noted at the sites. The macule that was visualized within the omentum was treated with monopolar cautery, as were numerous vesicular lesions in the posterior cul-de-sac. The left fallopian tube was held away from the pelvic sidewall and the blood supply was divided with the Thunderbeat device. Dissection was carried laterally to medially through the mesosalpinx until it reached the left cornua, and left tube was cauterized and transected at this site. This procedure was repeated on the right side and both tubes were sent to pathology. Hemostasis was noted. The balloon tip of each port site was deflated. All instruments were removed and peritoneum was released. Ports were released. The skin of each port site was closed with a subcuticular stitch of 4-0 Monocryl. Surgical glue was applied above this. The patient's legs were placed back in lithotomy position. The uterine manipulator was removed. Speculum exam was performed, revealing continuing presence of IUD string and no bleeding. Speculum was removed. Mosley catheter was removed. Patient tolerated procedure well and was taken to recovery area in stable condition. Prior to leaving the operating room, a postoperative debrief was performed, in which I confirmed my request to send peritoneal biopsies and bilateral fallopian tubes to pathology.
== END 2023-06-30 10:18 | disposition home or self-care (01) ==
PROVIDERS: Visit Provider Obstetrics & Gynecology
PROC: (CPT 58661; principal; 2023-06-30 07:15)
DX: Z30.2 Encounter for sterilization (principal); N80.329 Endometriosis of the posterior cul-de-sac, unspecified depth; N80.203 Endometriosis of bilateral fallopian tubes, unspecified depth
CPT/HCPCS: 58661; 58662; 49321; 00840; 36415; 81025; 85018; 86850; 86900; 86901; 88302; 88305; J0330; J0665; J1100; J1170; J1885; J2250; J2405; J2704; J3010; J7120

== ENCOUNTER 2023-08-23 13:59 | Outpatient (CLI) | payer MEDICARE, SELFPAY ==
--- OUTSIDE RECORDS SUMMARY | 2023-08-23 14:02 | XMS_ITS | Clinical Summary ---
Author Organization [facility] Address [address] [place] [address] Care Team Providers Care Ophthalmic Surgical Assistant Name Role Phone No Ref-Primary, Physician Primary [...] daily Active oxyCODONE (ROXICODONE) 5 MG tabletIndications:Ac chenega cholecystitis Take 1-2 tablets (5-10 mg) by [...] Comments Blood Pressure 123/73 04/19/2022 7:00 PM [facility] Pulse - - Temperature 36.8 ??C (98.2 ??F) 04/19/2022 7:00 PM CS T Respiratory Rate 18 04/19/2022 7:00 PM [facility] Oxygen Saturation 96% 04/04/2022 11:41 PM [facility] Inhaled Oxygen Concentration - - Weight - [...] (once per calendar year) 2023 INFLUENZA VACCINE (#1) 2023 12/11/2008, 2008 PAP 10/06/2024 10/06/2021, 09/15, 11/25/2020, Additional history [...] COMPREHENSIVE METABOLIC PANEL STAT 04/19/2022 8:04 PM [facility] from Last 3 Months or Most Recently Relevant to Health Maintenance Results * (ABNORMAL) Comprehensive metabolic panel (04/19/2022 8:04 PM [facility]) Sodium 135(L) 136 - 145 mmol/L 04/19/2022 8:36 PM [facility] Potassium 4.3 3.4 - 5.3 mmol/L 04/19/2022 8:36 PM [facility] Chloride 101 98 - 107 mmol/L 04/19/2022 8:36 PM [facility] Carbon Dioxide (CO2) 22 22 - 29 mmol/L 04/19/2022 8:36 PM [facility] Anion Gap 12 7 - 15 mmol/L 04/19/2022 8:36 PM [facility] Urea Nitrogen 5.3(L) 6.0 - 20.0 mg/dL 04/19/2022 8:36 PM [facility] Creatinine 0.87 0.51 - 0.95 mg/dL 04/19/2022 8:36 PM [facility] Calcium 8.8 8.6 - 10.0 mg/dL 04/19/2022 8:36 PM [facility] Glucose 79 70 - 99 mg/dL 04/19/2022 8:36 PM [facility] Alkaline Phosphatase 281(H) 35 - 104 U/L 04/19/2022 8:36 PM [facility] AST 59(H) 10 - 35 U/L 04/19/2022 8:36 PM [facility] ALT 55(H) 10 - 35 U/L 04/19/2022 8:36 PM [facility] Protein Total 6.0(L) 6.4 - 8.3 g/dL 04/19/2022 8:36 PM [facility] Albumin 3.4(L) 3.5 - 5.2 g/dL 04/19/2022 8:36 PM [facility] Bilirubin Total 1.0 <=1.2 mg/dL 04/19/2022 8:36 PM [facility] GFR Estimate 88 >60 mL/min/1.7 3m2 04/19/2022 8:36 PM [facility] Comment:eGFR calculated usin 2020 CKD-EPI equation. Blood STRUCTURE OF LEFT UPPER LIMB / Unknown Venipuncture / Unknown 04/19/2022 8:04 PM [facility] 04/19/2022 8:09 PM [facility] Sonja Cummings MD LAB - BLOOD [facility] Acute Care Lab [address] Lab (1st floor, no room number) [place] [address], [facility] [phone] from Last 3 Months or Most Recently Relevant to Health Maintenance Advance Directives For more information, please contact: [phone] * Full Code (Latest Code Status on File) Date Activated Date Inactivated Comments 04/05/2022 8:00 AM 04/07/2022 3:10 PM All basic an d advanced life-sustaining interventions are performed as appropriate Question Answer Comments Code status determined by: Discussion with elver kumar/ legal decision maker Care Teams Ophthalmic Surgical Assistant Relationship Specialty Start Date End Date No Ref-Primary, Physician PCP - General 04/05/22
--- OUTSIDE RECORDS SUMMARY | 2023-08-23 14:02 | XMS_ITS | Referral Summary ---
Author Organization [place] Address [address] [place] [address] Care Team Providers Care Overedger Name Role Phone No Ref-Primary, Physician Primary [...] daily Active oxyCODONE (ROXICODONE) 5 MG tabletIndications:Ac [place] cholecystitis Take 1-2 tablets (5-10 mg) by [...] Comments Blood Pressure 123/73 04/19/2022 7:00 PM RN PICU Pulse - - Temperature 36.8 ??C (98.2 ??F) 04/19/2022 7:00 PM CS T Respiratory Rate 18 04/19/2022 7:00 PM RN PICU Oxygen Saturation 96% 04/04/2022 11:41 PM RN PICU Inhaled Oxygen Concentration - - Weight - - Height - - Body Mass Index - - Plan of Treatment Not on file Procedures Procedure Name Priority Date/Time Associated Diagnosis Comments COMPREHENSIVE METABOLIC PANEL STAT 04/19/2022 8:04 PM RN PICU from Last 3 Months or Most Recently Relevant to Health Maintenance Results * (ABNORMAL) Comprehensive metabolic panel (04/19/2022 8:04 PM RN PICU) Sodium 135(L) 136 - 145 mmol/L 04/19/2022 8:36 PM [facility] Potassium 4.3 3.4 - 5.3 mmol/L 04/19/2022 8:36 PM [facility] Chloride 101 98 - 107 mmol/L 04/19/2022 8:36 PM [facility] Carbon Dioxide (CO2) 22 22 - 29 mmol/L 04/19/2022 8:36 PM [facility] Anion Gap 12 7 - 15 mmol/L 04/19/2022 8:36 PM [facility] Urea Nitrogen 5.3(L) 6.0 - 20.0 mg/dL 04/19/2022 8:36 PM [facility] Creatinine 0.87 0.51 - 0.95 mg/dL 04/19/2022 8:36 PM [facility] Calcium 8.8 8.6 - 10.0 mg/dL 04/19/2022 8:36 PM [facility] Glucose 79 70 - 99 mg/dL 04/19/2022 8:36 PM [facility] Alkaline Phosphatase 281(H) 35 - 104 U/L 04/19/2022 8:36 PM [facility] AST 59(H) 10 - 35 U/L 04/19/2022 8:36 PM [facility] ALT 55(H) 10 - 35 U/L 04/19/2022 8:36 PM RN PICU LABORATORY Protein Total 6.0(L) 6.4 - 8.3 g/dL 04/19/2022 8:36 PM RN PICU LABORATORY Albumin 3.4(L) 3.5 - 5.2 g/dL 04/19/2022 8:36 PM RN PICU LABORATORY Bilirubin Total 1.0 <=1.2 mg/dL 04/19/2022 8:36 PM RN PICU LABORATORY GFR Estimate 88 >60 mL/min/1.7 3m2 04/19/2022 8:36 PM RN PICU LABORATORY Comment:eGFR calculated usin 2020 CKD-EPI equation. Blood STRUCTURE OF LEFT UPPER LIMB / Unknown Venipuncture / Unknown 04/19/2022 8:04 PM RN PICU 04/19/2022 8:09 PM RN PICU Sonja Cummings MD LAB - BLOOD EVELIA LORD [facility] Organization Address City/State/ZIP Co de Phone Number LABORATORY [facility] Acute Care Lab [address] [facility] Lab (1st floor, no room number) [place] [address], [facility] [phone] from Last 3 Months or Most Recently Relevant to Health Maintenance Advance Directives For more information, please contact: [phone] * Full Code (Latest Code Status on File) Date Activated Date Inactivated Comments 04/05/2022 8:00 AM 04/07/2022 3:10 PM All basic an d advanced life-sustaining interventions are performed as appropriate Question Answer Comments Code status determined by: Discussion with patie nt/ legal decision maker Care Teams Overedger Relationship Specialty Start Date End Date No Ref-Primary, Physician PCP - General 04/05/22
--- OUTSIDE RECORDS SUMMARY | 2023-08-23 14:02 | XMS_ITS | Encounter Summary ---
Author Organization [place] Address [address] [place] [address] Care Team Providers Care Physical Therapist Technician Name Role Phone Preeti Bravo MD Unavailable No Ref-Primary, Physician Primary Care Provider Reason for Visit * Reason Comments Ultrasound US-confirm chorionic ity Genetic Counseling GC-twin , A [place] Encounter Details Date Type Department Care Team (Late st Contact Info) Description 10/28/2021 PRE VISIT [facility] [place] [address] [place] [address] [place] White RN Ultrasound (US-confirm [...] on filedocumented in this encounter Care Teams Physical Therapist Technician Relationship Specialty Start Date End Date No Ref-Primary, Physician PCP - General 04/05/22 Preeti Bravo MD [address] [place] [address] [address] [place], [place] [address] Assigned OBGYN Provider 11/11/21 documented as of this encounter
--- OUTSIDE RECORDS SUMMARY | 2023-08-23 14:02 | XMS_ITS | Clinical Summary ---
Author Organization [facility] Address [place], [place] [address] Care Team Providers Care Whittling Room Operator Name Role Phone Clinic, No Pcp Or [...] intraepithelial neoplasia II) 0 04/01/2005 Overview: 04/01/2005 [place]: BALJINDER II ASCCP recommends: History of CIN2 [...] 01/27/2012 Allergic rhinitis, cause unspecified 04/12/2006 01/27/2012 Encounters Date Type Department Care Team Description 06/30/2023 Lab Requisition [facility] [phone] Lana Claros MD from Last 3 Months Immunizations Name Administration [...] Outcome GA Total Labor Labor/2nd/3rd Weight Sex Type Anes PTL Shirlene A1 A5 Name Clin Term 41w0 d 4.68 kg (10 lb 5 oz) M C-Sect ion SAB 4w0d SAB 4w0d SAB 4w0d Last Filed Vital Signs Vital Sign Reading [...] Procedure Name Priority Date/Time Associated Diagnosis Comments LAB TRACKING EVENT Routine 06/30/2023 8: 15 AM CDT PATH TISSUE EXAM Routine 06/30/2023 8:15 AM CDT HPV THIN PREP Routine 06/14/2022 9:30 AM CDT ANTI HIV 1/2 Routine 03/27/2008 10:12 AM DIETARY SERVICES MANAGER Supervision of Normal First ANTI HCV Timed 05/06/2006 3:27 PM CDT from Last 3 Months or Most Recently Relevant to Health Maintenance Results * LAB TRACKING EVENT (06/30/2023 8:15 AM CDT) Other (Other) Client Collect / Unknown 06/30/2023 8:15 AM CDT 06/30/2023 6:37 PM CDT Lana Claros MD LAB BILL ONLY [facility] LABORATORY [address] [place] [address], * PATH TISSUE EXAM (06/30/2023 8:15 AM CDT) Case Report Pathology Report ?Case: [id number] ? Authorizing Provider: ??Lana Claros MD ?? Collected: ? 06/30/2023 0815 ? Ordering Location: ? [facility] ?Received: ?06/30/2023 1910 ? Pathologist: ? Helga Reeves MD ? Specimens: ?? A) - Peritoneal Biopsy ? B) - Bilateral Fallopian Tubes ? 07/04/2023 1:02 PM CDT [facility] Final Diagnosis A) PERITONEUM, BIOPSY: 1. Multiple inflammatory cysts containing pigment 2. Negative for malignancy B) RIGHT AND LEFT FALLOPIAN TUBES, BILATERAL SALPINGECTOMY: 1. Bilateral fimbriated fallopian tubes with no significant histologic abnormality 2. Focal endometriosis 3. Negative for malignancy 07/04/2023 1:02 PM [facility] EN[facility] Clinical Information Undesired fertility. Endometriosis excised 07/04/2023 1:02 PM T [facility] Gross Description A) Received in formalin, labeled with the patient's name and peritoneal biopsies, is a 1.0 x 1.0 x 0.4 cm aggregate blue-moncada calcified tissue. ??The specimen is submitted in toto in 1 cassette. B) Received in formalin, labeled with the patient's name and right and left fallopian tubes, are two segments of fallopian tube averaging 9.0 cm long, and 1.0 cm diameter. Fimbriated ends are present. No lesions are identified. ??Patient Scheduling Coordinator sections including the entire fimbriated ends are submitted in 4 cassette(s). TLF 06/30/2023 ? 07/04/2023 1:02 PM T [facility] Microscopic Description The final diagnosis is based on microscopic examination of appropriate sections of all specimens. 07/04/2023 1:02 PM [facility] Additional Information Interpreted at [facility], Central Laboratory - [address] [address] 07/04/2023 1:02 PM CDT [facility]- ENTRAL LABORATORY Other (Peritoneal Biopsy) 06/30/2023 8:15 AM CDT 06/30/2023 7:10 PM CDT Specimen (specimen) (Bilateral Fallopian Tubes) 06/30/2023 8:15 AM CDT 06/30/2023 7:10 PM CDT Lana Claros MD PATHOLOGY/CYTOLOG Y [facility] [address] [place] [address], [place] * (ABNORMAL) HPV HIGH RISK (06/14/2022 9:30 AM CDT) TYPE 16 Negative Negative 06/17/2022 1:36 PM CDT [facility] TR[facility] LABORATORY TYPE 18 Negative Negative 06/17/2022 1:36 PM CDT [facility] TRAL LABORATORY OTHER HIGH RISK TYPES Positive(A) Negative 06/17/2022 1:36 PM CDT [facility] TR[facility] Other (Cervical) 06/14/2022 9:30 AM CDT 06/15/2022 2:28 PM CDT Narrative [facility] - 06/17/2022 1:36 PM CDT Specimen is positive for the DNA of any one of, or combination of, the following high risk HPV types: 31, 33, 35, 39, 45, 51, 52, 56, 58, 59, 66, 68. HPV types 16 and 18 DNA were undetectable or below the pre-set threshold. ? Methodology: Felecia Farnaz 4800 HPV Test Lana Claros MD MICROBIOLOGY [facility] [address] [place] [address], [place] * HIV (03/27/2008 10:12 AM DIETARY SERVICES MANAGER) ANTI HIV 1/2 Non-reacti ve [facility] Blood specimen (specimen) BLOOD SPECIMEN / Unknown 03/27/2008 10:12 AM DIETARY SERVICES MANAGER 03/27/2008 10:01 AM DIETARY SERVICES MANAGER Yuridia Armijo NP SEND OUTS [facility] [place]NAL ZIP [phone] [address] * ANTI HCV (05/06/2006 3:27 PM CDT) ANTI HCV Non-reactiv e [facility] 05/06/2006 3:27 PM CDT 05/07/2006 3:19 PM CDT Narrative [facility] - 05/11/2006 12:35 PM CDT Testing Performed By [place], [place] Kelsi Juarez MD SEND OUTS [facility] [address] [place] [address] from Last 3 Months or Most Recently [...] Preferences, Provider to review later Care Teams Whittling Room Operator Relationship Specialty Start Date End Date Clinic, No Pcp Or . PCP - General 09/17/16
[2023-08-23 18:11] LABS: Chlamydia DNA Amplified* NOT DETECTED (No Detected); GC DNA Amplified* NOT DETECTED (No Detected)
== END 2023-08-23 14:00 | disposition home or self-care (01) ==
PROVIDERS: Visit Provider Obstetrics & Gynecology
DX: Z11.3 Encounter for screening for infections with a predominantly sexual mode of transmission (principal)
CPT/HCPCS: 87491; 87591

== ENCOUNTER 2023-08-30 18:07 | Outpatient (CLI) | payer MEDICARE, SELFPAY ==
--- OUTSIDE RECORDS SUMMARY | 2023-09-02 16:51 | XMS_ITS | Clinical Summary ---
Author Organization [place] Address [address] [place] [address] Care Team Providers Care Over The Horizon Targeting Supervisor Name Role Phone No Ref-Primary, Physician Primary [...] Comments Blood Pressure 123/73 04/19/2022 7:00 PM OCC THERAPIST Pulse - - Temperature 36.8 ??C (98.2 ??F) 04/19/2022 7:00 PM CS T Respiratory Rate 18 04/19/2022 7:00 PM OCC THERAPIST Oxygen Saturation 96% 04/04/2022 11:41 PM OCC THERAPIST Inhaled Oxygen Concentration - - Weight - [...] COMPREHENSIVE METABOLIC PANEL STAT 04/19/2022 8:04 PM OCC THERAPIST from Last 3 Months or Most Recently Relevant to Health Maintenance Results * (ABNORMAL) Comprehensive metabolic panel (04/19/2022 8:04 PM OCC THERAPIST) Sodium 135(L) 136 - 145 mmol/L 04/19/2022 8:36 PM OCC THERAPIST [facility] Potassium 4.3 3.4 - 5.3 mmol/L 04/19/2022 8:36 PM OCC THERAPIST LABORATORY Chloride 101 98 - 107 mmol/L 04/19/2022 8:36 PM [facility] Carbon Dioxide (CO2) 22 22 - 29 mmol/L 04/19/2022 8:36 PM [facility] Anion Gap 12 7 - 15 mmol/L 04/19/2022 8:36 PM [facility] Urea Nitrogen 5.3(L) 6.0 - 20.0 mg/dL 04/19/2022 8:36 PM [facility] Creatinine 0.87 0.51 - 0.95 mg/dL 04/19/2022 8:36 PM [facility] Calcium 8.8 8.6 - 10.0 mg/dL 04/19/2022 8:36 PM [facility] Glucose 79 70 - 99 mg/dL 04/19/2022 8:36 PM OCC THERAPIST LABORATORY Alkaline Phosphatase 281(H) 35 - 104 U/L 04/19/2022 8:36 PM [facility] AST 59(H) 10 - 35 U/L 04/19/2022 8:36 PM [facility] ALT 55(H) 10 - 35 U/L 04/19/2022 8:36 PM [facility] Protein Total 6.0(L) 6.4 - 8.3 g/dL 04/19/2022 8:36 PM [facility] Albumin 3.4(L) 3.5 - 5.2 g/dL 04/19/2022 8:36 PM [facility] Bilirubin Total 1.0 <=1.2 mg/dL 04/19/2022 8:36 PM OCC THERAPIST LABORATORY GFR Estimate 88 >60 mL/min/1.7 3m2 04/19/2022 8:36 PM OCC THERAPIST LABORATORY Comment:eGFR calculated usin 2020 CKD-EPI equation. Blood STRUCTURE OF LEFT UPPER LIMB / Unknown Venipuncture / Unknown 04/19/2022 8:04 PM OCC THERAPIST 04/19/2022 8:09 PM OCC THERAPIST Sonja Cummings MD LAB - BLOOD EVELIA LORD [facility] Acute Care Lab [address] Lab (1st floor, no room number) [place] [address], [facility] [phone] from Last 3 Months or Most Recently Relevant to Health Maintenance Advance Directives For more information, please contact: [phone] * Full Code (Latest Code Status on File) Date Activated Date Inactivated Comments 04/05/2022 8:00 AM 04/07/2022 3:10 PM All basic an d advanced life-sustaining interventions are performed as appropriate Question Answer Comments Code status determined by: Discussion with elver kumar/ legal decision maker Care Teams Over The Horizon Targeting Supervisor Relationship Specialty Start Date End Date No Ref-Primary, Physician PCP - General 04/05/22
--- OUTSIDE RECORDS SUMMARY | 2023-09-02 16:51 | XMS_ITS | Referral Summary ---
Author Organization [employer] Address [address] [place] [address] Care Team Providers Care Weft Straightener Name Role Phone No Ref-Primary, Physician Primary [...] Comments Blood Pressure 123/73 04/19/2022 7:00 PM HEALTH SOCIAL WORK PROFESSOR Pulse - - Temperature 36.8 ??C (98.2 ??F) 04/19/2022 7:00 PM CS T Respiratory Rate 18 04/19/2022 7:00 PM HEALTH SOCIAL WORK PROFESSOR Oxygen Saturation 96% 04/04/2022 11:41 PM HEALTH SOCIAL WORK PROFESSOR Inhaled Oxygen Concentration - - Weight - - Height - - Body Mass Index - - Plan of Treatment Not on file Procedures Procedure Name Priority Date/Time Associated Diagnosis Comments COMPREHENSIVE METABOLIC PANEL STAT 04/19/2022 8:04 PM HEALTH SOCIAL WORK PROFESSOR from Last 3 Months or Most Recently Relevant to Health Maintenance Results * (ABNORMAL) Comprehensive metabolic panel (04/19/2022 8:04 PM HEALTH SOCIAL WORK PROFESSOR) Sodium 135(L) 136 - 145 mmol/L 04/19/2022 8:36 PM [facility] Potassium 4.3 3.4 - 5.3 mmol/L 04/19/2022 8:36 PM [facility] Chloride 101 98 - 107 mmol/L 04/19/2022 8:36 PM [facility] Carbon Dioxide (CO2) 22 22 - 29 mmol/L 04/19/2022 8:36 PM [facility] Anion Gap 12 7 - 15 mmol/L 04/19/2022 8:36 PM [facility] Urea Nitrogen 5.3(L) 6.0 - 20.0 mg/dL 04/19/2022 8:36 PM [facility] Creatinine 0.87 0.51 - 0.95 mg/dL 04/19/2022 8:36 PM [facility] Calcium 8.8 8.6 - 10.0 mg/dL 04/19/2022 8:36 PM [facility] Glucose 79 70 - 99 mg/dL 04/19/2022 8:36 PM [facility] Alkaline Phosphatase 281(H) 35 - 104 U/L 04/19/2022 8:36 PM [facility] AST 59(H) 10 - 35 U/L 04/19/2022 8:36 PM [facility] ALT 55(H) 10 - 35 U/L 04/19/2022 8:36 PM HEALTH SOCIAL WORK PROFESSOR LABORATORY Protein Total 6.0(L) 6.4 - 8.3 g/dL 04/19/2022 8:36 PM HEALTH SOCIAL WORK PROFESSOR LABORATORY Albumin 3.4(L) 3.5 - 5.2 g/dL 04/19/2022 8:36 PM HEALTH SOCIAL WORK PROFESSOR LABORATORY Bilirubin Total 1.0 <=1.2 mg/dL 04/19/2022 8:36 PM HEALTH SOCIAL WORK PROFESSOR LABORATORY GFR Estimate 88 >60 mL/min/1.7 3m2 04/19/2022 8:36 PM HEALTH SOCIAL WORK PROFESSOR LABORATORY Comment:eGFR calculated usin 2020 CKD-EPI equation. Blood STRUCTURE OF LEFT UPPER LIMB / Unknown Venipuncture / Unknown 04/19/2022 8:04 PM HEALTH SOCIAL WORK PROFESSOR 04/19/2022 8:09 PM HEALTH SOCIAL WORK PROFESSOR Sonja Cummings MD LAB - BLOOD EVELIA LORD [facility] Organization Address City/State/ZIP Co de Phone Number LABORATORY [facility] Acute Care Lab [address] [facility] Lab (1st floor, no room number) [place] [address], [facility] [phone] from Last 3 Months or Most Recently Relevant to Health Maintenance Advance Directives For more information, please contact: [phone] * Full Code (Latest Code Status on File) Date Activated Date Inactivated Comments 04/05/2022 8:00 AM 04/07/2022 3:10 PM All basic an d advanced life-sustaining interventions are performed as appropriate Question Answer Comments Code status determined by: Discussion with patie nt/ legal decision maker Care Teams Weft Straightener Relationship Specialty Start Date End Date No Ref-Primary, Physician PCP - General 04/05/22
--- OUTSIDE RECORDS SUMMARY | 2023-09-02 16:51 | XMS_ITS | Clinical Summary ---
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 [place] [address], * PATH TISSUE EXAM (06/30/2023 8:15 AM CDT) Case Report Pathology Report ?Case: [id number] ? Authorizing Provider: ??Lana Claros MD ?? Collected: ? 06/30/2023 0815 ? Ordering Location: ? [facility] ?Received: ?06/30/2023 1910 ? Pathologist: ? Helga Reeves MD ? Specimens: ?? A) - Peritoneal Biopsy ? B) - Bilateral Fallopian Tubes ? 07/04/2023 1:02 PM CDT [facility] EN[facility] LAB[facility] Final Diagnosis A) PERITONEUM, BIOPSY: 1. Multiple inflammatory cysts containing pigment 2. Negative for malignancy B) RIGHT AND LEFT FALLOPIAN TUBES, BILATERAL SALPINGECTOMY: 1. Bilateral fimbriated fallopian tubes with no significant histologic abnormality 2. Focal endometriosis 3. Negative for malignancy 07/04/2023 1:02 PM [facility]- ENTRAL LAB[facility]AT[facility] Clinical Information Undesired fertility. Endometriosis excised 07/04/2023 1:02 PM T [facility] Gross Description A) Received [...] ends are present. No lesions are identified. ??Operations Trainer sections including the entire fimbriated ends are submitted in 4 cassette(s). TLF 06/30/2023 ? 07/04/2023 1:[address] [facility] Microscopic Description The final diagnosis is based on microscopic examination of appropriate sections of all specimens. 07/04/2023 1:02 PM [facility]- ENTRAL LAB[facility]ATORY Additional Information Interpreted at [facility], Central Laboratory - [address], [place] [address] 07/04/2023 1:02 PM CDT [facility] LABORATORY- ENTRAL LABORATORY Other (Peritoneal Biopsy) 06/30/2023 8:15 AM CDT 06/30/2023 7:10 PM CDT Specimen (specimen) (Bilateral Fallopian Tubes) 06/30/2023 8:15 AM CDT 06/30/2023 7:10 PM CDT Lana Claros MD PATHOLOGY/CYTOLOG Y [facility] [address] [place] [address], [place] * (ABNORMAL) HPV HIGH RISK (06/14/2022 9:30 AM CDT) TYPE 16 Negative Negative 06/17/2022 1:36 PM CDT [facility] LAB[facility] TYPE 18 Negative Negative 06/17/2022 1:36 PM CDT [facility] TRAL LABORATORY OTHER HIGH RISK TYPES Positive(A) Negative 06/17/2022 1:36 PM CDT [facility] TRAL LABOR[facility]ORY Other (Cervical) 06/14/2022 9:30 AM CDT 06/15/2022 2:28 PM CDT Narrative [facility] - 06/17/2022 1:36 PM CDT Specimen is positive for the DNA of any one of, or combination of, the following high risk HPV types: 31, 33, 35, 39, 45, 51, 52, 56, 58, 59, 66, 68. HPV types 16 and 18 DNA were undetectable or below the pre-set threshold. ? Methodology: Felecia Farnaz 4800 HPV Test Lana Claros MD MICROBIOLOGY [facility] [address] [place] [address], [place] * HIV (03/27/2008 10:12 AM PHYSICIAN INTERNIST) ANTI HIV 1/2 Non-reacti ve [facility] Blood specimen (specimen) BLOOD SPECIMEN / Unknown 03/27/2008 10:12 AM PHYSICIAN INTERNIST 03/27/2008 10:01 AM PHYSICIAN INTERNIST Yuridia Armijo NP SEND OUTS [facility] INTERNAL ZIP [phone] [address] * ANTI HCV (05/06/2006 3:27 PM CDT) ANTI HCV Non-reactiv e [facility] 05/06/2006 3:27 PM CDT 05/07/2006 3:19 PM CDT Narrative [facility] - 05/11/2006 12:35 PM CDT Testing Performed By [place], [place] Kelsi Juarez MD SEND OUTS [facility] [address] [place] [address] from Last 3 Months or Most Recently [...] Preferences, Provider to review later Care Teams Talent Acquisition Program Manager Relationship Specialty Start Date End Date Clinic, No Pcp Or . PCP - General 09/17/16
--- OUTSIDE RECORDS SUMMARY | 2023-09-02 16:51 | XMS_ITS | Encounter Summary ---
Author Organization [place] Address [address] [place] [address] Care Team Providers Care Fuel Management Handler Name Role Phone Preeti Bravo MD Unavailable No Ref-Primary, Physician Primary Care Provider Reason for Visit * Reason Comments Ultrasound US-confirm chorionic ity Genetic Counseling GC-twin , A [place] Encounter Details Date Type Department Care Team (Late st Contact Info) Description 10/28/[address] [facility] [place] [address] [place] [address] Paris White RN Ultrasound (US-confirm [...] on filedocumented in this encounter Care Teams Fuel Management Handler Relationship Specialty Start Date End Date No Ref-Primary, Physician PCP - General 04/05/22 Preeti Bravo MD [address] [place] [address] [address] [place], [place] [address] Assigned OBGYN Provider 11/11/21 documented as of this encounter
== END 2023-08-30 18:08 | disposition home or self-care (01) ==
LOC: NFLDREF 09-02 16:49
PROVIDERS: Visit Provider Obstetrics & Gynecology
DX: Z11.3 Encounter for screening for infections with a predominantly sexual mode of transmission (principal)
CPT/HCPCS: 86592; 86703; 86706; 86803; 87340